=== PATIENT | male | born 1985 | race Caucasian/White ===

== ENCOUNTER 2016-12-30 21:29 | Emergency (ER) | payer MEDICAID ==
[2016-12-30 22:32] LABS: BASO % 0.1 % (0.0-1.0); EOS # 0.1 K/mm3 (0.0-0.50); EOS % 0.9 % (0.0-3.0); LARGE UNSTAINED CELL % 0.3 % (0.0-4.0); LYMPH # 0.4 K/mm3 (1.5-4.5); LYMPH % 2.8 % (24.0-44.0); MEAN CORPUSCULAR HEMOGLOBIN 28.7 pg (27.0-33.0); MEAN CORPUSCULAR HGB CONC 32.9 g/dl (32.0-36.5); MEAN CORPUSCULAR VOLUME 87.4 fl (80.0-96.0); MONO # 0.4 K/mm3 (0.0-0.8); MONO % 3.2 % (0.0-5.0); NEUTROPHILS # 11.7 K/mm3 (1.8-7.7); NEUTROPHILS % 92.7 % (36.0-66.0); PLATELET COUNT, AUTOMATED 278 k/mm3 (150-450); RED CELL DISTRIBUTION WIDTH 13.6 % (11.5-14.5); WHITE BLOOD COUNT 12.6 K/mm3 (4.0-10.0)
[2016-12-30] MEDS ORDERED: ONDANSETRON 4MG/2ML VIAL (J2405) As Ordered ONE (22:32)
[2016-12-30 22:46] LABS: INR 0.95
[2016-12-30 22:53] LABS: ALBUMIN 4.3 GM/DL (3.2-5.2); ALBUMIN/GLOBULIN RATIO 1.08 (1.00-1.93); ALKALINE PHOSPHATASE 195 U/L (45-117); ALT/SGPT 28 U/L (12-78); AMYLASE 136 U/L (25-115); ANION GAP 14 MEQ/L (8-16); AST/SGOT 20 U/L (15-37); BILIRUBIN,DIRECT < 0.1 MG/DL (0.0-0.2); BILIRUBIN,TOTAL 0.4 MG/DL (0.2-1.0); BLOOD UREA NITROGEN 25 MG/DL (7-18); CALCIUM LEVEL 9.2 MG/DL (8.5-10.1); CARBON DIOXIDE LEVEL 27 MEQ/L (21-32); CHLORIDE LEVEL 108 MEQ/L (98-107); CREATININE FOR GFR 0.96 MG/DL (0.70-1.30); GLOMERULAR FILTRATION RATE > 60.0 (>60); GLUCOSE, FASTING 117 MG/DL (70-105); POTASSIUM SERUM 3.6 MEQ/L (3.5-5.1); SODIUM LEVEL 149 MEQ/L (136-145); TOTAL PROTEIN 8.3 GM/DL (6.4-8.2)
--- NOTE | 2016-12-31 00:30 | REPUSA ---
CLINICAL HISTORY: Abdominal pain. TECHNIQUE: Realtime sonographic images were obtained in multiple projections. COMMENTS: Limited evaluation secondary to gaseous distention of the bowels. The liver is of normal size, parenchyma demonstrates normal echogenicity. No discrete hepatic mass is seen. There is no intra or extrahepatic biliary ductal dilatation. CBD measures 2.9 mm. The gallbladder is physiologically distended without evidence of calculi. The gallbladder wall is not thickened and there is no pericholecystic fluid. There is no abdominal as cites. The right kidney measures 9.9x4.7x4.4 cm , free of hydronephrosis. Increased renal echogenicity. IMPRESSION: Increased renal echogenicity. Limited evaluation secondary to gaseous bowel distention. Thank you for your kind referral of this patient.
[2016-12-31] MEDS ORDERED: METOCLOPRAMIDE INJ 10MG/2ML VIAL (J2765) As Ordered ONE (01:09)
[2016-12-31] MEDS ORDERED: ONDANSETRON 4 MG ORAL DISINTEGRATING TAB (S0181) As Ordered ONE (01:38)
--- NOTE | 2016-12-31 02:00 | EDDOCDS ---
Physician Documentation [facility] Name: Waqas Diaz Age: 31 yrs Sex: Male : 1985 Arrival Date: 12/30/2016 Time: 21:29 Bed 6 Private MD: Pat Marks Disposition: 12/31/16 00:28 Discharged to Home/Self Care. Impression: Constipation. - Condition is Stable. - Prescriptions for ZOFRAN ODT 4 mg - dissolve 1 tablet by ORAL route 4 times per day As needed do not chew, do not swallow whole; 10 tablet. - Medication Reconciliation, Local Pharmacy Hours form. - Follow up: Private Physician; When: Call to arrange an appointment; Reason: Recheck today's complaints. - Problem is new. - Symptoms have improved. Historical: - Allergies: tylenol; - Home Meds: 1. felbamate 600 mg oral tab 2.5 tabs bid 2. phenobarbital 32.4 mg Oral tab 1 tab 2 times per day 3. topiramate 100 mg oral tab 2 tabs 2 times per day 4. ranitidine HCl 150 mg Oral cap 1 cap 2 times per day 5. Tab-A-Sandy oral tab daily 6. lisinopril 5 mg Oral tab 1 tab once daily 7. albuterol sulfate 2.5 mg /3 mL (0.083 %) Nebulizer nebu 3 mL 8. Pulmicort 0.25 mg/2 mL Inhl nbsp 9. fleets enema Unknown Unknown every 3 days (Last dose: 12/28/2016) - PMHx: Epilepsy; Cerebral Palsy; Hypertension; GERD; - PSHx: Heel Cord Lengthening; Left Shoulder Reduction; - Social history: Smoking status: Patient states was never smoker of tobacco. No barriers to communication noted. - Family history: Not pertinent. - : The pt / caregiver states he / she is not on anticoagulants. Home medication list is obtained from pill bottles. - Exposure Risk Screening:: None identified. Vital Signs: 12/30 21:32 BP 117 / 81; Pulse 128; Resp 18 S; Temp 98.4(T); Pulse Ox 96% on R/A; Weight 53.52 kg / gr2 117.99 lbs (R); Height 5 ft. 2 in. (157.48 cm) (R); Pain 5/10; 12/31 00:23 BP 136 / 86 (auto/); js15 00:24 Pulse 116; Resp 20; Pulse Ox 94% ; js15 00:53 Pulse Ox 95% ; js15 00:53 BP 163 / 116 (auto/); js15 01:46 BP 140 / 91 (auto/); js15 01:48 Pulse 110; Resp 20; Temp 98.8(TE); Pulse Ox 97% on R/A; js15 12/30 21:32 Body Mass Index 21.58 (53.52 kg, 157.48 cm) gr2 MDM: 12/30 22:02 Ondansetron 4 mg IVP once ordered. ke 22:02 IV Saline Lock ordered. ke 22:02 Undress patient appropriately for examination ordered. ke 22:02 NS 0.9% 1000 ml IV at 250 mL/hr continuous ordered. ke 22:03 Amylase Ordered. EDMS 22:03 Basic Metabolic Profile Ordered. EDMS 22:03 CBC with Diff Ordered. EDMS 22:03 Lipase Ordered. EDMS 22:03 Liver Profile Ordered. EDMS 22:03 Prothrombin Time Profile\E\INR Ordered. EDMS 22:03 Abdomen, Flat\E\Upright,PA Chest Ordered. EDMS 22:05 NOTHING BY MOUTH+DIET ordered. EDMS 22:07 Financial registration complete. ks16 22:08 [facility] Payment Agreement was scanned into [employer] and attached to record. ks16 22:29 Enema - Fleets ordered. ke 22:56 Amylase Reviewed. ke 22:56 Basic Metabolic Profile Reviewed. ke 22:56 CBC with Diff Reviewed. ke 22:56 Liver Profile Reviewed. ke 22:56 Lipase Reviewed. ke 22:56 Prothrombin Time Profile\E\INR Reviewed. ke 22:58 US Gallbladder Ordered. EDMS 23:29 Enema - Fleets ordered. ke 12/31 01:07 Metoclopramide 10 mg IV at 40 mg/hr once over 15 mins ordered. cs11 01:08 Ondansetron ODT Oral Disintegrating Tablet 4 mg PO once; 2 tablets for discharge cs11 ordered. Administered Medications: 12/30 22:32 Drug: NS 0.9% 1000 ml [sodium chloride 0.9 % intravenous solution] Route: IV; Rate: 250 js15 mL/hr; Site: left antecubital; 12/31 01:55 Follow up: IV Status: Completed infusion; IV Intake: 1000ml js15 12/30 22:37 Drug: Ondansetron 4 mg [ondansetron HCl 2 mg/mL intravenous solution (2 mL)] Route: js15 IVP; Site: left antecubital; 12/31 01:15 Drug: Metoclopramide 10 mg [metoclopramide 5 mg/mL injection solution] Route: IV; Rate: js15 40 mg/hr; Infused Over: 15 mins; Site: left antecubital; 01:41 Drug: Ondansetron ODT 4 mg [ondansetron 4 mg disintegrating tablet (1 tabs)] Route: PO; js15 Signatures: Dispatcher [employer] EDMS Fabián Lyon, CIVIL DRAFTSMAN CIVIL DRAFTSMANRob Sun DO DO cs11 Jared BonnerRN RN mb9 Anjali Gaming RN RN js15 Lore Mckeon, Reg Reg ks16 The chart was reviewed and I authenticate all verbal orders and agree with the evaluation and treatment provided.Attachments: 12/30 22:08 [facility] Payment Agreement ks16 MTDD
--- NOTE | 2016-12-31 02:00 | EDDOCDS ---
Nurse's Notes [facility] Name: Waqas Diaz Age: 31 yrs Sex: Male : 1985 Arrival Date: 12/30/2016 Time: 21:29 Bed 6 Private MD: Pat Marks Diagnosis: Constipation Presentation: 12/30 21:40 Presenting complaint: Father states: "He's been vomiting about 8 times today. He ate mb9 breakfast and then he had nothing else the rest of the day". pt's father reports pt last had a bowel movement 3 days ago and that they had to use a fleet enema. Adult Sepsis Screening: The patient does not have new or worsening altered mentation. Patient's respiratory rate is less than 22. Systolic blood pressure is greater than 100. Patient has a qSOFA score of 0- Negative Sepsis Screen. Suicide/Homicide risk assessment- the patient denies having any suicidal and/or homicidal ideations and does not present with any other emotional, behavioral or mental health complaints. Status: Patient is not a service representative or dependent. Transition of care: patient was not received from another setting of care. 21:40 Acuity: LIUS Level 3 mb9 21:40 Method Of Arrival: Walkin/Carried/Asstd mb9 Triage Assessment: 21:50 General: Appears in no apparent distress, Behavior is cooperative. Pain: Unable to use mb9 pain scale. Does not appear to understand pain scale. HIV screening NA for this visit Offered previously. Respiratory: Airway is patent Respiratory effort is even, unlabored. GI: Reports parents report vomiting. Historical: - Allergies: tylenol; - Home Meds: 1. felbamate 600 mg oral tab 2.5 tabs bid 2. phenobarbital 32.4 mg Oral tab 1 tab 2 times per day 3. topiramate 100 mg oral tab 2 tabs 2 times per day 4. ranitidine HCl 150 mg Oral cap 1 cap 2 times per day 5. Tab-A-Sandy oral tab daily 6. lisinopril 5 mg Oral tab 1 tab once daily 7. albuterol sulfate 2.5 mg /3 mL (0.083 %) Nebulizer nebu 3 mL 8. Pulmicort 0.25 mg/2 mL Inhl nbsp 9. fleets enema Unknown Unknown every 3 days (Last dose: 12/28/2016) - PMHx: Epilepsy; Cerebral Palsy; Hypertension; GERD; - PSHx: Heel Cord Lengthening; Left Shoulder Reduction; - Social history: Smoking status: Patient states was never smoker of tobacco. No barriers to communication noted. - Family history: Not pertinent. - : The pt / caregiver states he / she is not on anticoagulants. Home medication list is obtained from pill bottles. - Exposure Risk Screening:: None identified. Screenin/06 00:00 Screening information is obtained from the parent. js15 00:00 Fall risk: At risk due to seizures. The following interventions are performed due to a js15 positive Fall Risk Screen: family at bedside, bed in low position, call light in reach. Assistance ADL's: Requires assistance with meal preparation, this assistance is provided by bathing, assistance is provided by dressing, assistance is provided by toileting, assistance is provided by ambulation, assistance is provided by medication administration, assistance is provided by. Abuse/DV Screen: The patient / caregiver reports he/she is: not in a situation that causes fear, pain or injury. Nutritional screening: No deficits noted. Advance Directives: There is no active DNR order. home support is adequate. Assessment: 12/30 22:30 General: Appears in no apparent distress, Behavior is cooperative. Neurological: Level js15 of Consciousness is awake. Cardiovascular: Heart tones S1 S2 present. Respiratory: Airway is patent Respiratory effort is even, unlabored, Respiratory pattern is regular, symmetrical, Breath sounds are clear bilaterally. GI: Abdomen is distended, Bowel sounds present X 4 quads. Abd is soft and non tender X 4 quads. Derm: Skin is normal. 23:00 Reassessment: Patient appears in no apparent distress at this time. Fleets enema js15 performed; left to dwell per caregiver request; instructed caregiver to use call velazquez when pt was ready to have bowel movement or be cleaned; respirations even and unlabored with intermittent dry heaving; skin normal, warm, dry ;will continue to monitor. 23:34 Reassessment: Patient appears in no apparent distress at this time. Second fleets enema js15 performed per provider order and left to dwell; pt resting on stretcher with eyes closed; respirations even and unlabored; skin normal, warm, dry. 12/31 00:28 General: Appears in no apparent distress, pt had large bowel movement following fleets js15 enema; assisted family with cleaning pt; resting on stretcher, respirations even and unlabored; skin normal, warm, dry. 01:30 Reassessment: Patient appears in no apparent distress at this time. Pt resting on js15 stretcher, respirations even and unlabored; skin pink, warm, dry. Vital Signs: 12/30 21:32 BP 117 / 81; Pulse 128; Resp 18 S; Temp 98.4(T); Pulse Ox 96% on R/A; Weight 53.52 kg gr2 (R); Height 5 ft. 2 in. (157.48 cm) (R); Pain 5/10; 02 00:23 BP 136 / 86 (auto/); js15 00:24 Pulse 116; Resp 20; Pulse Ox 94% ; js15 00:53 Pulse Ox 95% ; js15 00:53 BP 163 / 116 (auto/); js15 01:46 BP 140 / 91 (auto/); js15 01:48 Pulse 110; Resp 20; Temp 98.8(TE); Pulse Ox 97% on R/A; js15 02/ 21:32 Body Mass Index 21.58 (53.52 kg, 157.48 cm) gr2 Vitals: 02 21:32 Log In Time: December 30, 2016 at 21:32. gr2 ED Course: 21:31 Patient visited by Chloe Ortiz. gr2 21:31 CAL MALIN is Private Physician. gr2 21:31 Patient moved to Waiting gr2 21:32 [facility] is Private Physician. gr2 21:33 Patient visited by Chloe Ortiz. gr2 21:33 Patient moved to Pre RCE gr2 21:44 Triage Initiated mb9 21:53 Patient moved to 6 kmg1 21:54 [facility] F[facility]. ke 21:54 Patient visited by Fabián Lyon FNP. ke 21:54 Patient visited by Fabián Lyon FNP. ke 22:08 [facility] Payment Agreement was scanned into [employer] and attached to record. ks16 22:12 Patient name changed from Waqas\\S\\\\S\\Emily\\S\\ to Waqas\\S\\ \\S\\Emily. EDMS 22:29 Patient visited by Fabián Lyon FNP. ke 22:30 Inserted saline lock: 18 gauge in left antecubital area The patient tolerated the js15 procedure well. 22:56 Patient visited by Fabián Lyon FNP. ke 23:03 Patient moved to Ultrasound en 23:28 Patient moved to 6 en 23:29 Patient visited by Fabián Lyon FNP. ke 02 00:00 The patient / caregiver is instructed regarding the plan of care and ED course. js15 00:28 Patient visited by Anjali Gaming RN. js15 00:28 Rob Drake DO is Attending Physician. cs11 00:55 US Gallbladder Returned. EDMS 01:58 Discontinued IV lock intact, bleeding controlled, pressure dressing applied, No js15 redness/swelling at site. No procedures done that require assistance. Administered Medications: 12/30 22:32 Drug: NS 0.9% 1000 ml [sodium chloride 0.9 % intravenous solution] Route: IV; Rate: 250 js15 mL/hr; Site: left antecubital; 12/31 01:55 Follow up: IV Status: Completed infusion; IV Intake: 1000ml js15 12/30 22:37 Drug: Ondansetron 4 mg [ondansetron HCl 2 mg/mL intravenous solution (2 mL)] Route: js15 IVP; Site: left antecubital; 12/31 01:15 Drug: Metoclopramide 10 mg [metoclopramide 5 mg/mL injection solution] Route: IV; Rate: js15 40 mg/hr; Infused Over: 15 mins; Site: left antecubital; 01:41 Drug: Ondansetron ODT 4 mg [ondansetron 4 mg disintegrating tablet (1 tabs)] Route: PO; js15 Intake: 01:55 IV: 1000.00ml; Total: 1000.00ml. js15 Order Results: Lab Order: Amylase; SPEC'M 12/30/16 22:24 Test: AMYLASE; Value: 136; Range: 25-115; Abnormal: Above high normal; Units: U/L; Status: F Lab Order: Basic Metabolic Profile; SPEC'M 12/30/16 22:24 Test: GLUCOSE, FASTING; Value: 117; Range: 70-105; Abnormal: Above high normal; Units: MG/DL; Status: F Test: BLOOD UREA NITROGEN; Value: 25; Range: 7-18; Abnormal: Above high normal; Units: MG/DL; Status: F Test: CREATININE FOR GFR; Value: 0.96; Range: 0.70-1.30; Units: MG/DL; Status: F Test: GLOMERULAR FILTRATION RATE; Value: > 60.0; Range: >60; Status: F Test: SODIUM LEVEL; Value: 149; Range: 136-145; Abnormal: Above high normal; Units: MEQ/L; Status: F Test: POTASSIUM SERUM; Value: 3.6; Range: 3.5-5.1; Units: MEQ/L; Status: F Test: CHLORIDE LEVEL; Value: 108; Range: 98-107; Abnormal: Above high normal; Units: MEQ/L; Status: F Test: CARBON DIOXIDE LEVEL; Value: 27; Range: 21-32; Units: MEQ/L; Status: F Test: ANION GAP; Value: 14; Range: 8-16; Units: MEQ/L; Status: F Test: CALCIUM LEVEL; Value: 9.2; Range: 8.5-10.1; Units: MG/DL; Status: F Test Note: ; Units are mL/min/1.73 m2 Chronic Kidney Disease Staging per NKF: Stage I & II GFR >=60 Normal to Mildly Decreased Stage III GFR 30-59 Moderately Decreased Stage IV GFR 15-29 Severely Decreased Stage V GFR <15 Very Little GFR Left ESRD GFR <15 on LEGAL RECRUITER Lab Order: CBC with Diff; SPEC'M 12/30/16 22:24 Test: WHITE BLOOD COUNT; Value: 12.6; Range: 4.0-10.0; Abnormal: Above high normal; Units: K/mm3; Status: F Test: RED BLOOD COUNT; Value: 4.93; Range: 4.30-6.10; Units: M/mm3; Status: F Test: HEMOGLOBIN; Value: 14.2; Range: 14.0-18.0; Units: g/dl; Status: F Test: HEMATOCRIT; Value: 43.1; Range: 42.0-52.0; Units: %; Status: F Test: MEAN CORPUSCULAR VOLUME; Value: 87.4; Range: 80.0-96.0; Units: fl; Status: F Test: MEAN CORPUSCULAR HEMOGLOBIN; Value: 28.7; Range: 27.0-33.0; Units: pg; Status: F Test: MEAN CORPUSCULAR HGB CONC; Value: 32.9; Range: 32.0-36.5; Units: g/dl; Status: F Test: RED CELL DISTRIBUTION WIDTH; Value: 13.6; Range: 11.5-14.5; Units: %; Status: F Test: PLATELET COUNT, AUTOMATED; Value: 278; Range: 150-450; Units: k/mm3; Status: F Test: NEUTROPHILS %; Value: 92.7; Range: 36.0-66.0; Abnormal: Above high normal; Units: %; Status: F Test: LYMPH %; Value: 2.8; Range: 24.0-44.0; Abnormal: Below low normal; Units: %; Status: F Test: MONO %; Value: 3.2; Range: 0.0-5.0; Units: %; Status: F Test: EOS %; Value: 0.9; Range: 0.0-3.0; Units: %; Status: F Test: BASO %; Value: 0.1; Range: 0.0-1.0; Units: %; Status: F Test: LARGE UNSTAINED CELL %; Value: 0.3; Range: 0.0-4.0; Units: %; Status: F Test: NEUTROPHILS #; Value: 11.7; Range: 1.8-7.7; Abnormal: Above high normal; Units: K/mm3; Status: F Test: LYMPH #; Value: 0.4; Range: 1.5-4.5; Abnormal: Below low normal; Units: K/mm3; Status: F Test: MONO #; Value: 0.4; Range: 0.0-0.8; Units: K/mm3; Status: F Test: EOS #; Value: 0.1; Range: 0.0-0.50; Units: K/mm3; Status: F Test: BASO #; Value: 0.0; Range: 0.0-0.2; Units: K/mm3; Status: F Test: LARGE UNSTAINED CELL #; Value: 0.0; Range: 0.0-0.4; Units: K/mm3; Status: F Lab Order: Lipase; SPEC'M 12/30/16 22:24 Test: LIPASE; Value: 106; Range: 73-393; Units: U/L; Status: F Lab Order: Liver Profile; [facility] 12/30/16 22:24 Test: AST/SGOT; Value: 20; Range: 15-37; Units: U/L; Status: F Test: ALT/SGPT; Value: 28; Range: 12-78; Units: U/L; Status: F Test: ALKALINE PHOSPHATASE; Value: 195; Range: 45-117; Abnormal: Above high normal; Units: U/L; Status: F Test: BILIRUBIN,TOTAL; Value: 0.4; Range: 0.2-1.0; Units: MG/DL; Status: F Test: BILIRUBIN,DIRECT; Value: < 0.1; Range: 0.0-0.2; Units: MG/DL; Status: F Test: TOTAL PROTEIN; Value: 8.3; Range: 6.4-8.2; Abnormal: Above high normal; Units: GM/DL; Status: F Test: ALBUMIN; Value: 4.3; Range: 3.2-5.2; Units: GM/DL; Status: F Test: ALBUMIN/GLOBULIN RATIO; Value: 1.08; Range: 1.00-1.93; Status: F Lab Order: Prothrombin Time Profile\\E\\INR; [facility] 12/30/16 22:24 Test: PROTHROMBIN TIME; Value: 12.8; Range: 12.3-14.5; Units: SECONDS; Status: F Test: INR; Value: 0.95; Status: F Test Note: ; THERAPUTIC HUMAN INR VALUES INDICATIONS NORMAL RANGES PROPHYLAXIS/TREATMENT OF: VENOUS THROMBOSIS 2.0-3.0 PULMONARY EMBOLISM 2.0-3.0 PREVENTION OF SYSTEMIC EMBOLISM FROM: TISSUE HEART VALVES 2.0-3.0 ACUTE MYOCARDIAL INFARCTION 2.0-3.0 VALVULAR HEART DISEASE 2.0-3.0 ATRIAL FIBRILLATION 2.0-3.0 MECHANICAL VALVES(HIGH RISK) 2.5-3.5 RECURRENT MYOCARDIAL INFARCTION 2.5-3.5 Radiology Order: US Gallbladder Test: US Gallbladder REASON FOR EXAMINATION: Biliary Colic; ; CLINICAL HISTORY: Abdominal pain.; TECHNIQUE: Realtime sonographic images were obtained in multiple projections.; COMMENTS:; Limited evaluation secondary to gaseous distention of the bowels.; The liver is of normal size, parenchyma demonstrates normal echogenicity. No discrete hepatic mass is; seen.; There is no intra or extrahepatic biliary ductal dilatation. CBD measures 2.9 mm.; The gallbladder is physiologically distended without evidence of calculi.; The gallbladder wall is not thickened and there is no pericholecystic fluid. There is no abdominal as; cites.; The right kidney measures 9.9x4.7x4.4 cm , free of hydronephrosis. Increased renal echogenicity.; IMPRESSION:; Increased renal echogenicity.; Limited evaluation secondary to gaseous bowel distention.; Thank you for your kind referral of this patient.; ; Outcome: 00:28 Discharge ordered by Provider. cs11 01:58 Discharge Assessment: Patient awake and alert. patient administered narcotics - no. The js15 following High Risk Discharge criteria are identified: None. Discharged to home via wheelchair, with family, with parent. Condition: stable. Discharge instructions given to parents Instructed on discharge instructions, follow up and referral plans. medication usage, Demonstrated understanding of instructions, medications, Pt was receptive of discharge instructions/ teaching. Prescriptions given X 1. Ultrasound Study completed. Property given to family. 01:59 Patient left the ED. js15 Signatures: Dispatcher [employer] EDMS Day Alfonso, RN RN kmg1 Fabián Lyon, CLEARING SUPERVISOR CLEARING SUPERVISOR Rob Mejia DO DO cs11 Chloe Ortiz gr2 Jared Bonner,RN RN mb9 Anjali Gaming RN RN js15 Louise Arrieta Kimberly, Reg Reg ks16 MTDD
--- NOTE | 2016-12-31 08:53 | REP ---
Abdominal series: Three views. History: Abdomen pain. Findings: AP chest x-ray shows no evidence of infiltrate. Heart is not enlarged. Supine and cross-table lateral views of the abdomen show no evidence of free intraperitoneal air. There is air and stool in a nondistended colon. No small or large bowel dilation is seen. Flank stripes are intact. Impression: Unremarkable bowel gas pattern. No evidence of free air or obstruction. Signed by Dat Mcgrath MD 12/31/2016 02:25 P
[2017-01-01] MEDS ORDERED: ENEM1ENE4 PR (18:34)
[2017-01-01] MEDS ORDERED: BUDE0.254 INH (18:34)
[2017-01-01] MEDS ORDERED: IBUP-1114 PO (18:34)
[2017-01-01] MEDS ORDERED: MUCI600T34 PO (18:34)
[2017-01-01] MEDS ORDERED: PHEN32.4 PO (18:34)
[2017-01-01] MEDS ORDERED: TAB-TAB PO (18:34)
[2017-01-01] MEDS ORDERED: ALBU83IN INH (18:34)
[2017-01-01] MEDS ORDERED: RANI150T PO (18:34)
[2017-01-01] MEDS ORDERED: TOPI1TAB31 PO (18:34)
[2017-01-01] MEDS ORDERED: FELB600T5 PO (18:34)
[2017-01-01] MEDS ORDERED: LISI-542 PO (18:34)
--- NOTE | 2017-01-02 03:00 | EDDOCDS ---
Physician Documentation [facility] Name: Waaqs Diaz Age: 31 yrs Sex: Male : 1985 Arrival Date: 12/30/2016 Time: 21:29 Bed 6 Private MD: Pat Marks Disposition: 12/31/16 00:28 Discharged to Home/Self Care. Impression: Constipation. - Condition is Stable. - Prescriptions for ZOFRAN ODT 4 mg - dissolve 1 tablet by ORAL route 4 times per day As needed do not chew, do not swallow whole; 10 tablet. - Medication Reconciliation, Local Pharmacy Hours form. - Follow up: Private Physician; When: Call to arrange an appointment; Reason: Recheck today's complaints. - Problem is new. - Symptoms have improved. Historical: - Allergies: tylenol; - Home Meds: 1. felbamate 600 mg oral tab 2.5 tabs bid 2. phenobarbital 32.4 mg Oral tab 1 tab 2 times per day 3. topiramate 100 mg oral tab 2 tabs 2 times per day 4. ranitidine HCl 150 mg Oral cap 1 cap 2 times per day 5. Tab-A-Sandy oral tab daily 6. lisinopril 5 mg Oral tab 1 tab once daily 7. albuterol sulfate 2.5 mg /3 mL (0.083 %) Nebulizer nebu 3 mL 8. Pulmicort 0.25 mg/2 mL Inhl nbsp 9. fleets enema Unknown Unknown every 3 days (Last dose: 12/28/2016) - PMHx: Epilepsy; Cerebral Palsy; Hypertension; GERD; - PSHx: Heel Cord Lengthening; Left Shoulder Reduction; - Social history: Smoking status: Patient states was never smoker of tobacco. No barriers to communication noted. - Family history: Not pertinent. - : The pt / caregiver states he / she is not on anticoagulants. Home medication list is obtained from pill bottles. - Exposure Risk Screening:: None identified. Vital Signs: 12/30 21:32 BP 117 / 81; Pulse 128; Resp 18 S; Temp 98.4(T); Pulse Ox 96% on R/A; Weight 53.52 kg / gr2 117.99 lbs (R); Height 5 ft. 2 in. (157.48 cm) (R); Pain 5/10; 12/31 00:23 BP 136 / 86 (auto/); js15 00:24 Pulse 116; Resp 20; Pulse Ox 94% ; js15 00:53 Pulse Ox 95% ; js15 00:53 BP 163 / 116 (auto/); js15 01:46 BP 140 / 91 (auto/); js15 01:48 Pulse 110; Resp 20; Temp 98.8(TE); Pulse Ox 97% on R/A; js15 12/30 21:32 Body Mass Index 21.58 (53.52 kg, 157.48 cm) gr2 MDM: 12/30 22:02 Ondansetron 4 mg IVP once ordered. ke 22:02 IV Saline Lock ordered. ke 22:02 Undress patient appropriately for examination ordered. ke 22:02 NS 0.9% 1000 ml IV at 250 mL/hr continuous ordered. ke 22:03 Amylase Ordered. EDMS 22:03 Basic Metabolic Profile Ordered. EDMS 22:03 CBC with Diff Ordered. EDMS 22:03 Lipase Ordered. EDMS 22:03 Liver Profile Ordered. EDMS 22:03 Prothrombin Time Profile\E\INR Ordered. EDMS 22:03 Abdomen, Flat\E\Upright,PA Chest Ordered. EDMS 22:05 NOTHING BY MOUTH+DIET ordered. EDMS 22:07 Financial registration complete. [email or web address] 22:08 [facility] Payment Agreement was scanned into Mobi[employer] and attached to record. ks16 22:29 Enema - Fleets ordered. ke 22:56 Amylase Reviewed. ke 22:56 Basic Metabolic Profile Reviewed. ke 22:56 CBC with Diff Reviewed. ke 22:56 Liver Profile Reviewed. ke 22:56 Lipase Reviewed. ke 22:56 Prothrombin Time Profile\E\INR Reviewed. ke 22:58 US Gallbladder Ordered. EDMS 23:29 Enema - Fleets ordered. ke 12/31 01:07 Metoclopramide 10 mg IV at 40 mg/hr once over 15 mins ordered. cs11 01:08 Ondansetron ODT Oral Disintegrating Tablet 4 mg PO once; 2 tablets for discharge cs11 ordered. 11:53 T-Sheet-- Draft Copy was scanned into MobiApps and attached to record. gb 01/01 17:54 ED course: [facility] faxed formal report of rachna haro for fu mlg. ml Administered Medications: 12/30 22:32 Drug: NS 0.9% 1000 ml [sodium chloride 0.9 % intravenous solution] Route: IV; Rate: 250 js15 mL/hr; Site: left antecubital; 12/31 01:55 Follow up: IV Status: Completed infusion; IV Intake: 1000ml js15 12/30 22:37 Drug: Ondansetron 4 mg [ondansetron HCl 2 mg/mL intravenous solution (2 mL)] Route: js15 IVP; Site: left antecubital; 12/31 01:15 Drug: Metoclopramide 10 mg [metoclopramide 5 mg/mL injection solution] Route: IV; Rate: js15 40 mg/hr; Infused Over: 15 mins; Site: left antecubital; 01:41 Drug: Ondansetron ODT 4 mg [ondansetron 4 mg disintegrating tablet (1 tabs)] Route: PO; js15 Signatures: Dispatcher MedHost EDValeri Sherman MD MD Melina Jara, Reg Reg gb Fabián Lyon, HIDE CURER HIDE CURER Rob Mejia, DO cs11 Jared BonnerRN RN mb9 Anjali Gaming RN RN js15 Lore Mckeon, Reg Reg ks16 The chart was reviewed and I authenticate all verbal orders and agree with the evaluation and treatment provided.Attachments: 12/30 22:08 [facility] Payment Agreement [email or web address] 12/31 11:53 T-Sheet-- Draft Copy gb Chart Complete MTDD
--- NOTE | 2017-01-02 03:00 | EDDOCDS ---
Physician Documentation [facility] Name: Waqas Diaz Age: 31 yrs Sex: Male : 1985 Arrival Date: 12/30/2016 Time: 21:29 Bed 6 Private MD: Pat Marks Disposition: 12/31/16 00:28 Discharged to Home/Self Care. Impression: Constipation. - Condition is Stable. - Prescriptions for ZOFRAN ODT 4 mg - dissolve 1 tablet by ORAL route 4 times per day As needed do not chew, do not swallow whole; 10 tablet. - Medication Reconciliation, Local Pharmacy Hours form. - Follow up: Private Physician; When: Call to arrange an appointment; Reason: Recheck today's complaints. - Problem is new. - Symptoms have improved. Historical: - Allergies: tylenol; - Home Meds: 1. felbamate 600 mg oral tab 2.5 tabs bid 2. phenobarbital 32.4 mg Oral tab 1 tab 2 times per day 3. topiramate 100 mg oral tab 2 tabs 2 times per day 4. ranitidine HCl 150 mg Oral cap 1 cap 2 times per day 5. Tab-A-Sandy oral tab daily 6. lisinopril 5 mg Oral tab 1 tab once daily 7. albuterol sulfate 2.5 mg /3 mL (0.083 %) Nebulizer nebu 3 mL 8. Pulmicort 0.25 mg/2 mL Inhl nbsp 9. fleets enema Unknown Unknown every 3 days (Last dose: 12/28/2016) - PMHx: Epilepsy; Cerebral Palsy; Hypertension; GERD; - PSHx: Heel Cord Lengthening; Left Shoulder Reduction; - Social history: Smoking status: Patient states was never smoker of tobacco. No barriers to communication noted. - Family history: Not pertinent. - : The pt / caregiver states he / she is not on anticoagulants. Home medication list is obtained from pill bottles. - Exposure Risk Screening:: None identified. Vital Signs: 12/30 21:32 BP 117 / 81; Pulse 128; Resp 18 S; Temp 98.4(T); Pulse Ox 96% on R/A; Weight 53.52 kg / gr2 117.99 lbs (R); Height 5 ft. 2 in. (157.48 cm) (R); Pain 5/10; 12/31 00:23 BP 136 / 86 (auto/); js15 00:24 Pulse 116; Resp 20; Pulse Ox 94% ; js15 00:53 Pulse Ox 95% ; js15 00:53 BP 163 / 116 (auto/); js15 01:46 BP 140 / 91 (auto/); js15 01:48 Pulse 110; Resp 20; Temp 98.8(TE); Pulse Ox 97% on R/A; js15 12/30 21:32 Body Mass Index 21.58 (53.52 kg, 157.48 cm) gr2 MDM: 12/30 22:02 Ondansetron 4 mg IVP once ordered. ke 22:02 IV Saline Lock ordered. ke 22:02 Undress patient appropriately for examination ordered. ke 22:02 NS 0.9% 1000 ml IV at 250 mL/hr continuous ordered. ke 22:03 Amylase Ordered. EDMS 22:03 Basic Metabolic Profile Ordered. EDMS 22:03 CBC with Diff Ordered. EDMS 22:03 Lipase Ordered. EDMS 22:03 Liver Profile Ordered. EDMS 22:03 Prothrombin Time Profile\E\INR Ordered. EDMS 22:03 Abdomen, Flat\E\Upright,PA Chest Ordered. EDMS 22:05 NOTHING BY MOUTH+DIET ordered. EDMS 22:07 Financial registration complete. [email or web address] 22:08 [facility] Payment Agreement was scanned into On[employer] and attached to record. ks16 22:29 Enema - Fleets ordered. ke 22:56 Amylase Reviewed. ke 22:56 Basic Metabolic Profile Reviewed. ke 22:56 CBC with Diff Reviewed. ke 22:56 Liver Profile Reviewed. ke 22:56 Lipase Reviewed. ke 22:56 Prothrombin Time Profile\E\INR Reviewed. ke 22:58 US Gallbladder Ordered. EDMS 23:29 Enema - Fleets ordered. ke 12/31 01:07 Metoclopramide 10 mg IV at 40 mg/hr once over 15 mins ordered. cs11 01:08 Ondansetron ODT Oral Disintegrating Tablet 4 mg PO once; 2 tablets for discharge cs11 ordered. 11:53 T-Sheet-- Draft Copy was scanned into Onavo and attached to record. gb 01/01 17:54 ED course: [facility] faxed formal report of rachna haro for fu mlg. ml Administered Medications: 12/30 22:32 Drug: NS 0.9% 1000 ml [sodium chloride 0.9 % intravenous solution] Route: IV; Rate: 250 js15 mL/hr; Site: left antecubital; 12/31 01:55 Follow up: IV Status: Completed infusion; IV Intake: 1000ml js15 12/30 22:37 Drug: Ondansetron 4 mg [ondansetron HCl 2 mg/mL intravenous solution (2 mL)] Route: js15 IVP; Site: left antecubital; 12/31 01:15 Drug: Metoclopramide 10 mg [metoclopramide 5 mg/mL injection solution] Route: IV; Rate: js15 40 mg/hr; Infused Over: 15 mins; Site: left antecubital; 01:41 Drug: Ondansetron ODT 4 mg [ondansetron 4 mg disintegrating tablet (1 tabs)] Route: PO; js15 Signatures: Dispatcher MedHost EDValeri Sherman MD MD Melina Jara, Reg Reg gb Fabián Lyon, .NET PROGRAMMER .NET PROGRAMMER Rob Mejia, DO cs11 Jared BonnerRN RN mb9 Anjali Gaming RN RN js15 Lore Mckeon, Reg Reg ks16 The chart was reviewed and I authenticate all verbal orders and agree with the evaluation and treatment provided.Attachments: 12/30 22:08 [facility] Payment Agreement [email or web address] 12/31 11:53 T-Sheet-- Draft Copy gb Chart Complete MTDD
--- NOTE | 2017-01-02 03:00 | EDDOCDS ---
Nurse's Notes [facility] Name: Waqas Diaz Age: 31 yrs Sex: Male : 1985 Arrival Date: 12/30/2016 Time: 21:29 Bed 6 Private MD: Pat Marks Diagnosis: Constipation Presentation: 12/30 21:40 Presenting complaint: Father states: "He's been vomiting about 8 times today. He ate mb9 breakfast and then he had nothing else the rest of the day". pt's father reports pt last had a bowel movement 3 days ago and that they had to use a fleet enema. Adult Sepsis Screening: The patient does not have new or worsening altered mentation. Patient's respiratory rate is less than 22. Systolic blood pressure is greater than 100. Patient has a qSOFA score of 0- Negative Sepsis Screen. Suicide/Homicide risk assessment- the patient denies having any suicidal and/or homicidal ideations and does not present with any other emotional, behavioral or mental health complaints. 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 Transition of care: patient was not received from another setting of care. 21:40 Acuity: LUIS Level 3 mb9 21:40 Method Of Arrival: Walkin/Carried/Asstd mb9 Triage Assessment: 21:50 General: Appears in no apparent distress, Behavior is cooperative. Pain: Unable to use mb9 pain scale. Does not appear to understand pain scale. HIV screening NA for this visit Offered previously. Respiratory: Airway is patent Respiratory effort is even, unlabored. GI: Reports parents report vomiting. Historical: - Allergies: tylenol; - Home Meds: 1. felbamate 600 mg oral tab 2.5 tabs bid 2. phenobarbital 32.4 mg Oral tab 1 tab 2 times per day 3. topiramate 100 mg oral tab 2 tabs 2 times per day 4. ranitidine HCl 150 mg Oral cap 1 cap 2 times per day 5. Tab-A-Sandy oral tab daily 6. lisinopril 5 mg Oral tab 1 tab once daily 7. albuterol sulfate 2.5 mg /3 mL (0.083 %) Nebulizer nebu 3 mL 8. Pulmicort 0.25 mg/2 mL Inhl nbsp 9. fleets enema Unknown Unknown every 3 days (Last dose: 12/28/2016) - PMHx: Epilepsy; Cerebral Palsy; Hypertension; GERD; - PSHx: Heel Cord Lengthening; Left Shoulder Reduction; - Social history: Smoking status: Patient states was never smoker of tobacco. No barriers to communication noted. - Family history: Not pertinent. - : The pt / caregiver states he / she is not on anticoagulants. Home medication list is obtained from pill bottles. - Exposure Risk Screening:: None identified. Screenin/06 00:00 Screening information is obtained from the parent. js15 00:00 Fall risk: At risk due to seizures. The following interventions are performed due to a js15 positive Fall Risk Screen: family at bedside, bed in low position, call light in reach. Assistance ADL's: Requires assistance with meal preparation, this assistance is provided by bathing, assistance is provided by dressing, assistance is provided by toileting, assistance is provided by ambulation, assistance is provided by medication administration, assistance is provided by. Abuse/DV Screen: The patient / caregiver reports he/she is: not in a situation that causes fear, pain or injury. Nutritional screening: No deficits noted. Advance Directives: There is no active DNR order. home support is adequate. Assessment: 12/30 22:30 General: Appears in no apparent distress, Behavior is cooperative. Neurological: Level js15 of Consciousness is awake. Cardiovascular: Heart tones S1 S2 present. Respiratory: Airway is patent Respiratory effort is even, unlabored, Respiratory pattern is regular, symmetrical, Breath sounds are clear bilaterally. GI: Abdomen is distended, Bowel sounds present X 4 quads. Abd is soft and non tender X 4 quads. Derm: Skin is normal. 23:00 Reassessment: Patient appears in no apparent distress at this time. Fleets enema js15 performed; left to dwell per caregiver request; instructed caregiver to use call velazquez when pt was ready to have bowel movement or be cleaned; respirations even and unlabored with intermittent dry heaving; skin normal, warm, dry ;will continue to monitor. 23:34 Reassessment: Patient appears in no apparent distress at this time. Second fleets enema js15 performed per provider order and left to dwell; pt resting on stretcher with eyes closed; respirations even and unlabored; skin normal, warm, dry. 12/31 00:28 General: Appears in no apparent distress, pt had large bowel movement following fleets js15 enema; assisted family with cleaning pt; resting on stretcher, respirations even and unlabored; skin normal, warm, dry. 01:30 Reassessment: Patient appears in no apparent distress at this time. Pt resting on js15 stretcher, respirations even and unlabored; skin pink, warm, dry. Vital Signs: 12/30 21:32 BP 117 / 81; Pulse 128; Resp 18 S; Temp 98.4(T); Pulse Ox 96% on R/A; Weight 53.52 kg gr2 (R); Height 5 ft. 2 in. (157.48 cm) (R); Pain 5/10; 02 00:23 BP 136 / 86 (auto/); js15 00:24 Pulse 116; Resp 20; Pulse Ox 94% ; js15 00:53 Pulse Ox 95% ; js15 00:53 BP 163 / 116 (auto/); js15 01:46 BP 140 / 91 (auto/); js15 01:48 Pulse 110; Resp 20; Temp 98.8(TE); Pulse Ox 97% on R/A; js15 02/ 21:32 Body Mass Index 21.58 (53.52 kg, 157.48 cm) gr2 Vitals: 02 21:32 Log In Time: December 30, 2016 at 21:32. gr2 ED Course: 21:31 Patient visited by Chloe Ortiz. gr2 21:31 CAL MALIN is Private Physician. gr2 21:31 Patient moved to Waiting gr2 21:32 [facility] is Private Physician. gr2 21:33 Patient visited by Chloe Ortiz. gr2 21:33 Patient moved to Pre RCE gr2 21:44 Triage Initiated mb9 21:53 Patient moved to 6 kmg1 21:54 [facility] ke 21:54 Patient visited by Fabián Lyon FNP. ke 21:54 Patient visited by Fabián Lyon FNP. ke 22:08 [facility] Payment Agreement was scanned into [employer] and attached to record. ks16 22:12 Patient name changed from Waqas\\S\\\\S\\Emily\\S\\ to Waqas\\S\\ \\S\\Emily. EDMS 22:29 Patient visited by Fabián Lyon FNP. ke 22:30 Inserted saline lock: 18 gauge in left antecubital area The patient tolerated the js15 procedure well. 22:56 Patient visited by Fabián Lyon FNP. ke 23:03 Patient moved to Ultrasound en 23:28 Patient moved to 6 en 23:29 Patient visited by Fabián Lyon FNP. ke 12/31 00:00 The patient / caregiver is instructed regarding the plan of care and ED course. js15 00:28 Patient visited by Anjali Gaming RN. js15 00:28 Rob Drake DO is Attending Physician. cs11 00:55 US Gallbladder Returned. EDMS 01:58 Discontinued IV lock intact, bleeding controlled, pressure dressing applied, No js15 redness/swelling at site. No procedures done that require assistance. 08:57 Abdomen, Flat\\E\\Upright,PA Chest Returned. EDMS 11:53 T-Sheet-- Draft Copy was scanned into [employer] and attached to record. gb Administered Medications: 12/30 22:32 Drug: NS 0.9% 1000 ml [sodium chloride 0.9 % intravenous solution] Route: IV; Rate: 250 js15 mL/hr; Site: left antecubital; 12/31 01:55 Follow up: IV Status: Completed infusion; IV Intake: 1000ml 15 12/30 22:37 Drug: Ondansetron 4 mg [ondansetron HCl 2 mg/mL intravenous solution (2 mL)] Route: js15 IVP; Site: left antecubital; 12/31 01:15 Drug: Metoclopramide 10 mg [metoclopramide 5 mg/mL injection solution] Route: IV; Rate: js15 40 mg/hr; Infused Over: 15 mins; Site: left antecubital; 01:41 Drug: Ondansetron ODT 4 mg [ondansetron 4 mg disintegrating tablet (1 tabs)] Route: PO; Intake: 01:55 IV: 1000.00ml; Total: 1000.00ml. js15 Order Results: Lab Order: Amylase; SPEC'M 12/30/16 22:24 Test: AMYLASE; Value: 136; Range: 25-115; Abnormal: Above high normal; Units: U/L; Status: F Lab Order: Basic Metabolic Profile; SPEC'M 12/30/16 22:24 Test: GLUCOSE, FASTING; Value: 117; Range: 70-105; Abnormal: Above high normal; Units: MG/DL; Status: F Test: BLOOD UREA NITROGEN; Value: 25; Range: 7-18; Abnormal: Above high normal; Units: MG/DL; Status: F Test: CREATININE FOR GFR; Value: 0.96; Range: 0.70-1.30; Units: MG/DL; Status: F Test: GLOMERULAR FILTRATION RATE; Value: > 60.0; Range: >60; Status: F Test: SODIUM LEVEL; Value: 149; Range: 136-145; Abnormal: Above high normal; Units: MEQ/L; Status: F Test: POTASSIUM SERUM; Value: 3.6; Range: 3.5-5.1; Units: MEQ/L; Status: F Test: CHLORIDE LEVEL; Value: 108; Range: 98-107; Abnormal: Above high normal; Units: MEQ/L; Status: F Test: CARBON DIOXIDE LEVEL; Value: 27; Range: 21-32; Units: MEQ/L; Status: F Test: ANION GAP; Value: 14; Range: 8-16; Units: MEQ/L; Status: F Test: CALCIUM LEVEL; Value: 9.2; Range: 8.5-10.1; Units: MG/DL; Status: F Test Note: ; Units are mL/min/1.73 m2 Chronic Kidney Disease Staging per NKF: Stage I & II GFR >=60 Normal to Mildly Decreased Stage III GFR 30-59 Moderately Decreased Stage IV GFR 15-29 Severely Decreased Stage V GFR <15 Very Little GFR Left ESRD GFR <15 on [employer] Lab Order: CBC with Diff; SPEC'M 12/30/16 22:24 Test: WHITE BLOOD COUNT; Value: 12.6; Range: 4.0-10.0; Abnormal: Above high normal; Units: K/mm3; Status: F Test: RED BLOOD COUNT; Value: 4.93; Range: 4.30-6.10; Units: M/mm3; Status: F Test: HEMOGLOBIN; Value: 14.2; Range: 14.0-18.0; Units: g/dl; Status: F Test: HEMATOCRIT; Value: 43.1; Range: 42.0-52.0; Units: %; Status: F Test: MEAN CORPUSCULAR VOLUME; Value: 87.4; Range: 80.0-96.0; Units: fl; Status: F Test: MEAN CORPUSCULAR HEMOGLOBIN; Value: 28.7; Range: 27.0-33.0; Units: pg; Status: F Test: MEAN CORPUSCULAR HGB CONC; Value: 32.9; Range: 32.0-36.5; Units: g/dl; Status: F Test: RED CELL DISTRIBUTION WIDTH; Value: 13.6; Range: 11.5-14.5; Units: %; Status: F Test: PLATELET COUNT, AUTOMATED; Value: 278; Range: 150-450; Units: k/mm3; Status: F Test: NEUTROPHILS %; Value: 92.7; Range: 36.0-66.0; Abnormal: Above high normal; Units: %; Status: F Test: LYMPH %; Value: 2.8; Range: 24.0-44.0; Abnormal: Below low normal; Units: %; Status: F Test: MONO %; Value: 3.2; Range: 0.0-5.0; Units: %; Status: F Test: EOS %; Value: 0.9; Range: 0.0-3.0; Units: %; Status: F Test: BASO %; Value: 0.1; Range: 0.0-1.0; Units: %; Status: F Test: LARGE UNSTAINED CELL %; Value: 0.3; Range: 0.0-4.0; Units: %; Status: F Test: NEUTROPHILS #; Value: 11.7; Range: 1.8-7.7; Abnormal: Above high normal; Units: K/mm3; Status: F Test: LYMPH #; Value: 0.4; Range: 1.5-4.5; Abnormal: Below low normal; Units: K/mm3; Status: F Test: MONO #; Value: 0.4; Range: 0.0-0.8; Units: K/mm3; Status: F Test: EOS #; Value: 0.1; Range: 0.0-0.50; Units: K/mm3; Status: F Test: BASO #; Value: 0.0; Range: 0.0-0.2; Units: K/mm3; Status: F Test: LARGE UNSTAINED CELL #; Value: 0.0; Range: 0.0-0.4; Units: K/mm3; Status: F Lab Order: Lipase; [facility] 12/30/16 22:24 Test: LIPASE; Value: 106; Range: 73-393; Units: U/L; Status: F Lab Order: Liver Profile; [facility] 12/30/16 22:24 Test: AST/SGOT; Value: 20; Range: 15-37; Units: U/L; Status: F Test: ALT/SGPT; Value: 28; Range: 12-78; Units: U/L; Status: F Test: ALKALINE PHOSPHATASE; Value: 195; Range: 45-117; Abnormal: Above high normal; Units: U/L; Status: F Test: BILIRUBIN,TOTAL; Value: 0.4; Range: 0.2-1.0; Units: MG/DL; Status: F Test: BILIRUBIN,DIRECT; Value: < 0.1; Range: 0.0-0.2; Units: MG/DL; Status: F Test: TOTAL PROTEIN; Value: 8.3; Range: 6.4-8.2; Abnormal: Above high normal; Units: GM/DL; Status: F Test: ALBUMIN; Value: 4.3; Range: 3.2-5.2; Units: GM/DL; Status: F Test: ALBUMIN/GLOBULIN RATIO; Value: 1.08; Range: 1.00-1.93; Status: F Lab Order: Prothrombin Time Profile\\E\\INR; [facility] 12/30/16 22:24 Test: PROTHROMBIN TIME; Value: 12.8; Range: 12.3-14.5; Units: SECONDS; Status: F Test: INR; Value: 0.95; Status: F Test Note: ; THERAPUTIC HUMAN INR VALUES INDICATIONS NORMAL RANGES PROPHYLAXIS/TREATMENT OF: VENOUS THROMBOSIS 2.0-3.0 PULMONARY EMBOLISM 2.0-3.0 PREVENTION OF SYSTEMIC EMBOLISM FROM: TISSUE HEART VALVES 2.0-3.0 ACUTE MYOCARDIAL INFARCTION 2.0-3.0 VALVULAR HEART DISEASE 2.0-3.0 ATRIAL FIBRILLATION 2.0-3.0 MECHANICAL VALVES(HIGH RISK) 2.5-3.5 RECURRENT MYOCARDIAL INFARCTION 2.5-3.5 Radiology Order: Abdomen, Flat\\E\\Upright,PA Chest Test: Abdomen, Flat\\E\\Upright,PA Chest REASON FOR EXAMINATION: Abdomen Pain; Abdominal series: Three views.; ; History: Abdomen pain.; ; Findings: AP chest x-ray shows no evidence of infiltrate. Heart is not; enlarged.; ; Supine and cross-table lateral views of the abdomen show no evidence of free; intraperitoneal air. There is air and stool in a nondistended colon. No small; or large bowel dilation is seen. Flank stripes are intact.; ; Impression:; ; Unremarkable bowel gas pattern. No evidence of free air or obstruction.; ; ; Signed by; Dat Mcgrath MD 12/31/2016 02:25 P; Radiology Order: US Gallbladder Test: US Gallbladder REASON FOR EXAMINATION: Biliary Colic; ; CLINICAL HISTORY: Abdominal pain.; TECHNIQUE: Realtime sonographic images were obtained in multiple projections.; COMMENTS:; Limited evaluation secondary to gaseous distention of the bowels.; The liver is of normal size, parenchyma demonstrates normal echogenicity. No discrete hepatic mass is; seen.; There is no intra or extrahepatic biliary ductal dilatation. CBD measures 2.9 mm.; The gallbladder is physiologically distended without evidence of calculi.; The gallbladder wall is not thickened and there is no pericholecystic fluid. There is no abdominal as; cites.; The right kidney measures 9.9x4.7x4.4 cm , free of hydronephrosis. Increased renal echogenicity.; IMPRESSION:; Increased renal echogenicity.; Limited evaluation secondary to gaseous bowel distention.; Thank you for your kind referral of this patient.; ; Outcome: 00:28 Discharge ordered by Provider. cs11 01:58 Discharge Assessment: Patient awake and alert. patient administered narcotics - no. The js15 following High Risk Discharge criteria are identified: None. Discharged to home via wheelchair, with family, with parent. Condition: stable. Discharge instructions given to parents Instructed on discharge instructions, follow up and referral plans. medication usage, Demonstrated understanding of instructions, medications, Pt was receptive of discharge instructions/ teaching. Prescriptions given X 1. Ultrasound Study completed. Property given to family. 01:59 Patient left the ED. js15 Signatures: Dispatcher MedHoDay Syed, RN RN kmg1 Melina Jara, Reg Reg gb Fabián Lyon, ROCKET SCIENTIST ROCKET SCIENTIST Rob Mejia, DO GARNER cs11 Chloe Ortiz gr2 Jared Bonner,RN RN mb9 Anjali Gaming,RN RN js15 Louise Arrieta Kimberly, Reg Reg ks16 Chart Complete MTDD
== END 2016-12-31 01:59 | disposition home or self-care (01) ==
LOC: M ED 21:29
DX: K59.00 Constipation, unspecified (principal); I10 Essential (primary) hypertension; G80.9 Cerebral palsy, unspecified; G40.909 Epilepsy, unspecified, not intractable, without status epilepticus; K21.9 Gastro-esophageal reflux disease without esophagitis; Z79.899 Other long term (current) drug therapy; Z88.6 Allergy status to analgesic agent
CPT/HCPCS: 74022; 76705; 80048; 80076; 82150; 83690; 85025; 85610; 96361; 96374; 96375; 99284; J2405; J2765

== ENCOUNTER 2017-01-01 15:31 | Inpatient (IN) | payer MEDICAID ==
[~2017-01-01] VITALS: Ht 157.5 cm; Wt 47.8 kg
[2017-01-01 16:50] LABS: MEAN CORPUSCULAR HEMOGLOBIN 29.3 pg (27.0-33.0); MEAN CORPUSCULAR HGB CONC 32.9 g/dl (32.0-36.5); RED CELL DISTRIBUTION WIDTH 13.7 % (11.5-14.5)
[2017-01-01 17:15] LABS: CALCIUM LEVEL 8.2 MG/DL (8.5-10.1); GLOMERULAR FILTRATION RATE 30.5 (>60); POTASSIUM SERUM 3.1 MEQ/L (3.5-5.1)
[2017-01-01 17:27] LABS: CREATININE FOR GFR 2.61 MG/DL (0.70-1.30)
[2017-01-01] MEDS ORDERED: TOPI1TAB31 PO (18:34)
[2017-01-01] MEDS ORDERED: LISI-542 PO (18:34)
[2017-01-01] MEDS ORDERED: RANI150T PO (18:34)
[2017-01-01] MEDS ORDERED: ALBU83IN INH (18:34)
[2017-01-01] MEDS ORDERED: FELB600T5 PO (18:34)
[2017-01-01] MEDS ORDERED: IBUP-1114 PO (18:34)
[2017-01-01] MEDS ORDERED: ENEM1ENE4 PR (18:34)
[2017-01-01] MEDS ORDERED: TAB-TAB PO (18:34)
[2017-01-01] MEDS ORDERED: PHEN32.4 PO (18:34)
[2017-01-01] MEDS ORDERED: MUCI600T34 PO (18:34)
[2017-01-01] MEDS ORDERED: BUDE0.254 INH (18:34)
[2017-01-01] MEDS ORDERED: NS 1,000 ML IV SCH (19:45)
[2017-01-01 20:18] LABS: ALBUMIN 3.8 GM/DL (3.2-5.2); ALBUMIN/GLOBULIN RATIO 0.95 (1.00-1.93); BILIRUBIN,TOTAL 0.2 MG/DL (0.2-1.0); TOTAL PROTEIN 7.8 GM/DL (6.4-8.2)
--- NOTE | 2017-01-01 20:50 | REPUSA ---
CT of the abdomen and pelvis without contrast Clinical statement: Pain. Technique: Multiple axial CT images were obtained from the base of the lungs to the floor of the pelv is utilizing 5 mm axial slices without administration of contrast. Coronal and sagittal reconstructio ns were also obtained. Comparison: 01/05/2015. Findings: Chest: The visualized lung bases are clear. Abdomen: The kidneys are normal in size bilaterally. There is no evidence of hydronephrosis or nephro lithiasis. The liver, spleen, pancreas, gallbladder and adrenal glands are unremarkable. The aorta de monstrates normal caliber and contour. There is no abdominal lymphadenopathy or ascites. Pelvis: Moderate amount of stool fills the colon. The bowel is otherwise unremarkable, with no obstru ctive or inflammatory changes. The appendix is normal. The urinary bladder is within normal limits. T here is no pelvic lymphadenopathy or ascites. The other pelvic structures appear unremarkable. Bones: There are no suspicious osseous abnormalities seen. Impression: Moderate constipation. No other acute findings.
--- NOTE | 2017-01-01 21:33 | HPEPDOC ---
Medical History and Physical Date of Admission Jan 01, 2017 at 19:45 History and Physical PRIMARY CARE PROVIDER: ATTENDING: Chelsea Hines MD CHIEF COMPLAINT: Generalized weakness dehydration HISTORY OF PRESENT ILLNESS: This is a 31-year-old male past medical history of cerebral palsy, epilepsy, GERD, hypertension and presents with nausea/vomiting and generalized weakness. Patient is nonverbal at baseline and parents gave most of the history. Patient had upper respiratory tract infection 2 weeks ago after which he's been having nausea and nonbilious nonbloody vomiting. Patient's been having a very poor appetite and has not been eating very much. Patient is also been having a decrease in urination. In the ED patient was noted to have acute renal failure as well as hypernatremia. Patient was also hypotensive with systolic blood pressure in the low 80s. Patient was started on normal saline IV fluids given 2 L boluses. PAST MEDICAL HISTORY: As per HPI PAST SURGICAL HISTORY: Teeth extraction SOCIAL HISTORY: No tobacco, alcohol, illicit drug use. Lives with family. FAMILY HISTORY: Noncontributory ALLERGIES: Please see below. REVIEW OF SYSTEMS: Patient is nonverbal given his cerebral palsy. History is from parents. HEENT: Denies sore throat/headache CARDIOVASCULAR: Denies chest pain/palpitations RESPIRATORY: No shortness of breath/cough GASTROINTESTINAL: denies nausea/vomiting GENITOURINARY: Denies dysuria/urinary urgency. MUSCULOSKELETAL: Denies myalgias/arthralgias NEUROLOGICAL: Denies any focal weakness Rest of ROS negative. HOME MEDICATIONS: Please see below. PHYSICAL EXAMINATION: Vitals: (see below) General: No acute distress, laying comfortably in bed. Sleeping. Easily arousable. HEENT: Moist mucous membranes. Neck: No JVD or lymphadenopathy Cardiac: RRR, No murmurs Pulm: Clear to auscultation b/l. No wheezing, rhonchi Abd: NT/ND + BS Ext: No edema or cyanosis LABORATORY DATA: See below. IMAGING: CT Abd/pelvis 01/01/17 Findings: Chest: The visualized lung bases are clear. Abdomen: The kidneys are normal in size bilaterally. There is no evidence of hydronephrosis or nephrolithiasis. The liver, spleen, pancreas, gallbladder and adrenal glands are unremarkable. The aorta demonstrates normal caliber and contour. There is no abdominal lymphadenopathy or ascites. Pelvis: Moderate amount of stool fills the colon. The bowel is otherwise unremarkable, with no obstructive or inflammatory changes. The appendix is normal. The urinary bladder is within normal limits. There is no pelvic lymphadenopathy or ascites. The other pelvic structures appear unremarkable. Bones: There are no suspicious osseous abnormalities seen. Impression: Moderate constipation. No other acute findings MICROBIOLOGY: Please see below. ASSESSMENT/PLAN: Severe dehydration,likely the setting of gastroenteritis. Patient's nausea and vomiting have improved. His sodium was 154 formed presentation is getting normal saline IV fluids. His fluids were changed to D5 normal saline. We'll continue to monitor sodium level. Zofran and Protonix. CT abdomen pelvis negative. Acute kidney injury- likely prerenal secondary to her dehydration, ACEi, NSAIDs. Continue IV fluid resuscitation avoid nephrotoxins. Hold lisinopril. Hypokalemia - replaced. Leukocytosis - likely reactive. No source of infection at this time. Trend and monitor for sources of infection. Blood cx ordered. UA negative. CXR pending. Epilepsy- Continue patient's antiepileptic medications. Family states that the patient has been having seizures daily since he was a child. We will order EEG. Will need neurology follow-up outpatient. GERD- continue PPI Hypertension- patient's currently hypotensive we will hold lisinopril. DVT prophylaxis- heparin subcutaneous Patient will be followed by Dr. Dow starting 01/02/17 at 7 AM. Vital Signs Blood pressure 130/71, heart rate 90, respiratory rate 17, oxygen saturation 98 % on room air, afebrile. Laboratory Data Labs 24H Laboratory Tests 2 01/01/17 16:33: Blood Urea Nitrogen 44#H, Creatinine 2.61#H, Sodium Level 154H, Potassium Level 3.1L, Chloride Level 113H, Carbon Dioxide Level 30, Calcium Level 8.2L, Aspartate Amino Transf (AST/SGOT) 20, Alanine Aminotransferase (ALT/SGPT) 28, Alkaline Phosphatase 153H, Total Bilirubin 0.2, Total Protein 7.8, Albumin 3.8, Albumin/Globulin Ratio 0.95L, Anion Gap 11, Glomerular Filtration Rate 30.5L 01/01/17 17:10: Urine Amorphous Sediment , Urine Appearance HAZY, Urine Color DELMIS, Urine pH 5.0, Urine Specific Sterling 1.025, Urine Protein 2+H, Urine Glucose (UA) 1+H, Urine Ketones 1+H, Urine Urobilinogen 2.0H, Urine Bilirubin 1+H, Urine Leukocyte Esterase NEGATIVE, Urine Bacteria (Auto) NEGATIVE, Urine Blood NEGATIVE, Urine Calcium Carbonate Cryst(Auto) , Urine Calcium Oxalate Cryst ( Auto) , Urine Calcium Phosphate Naina (Auto) , Urine Cellular Casts , Urine Cystine Crystals , Urine Granular Casts (Auto) , Urine Hyaline Casts (Auto) 0, Urine Leucine Crystals , Urine Mucus (Auto) SMALL, Urine Nitrite NEGATIVE, Urine Oval Fat Bodies (Auto) , Urine RBC (Auto) 0, Urine Renal Epithelial Cells , Urine Sperm (Auto) , Urine Squamous Epithelial Cells 0, Urine Transitional Epithelial Cells , Urine Trichomonas (Auto) , Urine Triple Phosphate Cryst (Auto ) , Urine Tyrosine Crystals , Urine Uric Acid Crystals (Auto) , Urine WBC (Auto ) 1, Urine Waxy Casts (Auto) , Urine Yeast-Like Cells (Auto) CBC/BMP Laboratory Tests 01/01/17 16:33 Calcium Level 8.2 L, Aspartate Amino Transf (AST/SGOT) 20, Alanine Aminotransferase (ALT/SGPT) 28, Alkaline Phosphatase 153 H, Total Bilirubin 0.2 , Total Protein 7.8, Albumin 3.8, Red Blood Count 4.39, Mean Corpuscular Volume 89.0, Mean Corpuscular Hemoglobin 29.3, Mean Corpuscular Hemoglobin Concent 32.9 , Red Cell Distribution Width 13.7 Home Medications Scheduled (Felbamate) 600 Mg Tab 900 MG PO BID (Tab-A-Sandy) 1 Tab Tab 1 TAB PO DAILY Lisinopril (Lisinopril) 5 Mg Tab 5 MG PO QHS Phenobarbital (Phenobarbital) 32.4 Mg Tab 32.4 MG PO BID Ranitidine HCl (Ranitidine HCl) 150 Mg Tab 1 TAB PO BID Topiramate (Topiramate) 100 Mg Tab 200 MG PO BID Scheduled PRN (Enema) 1 Amy Amy 1 AMY WI Q3DP PRN PRN CONSTIPATION Albuterol Sulfate (Albuterol Sulfate) 2.5 Mg/3 Ml Nebu 2.5 MG INH TID PRN PRN SHORTNESS OF BREATH Budesonide (Budesonide) 0.25 Mg/2 Ml Neb 0.25 MG INH QID PRN PRN SHORTNESS OF BREATH Chlorpromazine HCl (Chlorpromazine HCl) 25 Mg Tab 25 MG PO Q6HP PRN PRN hiccups Guaifenesin (Mucinex) 600 Mg Tab 600 MG PO BID PRN PRN CONGESTION Allergies Coded Allergies: Acetaminophen (Unverified Allergy, Unknown, INTERACTS WITH FELBATOL MED, ) CHELSEA HINES MD Jan 01, 2017 21:33
[2017-01-01 21:45] VITALS: BP 138/71
--- NOTE | 2017-01-01 21:52 | EDDOCDS ---
Nurse's Notes [facility] Name: Waqas Diaz Age: 31 yrs Sex: Male : 1985 Arrival Date: 01/01/2017 Time: 15:31 Bed I3 / M3 Private MD: Pat Marks Diagnosis: Dehydration;Acute kidney failure Presentation: 01/01 15:38 Presenting complaint: Mother states: was at [facility] and was told that he was hs1 dehydrated. Patient was seen here Saturday and given fluids and he is back here for same. Presenting complaint: patient will not eat per family. Ongoing issues of not wanting to eat. The last date and time the patient was known to be well was was at 15:39 on December 14, 2016. No acute neurological deficit is noted. Pre-hospital glucose is not applicable to this patient. Adult Sepsis Screening: The patient does not have new or worsening altered mentation. Patient's respiratory rate is less than 22. Systolic blood pressure is greater than 100. Patient has a qSOFA score of 0- Negative Sepsis Screen. Suicide/Homicide risk assessment- Unable to assess, due to patient's chronic mental disability. 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 Transition of care: Patient was received from [facility]. 15:38 Acuity: LUIS Level 3 hs1 15:38 Method Of Arrival: Walkin/Carried/Asstd hs1 Triage Assessment: 15:42 The onset of the patients symptoms was more than three hours ago. General: Appears in hs1 no apparent distress. Pain: Unable to use pain scale. Does not appear to understand pain scale. HIV screening NA for this visit Offered previously. Neurological: Level of Consciousness is awake, mother states not drooling like normal. Patient alert however lethargic at times. . Reports no additional symptoms. Historical: - Allergies: tylenolmother states interacts with other medication; - Home Meds: 1. albuterol sulfate 2.5 mg /3 mL (0.083 %) Inhl nebu 3 mL 2. felbamate 600 mg oral tab 2.5 tabs bid 3. fleets enema Unknown every 3 days 4. lisinopril 5 mg Oral tab 1 tab once daily 5. phenobarbital 32.4 mg Oral tab 1 tab 2 times per day 6. Pulmicort 0.25 mg/2 mL Inhl nbsp 7. ranitidine HCl 150 mg Oral cap 1 cap 2 times per day 8. Tab-A-Sandy oral tab daily 9. topiramate 100 mg oral tab 2 tabs 2 times per day 10. Mucinex DM 30-600 mg oral Tb12 1 tab as needed 11. ibuprofen 200 mg Oral tab 2 tabs as needed - PMHx: Cerebral Palsy; Epilepsy; GERD; Hypertension; - PSHx: Heel Cord Lengthening; Left Shoulder Reduction; - Social history: Smoking status: Patient states was never smoker of tobacco. No barriers to communication noted, The patient speaks fluent Pashto, Speaks appropriately for age. - Family history: Not pertinent. - : The pt / caregiver states he / she is not on anticoagulants. Home medication list is obtained from family members, the caregiver. - Exposure Risk Screening:: None identified. Screenin:52 Screening information is obtained from the parent. Fall risk: At risk due to mcp immobility. Assistance ADL's: Requires assistance with meal preparation, this assistance is provided by family members, bathing, assistance is provided by family members, dressing, assistance is provided by family members, toileting, assistance is provided by family members, ambulation, assistance is provided by family members, housework, assistance is provided by family members, medication administration, assistance is provided by family members. Abuse/DV Screen: The patient / caregiver reports he/she is: not in a situation that causes fear, pain or injury. Nutritional screening: No deficits noted. home support is adequate. 21:42 Advance Directives: There is no active DNR order. mlc Assessment: 16:49 General: Appears in no apparent distress, Behavior is cooperative. Pain: Unable to use [facility] pain scale. Does not appear to understand pain scale. Neurological: No deficits noted. Respiratory: Airway is patent Respiratory effort is even, unlabored. GI: Parent/caregiver reports the patient having diarrhea, vomiting. Derm: Skin is pale. 17:13 General: IV patent and infusing well--site without any signs of infiltration. No mcp vomiting noted. 19:45 Reassessment: Patient appears in no apparent distress at this time. Patient states cf2 feeling better. Patient states symptoms have improved. Adult Sepsis Screening: The patient does not have new or worsening altered mentation. Patient's respiratory rate is less than 22. Systolic blood pressure is greater than 100. Patient has a qSOFA score of 0- Negative Sepsis Screen. 19:45 General: Patient received with parents at bedside. No s/s distress, patient playing cf2 with toy. . 21:40 General: Appears in no apparent distress, comfortable, Behavior is cooperative. mlc Respiratory: Airway is patent Respiratory effort is even, unlabored, Respiratory pattern is regular. Derm: Skin is pale. Vital Signs: 15:34 BP 87 / 56; Pulse 98; Resp 18; Temp 97.0(T); Pulse Ox 96% on R/A; Weight 49.9 kg; dem1 Height 5 ft. 2 in. (157.48 cm); 16:16 BP 90 / 68 RA Sitting (man/pedi); dem1 19:46 BP 98 / 55; Pulse 97; Resp 18; Temp 97.2; Pulse Ox 96% ; ajs 21:37 BP 104 / 55; Pulse 105; Resp 18; Temp 96.2; Pulse Ox 98% ; ajs 15:34 Body Mass Index 20.12 (49.90 kg, 157.48 cm) [facility] Vitals: 15:34 Log In Time: January 01, 2017 at 15:30. RN notified that patient meets Red Flag dem1 criteria. ED Course: 15:33 Patient visited by Vinayak Deal. dem1 15:33 Patient moved to Waiting dem1 15:34 [facility] is Private Physician. dem1 15:34 Patient visited by Vinayak Deal. dem1 15:34 Patient moved to Pre RCE dem1 15:40 Triage Initiated hs1 16:09 Fabián Lyon FNP is [facility]. ke 16:09 Patient visited by Fabián Lyon FNP. ke 16:09 Patient visited by Fabián Lyon FNP. ke 16:09 Patient moved to Triage 3 dem1 16:16 Patient visited by Vinayak Deal. dem1 16:20 Patient moved to I3 / M3 dem1 16:48 Patient visited by Fabián Lyon FNP. ke 16:51 Inserted saline lock: 20 gauge in left forearm and blood collected. The patient mcp tolerated the procedure well. Labs drawn. (by ED staff). Sent per order to lab. 16:53 The patient / caregiver is instructed regarding the plan of care and ED course. Patient mcp has correct armband on for positive identification. Placed in gown. Bed in low position. Call light in reach. Side rails up X2. Adult w/ patient. 16:54 Patient visited by Korina Gibbs RN. mcp 17:11 UA Sent. mcp 17:11 Quick cath inserted 16 Fr. Specimen obtained. Returned vladislav urine. Patient tolerated mcp well. 17:12 Patient visited by Korina Gibbs RN. mcp 17:14 Patient visited by Korina Gibbs RN. [facility] 17:39 Patient visited by Fabián Lyon FNP. ke 17:51 Cosmo Hines is Hospitalizing Provider. ke 18:07 Patient has correct armband on for positive identification. Placed in gown. Bed in low jam1 position. Call light in reach. Side rails up X2. Adult w/ patient. Door closed. 18:09 Patient name changed from Waqas\S\\S\Emily\S\ to Waqas\S\ \S\Emily. EDMS 18:11 [facility] Payment Agreement was scanned into [employer] and attached to record. [id number] 20:21 Odalys Doherty,KATHE is Primary Nurse. cf2 20:21 Patient visited by Odalys Doherty RN. cf2 21:02 CT ABD & PELVIS W/O CONTRAST Returned. EDMS 21:38 Patient visited by Mirela Ortez. ajs 21:40 No procedures done that require assistance. mlc 21:46 Patient visited by Odalys Doherty RN. cf2 Administered Medications: 16:49 Drug: NS 0.9% 1000 ml [sodium chloride 0.9 % intravenous solution] Route: IV; Rate: mcp bolus; Site: left wrist; 18:37 Drug: NS 0.9% 1000 ml [sodium chloride 0.9 % intravenous solution] Route: IV; Rate: mcp bolus; Site: left wrist; Order Results: Lab Order: CBC; SPEC'M 01/01/17 16:33 Test: WHITE BLOOD COUNT; Value: 13.0; Range: 4.0-10.0; Abnormal: Above high normal; Units: K/mm3; Status: F Test: RED BLOOD COUNT; Value: 4.39; Range: 4.30-6.10; Units: M/mm3; Status: F Test: HEMOGLOBIN; Value: 12.8; Range: 14.0-18.0; Abnormal: Below low normal; Units: g/dl; Status: F Test: HEMATOCRIT; Value: 39.1; Range: 42.0-52.0; Abnormal: Below low normal; Units: %; Status: F Test: MEAN CORPUSCULAR VOLUME; Value: 89.0; Range: 80.0-96.0; Units: fl; Status: F Test: MEAN CORPUSCULAR HEMOGLOBIN; Value: 29.3; Range: 27.0-33.0; Units: pg; Status: F Test: MEAN CORPUSCULAR HGB CONC; Value: 32.9; Range: 32.0-36.5; Units: g/dl; Status: F Test: RED CELL DISTRIBUTION WIDTH; Value: 13.7; Range: 11.5-14.5; Units: %; Status: F Test: PLATELET COUNT, AUTOMATED; Value: 254; Range: 150-450; Units: k/mm3; Status: F Lab Order: ; SPEC'M 01/01/17 17:10 Test: APPEARANCE, URINE; Value: HAZY; Range: CLEAR; Status: F Test: COLOR, URINE; Value: VLADISLAV; Range: YELLOW; Status: F Test: PH,URINE; Value: 5.0; Range: 5.0-9.0; Units: UNITS; Status: F Test: SPECIFIC GRAVITY URINE AUTO; Value: 1.025; Range: 1.002-1.035; Status: F Test: PROTEIN, URINE AUTO; Value: 2+; Range: NEGATIVE; Abnormal: Above high normal; Units: mg/dL; Status: F Test: GLUCOSE, URINE (UA) AUTO; Value: 1+; Range: NEGATIVE; Abnormal: Above high normal; Units: mg/dL; Status: F Test: KETONE, URINE AUTO; Value: 1+; Range: NEGATIVE; Abnormal: Above high normal; Units: mg/dL; Status: F Test: UROBILINOGEN, URINE AUTO; Value: 2.0; Range: 0.0-2.0; Abnormal: Above high normal; Units: mg/dL; Status: F Test: BILIRUBIN, URINE AUTO; Value: 1+; Range: NEGATIVE; Abnormal: Above high normal; Status: F Test: NITRITE, URINE AUTO; Value: NEGATIVE; Range: NEGATIVE; Status: F Test: LEUKOCYTE ESTERASE, URINE AUTO; Value: NEGATIVE; Range: NEGATIVE; Status: F Test: BLOOD, URINE BLOOD; Value: NEGATIVE; Range: NEGATIVE; Status: F Test: WBC, URINE AUTO; Value: 1; Range: 0-3; Units: /HPF; Status: F Test: RBC, URINE AUTO; Value: 0; Range: 0-3; Units: /HPF; Status: F Test: BACTERIA, URINE AUTO; Value: NEGATIVE; Range: NEGATIVE; Status: F Test: SQUAMOUS EPITHELIAL CELL UR AU; Value: 0; Range: 0-6; Units: /HPF; Status: F Test: MUCUS, URINE; Value: SMALL; Range: NEGATIVE; Status: F Test: HYALINE CAST, URINE AUTO; Value: 0; Range: 0-1; Units: /LPF; Status: F Lab Order: COMPLETE COMPHRENSIVE METABOLI; SPEC'M 01/01/17 16:33 Test: GLUCOSE, FASTING; Value: 114; Range: 70-105; Abnormal: Above high normal; Units: MG/DL; Status: F Test: BLOOD UREA NITROGEN; Value: 44; Range: 7-18; Abnormal: High; Units: MG/DL; Status: F Test: CREATININE FOR GFR; Value: 2.61; Range: 0.70-1.30; Abnormal: High; Units: MG/DL; Status: F Test: GLOMERULAR FILTRATION RATE; Value: 30.5; Range: >60; Abnormal: Below low normal; Status: F Test: SODIUM LEVEL; Value: 154; Range: 136-145; Abnormal: Above high normal; Units: MEQ/L; Status: F Test: POTASSIUM SERUM; Value: 3.1; Range: 3.5-5.1; Abnormal: Below low normal; Units: MEQ/L; Status: F Test: CHLORIDE LEVEL; Value: 113; Range: 98-107; Abnormal: Above high normal; Units: MEQ/L; Status: F Test: CARBON DIOXIDE LEVEL; Value: 30; Range: 21-32; Units: MEQ/L; Status: F Test: ANION GAP; Value: 11; Range: 8-16; Units: MEQ/L; Status: F Test: CALCIUM LEVEL; Value: 8.2; Range: 8.5-10.1; Abnormal: Below low normal; Units: MG/DL; Status: F Test: AST/SGOT; Value: 20; Range: 15-37; Units: U/L; Status: F Test: ALT/SGPT; Value: 28; Range: 12-78; Units: U/L; Status: F Test: ALKALINE PHOSPHATASE; Value: 153; Range: 45-117; Abnormal: Above high normal; Units: U/L; Status: F Test: BILIRUBIN,TOTAL; Value: 0.2; Range: 0.2-1.0; Units: MG/DL; Status: F Test: TOTAL PROTEIN; Value: 7.8; Range: 6.4-8.2; Units: GM/DL; Status: F Test: ALBUMIN; Value: 3.8; Range: 3.2-5.2; Units: GM/DL; Status: F Test: ALBUMIN/GLOBULIN RATIO; Value: 0.95; Range: 1.00-1.93; Abnormal: Below low normal; Status: F Test Note: ; Units are mL/min/1.73 m2 Chronic Kidney Disease Staging per NKF: Stage I & II GFR >=60 Normal to Mildly Decreased Stage III GFR 30-59 Moderately Decreased Stage IV GFR 15-29 Severely Decreased Stage V GFR <15 Very Little GFR Left ESRD GFR <15 on MID LEVEL JAVA DEVELOPER Radiology Order: CT ABD & PELVIS W/O CONTRAST Test: CT ABD & PELVIS W/O CONTRAST REASON FOR EXAMINATION: n/v, abd pain. Cerebral palsy - history limited.; ; CT of the abdomen and pelvis without contrast; Clinical statement: Pain.; Technique: Multiple axial CT images were obtained from the base of the lungs to the floor of the pelv; is utilizing 5 mm axial slices without administration of contrast. Coronal and sagittal reconstructio; ns were also obtained.; Comparison: 01/05/2015.; Findings:; Chest: The visualized lung bases are clear.; Abdomen: The kidneys are normal in size bilaterally. There is no evidence of hydronephrosis or nephro; lithiasis. The liver, spleen, pancreas, gallbladder and adrenal glands are unremarkable. The aorta de; monstrates normal caliber and contour. There is no abdominal lymphadenopathy or ascites.; Pelvis: Moderate amount of stool fills the colon. The bowel is otherwise unremarkable, with no obstru; ctive or inflammatory changes. The appendix is normal. The urinary bladder is within normal limits. T; here is no pelvic lymphadenopathy or ascites. The other pelvic structures appear unremarkable.; Bones: There are no suspicious osseous abnormalities seen.; Impression: Moderate constipation. No other acute findings.; ; Outcome: 17:52 Decision to Hospitalize by Provider. ke 21:40 Discharge Assessment: Patient awake, alert and oriented x 3. No cognitive and/or mlc functional deficits noted. Patient verbalized understanding of disposition instructions. patient administered narcotics - no. The following High Risk Discharge criteria are identified: None. Admitted to Med/Surg accompanied by tech, family with patient, via stretcher. Condition: stable. Property :Personal belongings accompany Pt. 21:41 CT Study completed. mlc 21:50 Patient left the ED. [facility] [place] Signatures: Dispatcher [employer] EDMS Sonali Reyes, RN Korina Ricketts RN RN mcp Murphy, Jane, LPN RN HOSPICE LPN RN HOSPICE [facility] Fabián Lyon, RADIOLOGY INTERVENTIONAL PHYSICIAN RADIOLOGY INTERVENTIONAL PHYSICIAN Demetria Coronado RN RN 1 Mirela Ortez Demeishia dem1 Booth, Mandy, RN RN [facility] [place] Lore Mckeon, Reg Reg [id number] Odalys Doherty,RN RN cf2 Corrections: (The following items were deleted from the chart) 16:24 15:38 Transition of care: patient was not received from another setting of care. hs1 kcs 17:08 17:07 Pt greeted and oriented to ED. Patient advised of names of staff involved in [facility] care, location of call velazquez, wait times and NPO status. jam1 MTDD
--- NOTE | 2017-01-01 21:52 | EDDOCDS ---
Physician Documentation [facility] Name: Waqas Diaz Age: 31 yrs Sex: Male : 1985 Arrival Date: 01/01/2017 Time: 15:31 Bed I3 / M3 Private MD: Pat Marks Disposition: 01/01/17 17:52 Hospitalization ordered by Cosmo Hines for Inpatient Admission. Preliminary diagnosis are Dehydration, Acute kidney failure. - Bed requested for 4 [place]. - Status is Inpatient Admission. mlc - Condition is Stable. - Problem is an acute exacerbation. - Symptoms are unchanged. Historical: - Allergies: tylenolmother states interacts with other medication; - Home Meds: 1. albuterol sulfate 2.5 mg /3 mL (0.083 %) Inhl nebu 3 mL 2. felbamate 600 mg oral tab 2.5 tabs bid 3. fleets enema Unknown every 3 days 4. lisinopril 5 mg Oral tab 1 tab once daily 5. phenobarbital 32.4 mg Oral tab 1 tab 2 times per day 6. Pulmicort 0.25 mg/2 mL Inhl nbsp 7. ranitidine HCl 150 mg Oral cap 1 cap 2 times per day 8. Tab-A-Sandy oral tab daily 9. topiramate 100 mg oral tab 2 tabs 2 times per day 10. Mucinex DM 30-600 mg oral Tb12 1 tab as needed 11. ibuprofen 200 mg Oral tab 2 tabs as needed - PMHx: Cerebral Palsy; Epilepsy; GERD; Hypertension; - PSHx: Heel Cord Lengthening; Left Shoulder Reduction; - Social history: Smoking status: Patient states was never smoker of tobacco. No barriers to communication noted, The patient speaks fluent Monegasque, Speaks appropriately for age. - Family history: Not pertinent. - : The pt / caregiver states he / she is not on anticoagulants. Home medication list is obtained from family members, the caregiver. - Exposure Risk Screening:: None identified. Vital Signs: 01/01 15:34 BP 87 / 56; Pulse 98; Resp 18; Temp 97.0(T); Pulse Ox 96% on R/A; Weight 49.9 kg / dem1 110.01 lbs; Height 5 ft. 2 in. (157.48 cm); 16:16 BP 90 / 68 RA Sitting (man/pedi); dem1 19:46 BP 98 / 55; Pulse 97; Resp 18; Temp 97.2; Pulse Ox 96% ; ajs 21:37 BP 104 / 55; Pulse 105; Resp 18; Temp 96.2; Pulse Ox 98% ; ajs 15:34 Body Mass Index 20.12 (49.90 kg, 157.48 cm) dem1 MDM: 16:19 IV Saline Lock ordered. ke 16:19 NS 0.9% 1000 ml IV at bolus once ordered. ke 16:19 Straight cath ordered. ke 16:20 CBC Ordered. EDMS 16:20 UA Ordered. EDMS 16:33 Financial registration complete. ks16 17:39 CBC Reviewed. ke 18:11 [facility] Payment Agreement was scanned into FP Complete and attached to record. ks16 18:32 NS 0.9% 1000 ml IV at bolus once ordered. ke 19:51 Admission / Observation Status ordered. EDMS 19:52 NPO DIET ordered. EDMS 19:52 CBC WITH DIFFERENTIAL Ordered. EDMS 19:52 COMPLETE COMPHRENSIVE METABOLI Ordered. EDMS 20:14 CT ABD & PELVIS W/O CONTRAST Ordered. EDMS 21:20 BASIC METABOLIC PROFILE Ordered. EDMS 21:20 MAGNESIUM LEVEL Ordered. EDMS Administered Medications: 16:49 Drug: NS 0.9% 1000 ml [sodium chloride 0.9 % intravenous solution] Route: IV; Rate: mcp bolus; Site: left wrist; 18:37 Drug: NS 0.9% 1000 ml [sodium chloride 0.9 % intravenous solution] Route: IV; Rate: mcp bolus; Site: left wrist; Signatures: Dispatcher MedHo EDNE Nirmala Grya RN RN daFabián Patricia, ROULETTE DEALER ROULETTE DEALER Demetria Coronado RN RN hs1 Lucia Jasmine RN RN mlc Sorenson, Kimberly, Reg Reg [email or web address] Korina Gibbs RN, mcp The chart was reviewed and I authenticate all verbal orders and agree with the evaluation and treatment provided.Corrections: (The following items were deleted from the chart) 20:04 16:20 BASIC METABOLIC PROFILE+LAB ordered. EDMS EDMS 20:04 17:39 BASIC METABOLIC PROFILE+LAB reviewed. EDMS 20:04 19:52 COMPLETE COMPHRENSIVE METABOLI ordered. EDMS EDMS Attachments: 18:11 [facility] Payment Agreement [email or web address] MTDD
[2017-01-01 22:00] VITALS: BP 138/71
[2017-01-01] MEDS ORDERED: FLEET ENEMA PR PRN (22:15)
[2017-01-01] MEDS ORDERED: BUDESONIDE 0.25 MG/2 ML INHALATION SUSPENSION INH PRN (22:15)
[2017-01-01] MEDS ORDERED: ALBUTEROL SULFATE 2.5 MG/0.5 ML INH NEB SOLN INH PRN (22:15)
[2017-01-01] MEDS ORDERED: guaiFENesin ER 600 MG TAB PO PRN (22:15)
[2017-01-01 22:47] LABS: CALCIUM LEVEL 7.4 MG/DL (8.5-10.1); CREATININE FOR GFR 2.79 MG/DL (0.70-1.30); GLOMERULAR FILTRATION RATE 28.2 (>60); POTASSIUM SERUM 3.1 MEQ/L (3.5-5.1)
--- NOTE | 2017-01-01 23:20 | REPUSA ---
Clinical history: Congestion. Comparison: None. Findings: The mediastinum and cardiac silhouette are within normal limits. The lungs are clear. No pl eural effusion or pneumothorax is seen. The osseous structures and soft tissues are unremarkable. Impression: No acute disease.
[2017-01-01] MEDS: TOPIRAMATE (TopAMAX) 100 MG TAB PO SCH (23:37)
[2017-01-01] MEDS: HEPARIN SOD (PORCINE) 5000 UNITS/ML VIAL SC SCH (23:38)
[2017-01-01] MEDS: PHENobarbital 30 MG TAB PO SCH (23:38)
[2017-01-01] MEDS: KCL 10MEQ IN 100ML SWI (KRUN) 10 MEQ in APPROPRIATE DILUENT 1 EA IV SCH ×2 (23:39)
[2017-01-02] VITALS (7 sets, daily range): BP systolic 104–135; BP diastolic 54–72
[2017-01-02] MEDS: FELBAMATE 600 MG PO SCH ×3 (00:09→20:24)
[2017-01-02] MEDS: D5W/0.9% SODIUM CHLORIDE 1,000 ML IV SCH ×3 (00:26→12:15)
[2017-01-02] MEDS: KCL 10MEQ IN 100ML SWI (KRUN) 10 MEQ in APPROPRIATE DILUENT 1 EA IV SCH ×6 (00:48→03:17)
[2017-01-02] MEDS: HEPARIN SOD (PORCINE) 5000 UNITS/ML VIAL SC SCH ×3 (05:53→22:27)
[2017-01-02 06:06] LABS: BASO % 0.4 % (0.0-1.0); EOS % 0.4 % (0.0-3.0); LARGE UNSTAINED CELL # 0.1 K/mm3 (0.0-0.4); LARGE UNSTAINED CELL % 1.9 % (0.0-4.0); LYMPH # 0.8 K/mm3 (1.5-4.5); LYMPH % 13.5 % (24.0-44.0); MEAN CORPUSCULAR HEMOGLOBIN 28.9 pg (27.0-33.0); MEAN CORPUSCULAR HGB CONC 32.1 g/dl (32.0-36.5); MONO # 0.4 K/mm3 (0.0-0.8); MONO % 6.5 % (0.0-5.0); NEUTROPHILS # 4.3 K/mm3 (1.8-7.7); NEUTROPHILS % 77.4 % (36.0-66.0); PLATELET COUNT, AUTOMATED 180 k/mm3 (150-450); RED CELL DISTRIBUTION WIDTH 13.8 % (11.5-14.5); WHITE BLOOD COUNT 5.5 K/mm3 (4.0-10.0)
[2017-01-02 06:20] LABS: ALBUMIN 2.8 GM/DL (3.2-5.2); ALBUMIN/GLOBULIN RATIO 0.88 (1.00-1.93); BILIRUBIN,TOTAL 0.2 MG/DL (0.2-1.0); CALCIUM LEVEL 7.4 MG/DL (8.5-10.1); CREATININE FOR GFR 2.8 MG/DL (0.70-1.30); GLOMERULAR FILTRATION RATE 28.1 (>60); POTASSIUM SERUM 3.1 MEQ/L (3.5-5.1)
[2017-01-02] MEDS: PHENobarbital 30 MG TAB PO SCH ×2 (08:03→20:24)
[2017-01-02] MEDS: PANTOPRAZOLE 40MG INJ (PROTONIX) (C9113) IV SCH (08:03)
[2017-01-02] MEDS: TOPIRAMATE (TopAMAX) 100 MG TAB PO SCH ×2 (08:04→20:24)
--- NOTE | 2017-01-02 14:17 | IPNPDOC ---
Subjective General Date Seen The patient was seen on 01/02/17. Chief Complaint/HPI The patient is a 31-year-old male admitted with a reason for visit of Dehydration;Renal Failure. Subjective General: Reports: ROS Unobtainable Objective Physical Examination General Exam: Positive: Alert, No Acute Distress ENT Exam: Positive: Atraumatic Neck Exam: Positive: Supple Chest Exam: Positive: Clear to auscultation, Normal air movement Heart Exam: Positive: Rate Normal, Regular Rhythm Abdomen Exam: Positive: Normal bowel sounds, Soft, Negative: Tenderness Assessment /Plan Problems Problems: (1) Constipation Status: Acute Response to Treatment: Progressing Discussed With: Health Care Proxy Problem Specific Plan: Monitor Clinically Problem Text: Enemas PRN. (2) MARLON (acute kidney injury) Status: Acute Discussed With: Health Care Proxy Problem Specific Plan: Consult Specialist, Repeat Labs Problem Text: UA noted with 2+ proteinuria. However no indication of infection. Nephrology consultation pending. (3) Hypernatremia Status: Acute Discussed With: Health Care Proxy Problem Specific Plan: Consult Specialist, Monitor Clinically, Repeat Labs (4) Dehydration Status: Acute Response to Treatment: Progressing Discussed With: Health Care Proxy Problem Specific Plan: Monitor Clinically, Repeat Labs, Repeat Tests (5) Proteinuria Status: Acute Discussed With: Health Care Proxy Problem Specific Plan: Consult Specialist, Repeat Labs (6) Cerebral palsy Status: Chronic Discussed With: Health Care Proxy Problem Specific Plan: Monitor Clinically (7) GERD (gastroesophageal reflux disease) Status: Chronic Discussed With: Health Care Proxy Problem Specific Plan: Monitor Clinically (8) HTN (hypertension) Status: Chronic Discussed With: Health Care Proxy Problem Specific Plan: Monitor Clinically (9) Seizure Status: Chronic Discussed With: Health Care Proxy Problem Specific Plan: Monitor Clinically Plan/VTE VTE Prophylaxis Ordered?: Yes (Heparin) Plan IVF: Continue Diet: Continue Current Diagnostics: Repeat Labs in AM Anticipated Discharge: Home With Services VS, I&O, 24HRafia Vital Signs/I&O Vital Signs Date Time Temp Pulse Resp B/P Pulse Ox O2 Delivery O2 Flow Rate FiO2 01/02/17 10:00 96.9 93 18 110/58 96 Room Air I&O- Last 24 Hours up to 6 AM 01/02/17 05:59 Intake Total 400 ml Output Total 0 ml Balance 400 ml Laboratory Data 24H LABS Laboratory Tests 2 01/01/17 16:33: Blood Urea Nitrogen 44#H, Creatinine 2.61#H, Sodium Level 154H, Potassium Level 3.1L, Chloride Level 113H, Carbon Dioxide Level 30, Calcium Level 8.2L, Aspartate Amino Transf (AST/SGOT) 20, Alanine Aminotransferase (ALT/SGPT) 28, Alkaline Phosphatase 153H, Total Bilirubin 0.2, Total Protein 7.8, Albumin 3.8, Albumin/Globulin Ratio 0.95L, Anion Gap 11, Glomerular Filtration Rate 30.5L 01/01/17 17:10: Urine Amorphous Sediment , Urine Appearance HAZY, Urine Color DELMIS, Urine pH 5.0, Urine Specific Walls 1.025, Urine Protein 2+H, Urine Glucose (UA) 1+H, Urine Ketones 1+H, Urine Urobilinogen 2.0H, Urine Bilirubin 1+H, Urine Leukocyte Esterase NEGATIVE, Urine Bacteria (Auto) NEGATIVE, Urine Blood NEGATIVE, Urine Calcium Carbonate Cryst(Auto) , Urine Calcium Oxalate Cryst ( Auto) , Urine Calcium Phosphate Naina (Auto) , Urine Cellular Casts , Urine Cystine Crystals , Urine Granular Casts (Auto) , Urine Hyaline Casts (Auto) 0, Urine Leucine Crystals , Urine Mucus (Auto) SMALL, Urine Nitrite NEGATIVE, Urine Oval Fat Bodies (Auto) , Urine RBC (Auto) 0, Urine Renal Epithelial Cells , Urine Sperm (Auto) , Urine Squamous Epithelial Cells 0, Urine Transitional Epithelial Cells , Urine Trichomonas (Auto) , Urine Triple Phosphate Cryst (Auto ) , Urine Tyrosine Crystals , Urine Uric Acid Crystals (Auto) , Urine WBC (Auto ) 1, Urine Waxy Casts (Auto) , Urine Yeast-Like Cells (Auto) 01/01/17 22:21: Blood Urea Nitrogen 42H, Creatinine 2.79H, Sodium Level 158H, Potassium Level 3.1L, Chloride Level 119H, Carbon Dioxide Level 29, Calcium Level 7.4L, Anion Gap 10, Glomerular Filtration Rate 28.2L, Magnesium Level 2.1 01/02/17 05:45: Blood Urea Nitrogen 40H, Creatinine 2.80H, Sodium Level 156H, Potassium Level 3.1L, Chloride Level 121H, Carbon Dioxide Level 26, Calcium Level 7.4L, Aspartate Amino Transf (AST/SGOT) 19, Alanine Aminotransferase (ALT/SGPT) 23, Alkaline Phosphatase 110, Total Bilirubin 0.2, Total Protein 6.0#L, Albumin 2.8# L, Albumin/Globulin Ratio 0.88L, Anion Gap 9, Glomerular Filtration Rate 28.1L, White Blood Count 5.5, Red Blood Count 3.57L, Hemoglobin 10.3#L, Hematocrit 32.2L, Mean Corpuscular Volume 90.0, Mean Corpuscular Hemoglobin 28.9, Mean Corpuscular Hemoglobin Concent 32.1, Red Cell Distribution Width 13.8, Platelet Count 180, Neutrophils (%) (Auto) 77.4H, Lymphocytes (%) (Auto) 13.5L, Monocytes (%) (Auto) 6.5H, Eosinophils (%) (Auto) 0.4, Basophils (%) (Auto) 0.4 , Neutrophils # (Auto) 4.3, Lymphocytes # (Auto) 0.8L, Monocytes # (Auto) 0.4, Eosinophils # (Auto) 0.0, Basophils # (Auto) 0.0, Large Unclassified Cells # 0.1 , Large Unclassified Cells % 1.9 CBC/BMP Laboratory Tests 01/01/17 16:33 Calcium Level 8.2 L, Aspartate Amino Transf (AST/SGOT) 20, Alanine Aminotransferase (ALT/SGPT) 28, Alkaline Phosphatase 153 H, Total Bilirubin 0.2 , Total Protein 7.8, Albumin 3.8, Red Blood Count 4.39, Mean Corpuscular Volume 89.0, Mean Corpuscular Hemoglobin 29.3, Mean Corpuscular Hemoglobin Concent 32.9 , Red Cell Distribution Width 13.7 01/01/17 22:21 Calcium Level 7.4 L 01/02/17 05:45 Calcium Level 7.4 L, Aspartate Amino Transf (AST/SGOT) 19, Alanine Aminotransferase (ALT/SGPT) 23, Alkaline Phosphatase 110, Total Bilirubin 0.2, Total Protein 6.0 #L, Albumin 2.8 #L, Red Blood Count 3.57 L, Mean Corpuscular Volume 90.0, Mean Corpuscular Hemoglobin 28.9, Mean Corpuscular Hemoglobin Concent 32.1, Red Cell Distribution Width 13.8, Neutrophils (%) (Auto) 77.4 H, Lymphocytes (%) (Auto) 13.5 L, Monocytes (%) (Auto) 6.5 H, Eosinophils (%) (Auto ) 0.4, Basophils (%) (Auto) 0.4, Neutrophils # (Auto) 4.3, Lymphocytes # (Auto) 0.8 L, Monocytes # (Auto) 0.4, Eosinophils # (Auto) 0.0, Basophils # (Auto) 0.0 VICTOR HUGO HA MD Jan 02, 2017 14:17
[2017-01-02] MEDS ORDERED: D5W 1,000 ML IV SCH (14:45)
--- NOTE | 2017-01-02 19:06 | REP ---
Urinary tract sonography: History: Acute renal failure. Comparison CT study of the abdomen is from January 01, 2017. Findings: Scanning at the level of the urinary bladder shows smooth bladder mcgill, no abnormality. Renal cortical echogenicity pattern is increased consistent with medical renal disease. There is no evidence of hydronephrosis on either side. There is a 1.0 cm cyst at the mid position of the right kidney and a 0.8 cm cyst is seen in the left kidney. Left renal dimensions are 10.2 x 5.1 x 4.9 cm. Right kidney measures 10.2 x 5.1 x 4.2 cm. Impression: Increased renal cortical echogenicity pattern consistent with medical renal disease. There is one small cyst in each kidney. No other significant abnormality. Signed by Dat Mcgrath MD 01/02/2017 08:00 P
[2017-01-02] MEDS: KCL 20MEQ IN D5W 1000ML 1,000 ML IV SCH (20:23)
--- NOTE | 2017-01-02 21:02 | CR ---
DATE OF CONSULTATION: 01/02/2017 REQUESTING PHYSICIAN: Dr. Gordon Dow CONSULTING PHYSICIAN: Dr. Fong REASON FOR CONSULTATION: Management of acute kidney injury and multiple electrolyte abnormalities. CHIEF COMPLAINT: Patient presented to emergency room yesterday with generalized weakness and dehydration. Note history was obtained from patient's chart and from patient's parents at the bedside. He is unable to provide any reliable history. HISTORY OF PRESENT ILLNESS: Mr. Waqas Diaz is a 31-year-old male with past medical history of cerebral palsy who is nonverbal at baseline. No significant past medical history of renal disease, except history of kidney stones. He presented to the emergency room yesterday with nausea, nonbilious and nonbloody vomiting for about 2-3 days. As reported by parents, patient was having an upper respiratory infection about 2 weeks before presentation to emergency room. He was given medications for that, but later on he started having nausea and vomiting. He did not have a good appetite. He was not eating much. Parents also reported decreased amount of urination on arrival at the emergency room (ER). On further evaluation in the emergency room, patient was found to be dehydrated with a low blood pressure. His systolic blood pressures were in 80s. Patient was resuscitated with 2 liters normal saline. He was found to have a creatinine of 2.6 on admission. Baseline creatinine is less than 1. His sodium was 154. Patient was started on intravenous (IV) D5 normal saline after initial resuscitation, and nephrology service was called for further management of acute renal failure, when his creatinine kept on going up to 2.8 today. PAST MEDICAL HISTORY: 1. Patient has past medical history of cerebral palsy, nonverbal. 2. History of epilepsy. 3. Gastroesophageal reflux disease. 4. Hypertension. 5. History of kidney stones in the past. PAST SURGICAL HISTORY: Status post dental extractions. ALLERGIES: Patient is allergic to TYLENOL. CURRENT MEDICATIONS: - Patient was started on D5W at 60 mL an hour today morning. - He is also on albuterol three times a day. - He is on Pulmicort inhalation four times a day - Mucinex 600 mg as needed - heparin subcutaneous - Zofran 4 mg IV every 6 hours as needed nausea or vomiting - Protonix 40 mg IV every 24 hours - phenobarbital 30 mg by mouth twice a day - Fleet enema - Topamax 200 mg by mouth twice a day. HOME MEDICATIONS: Patient's home medications were also reviewed by me. Apart from the inpatient medication, that also includes: - felbamate 900 mg by mouth twice a day - ibuprofen 400 mg every 4 hours as needed pain - lisinopril 5 mg by mouth at bedtime - ranitidine one tablet twice a day FAMILY HISTORY: No significant family history of end-stage renal disease requiring hemodialysis. SOCIAL HISTORY: Patient lives at home. Parents are the primary caregivers. There is no history of drug abuse. REVIEW OF SYSTEMS: I was unable to do review of systems in this patient, who has history of cerebral palsy, whose is baseline nonverbal, does not communicate, does not follow commands, but otherwise he was awake. PHYSICAL EXAMINATION: GENERAL: Patient is awake, nonverbal, not in apparent distress at this time. VITAL SIGNS: Temperature was 97.3 degrees Fahrenheit, blood pressure is 104/66, pulse is 85, respiratory rate 18, saturating 97% on room air. Intake and output: Patient's urine output recorded is 800 mL so far since overnight. HEAD AND NECK: Pupils equally round and reactive to light. Mucous membranes are moist. Neck is supple. There is no jugular venous distention (JVD). CARDIOVASCULAR: S1, S2, regular rate. No murmur, rub, or gallop. RESPIRATORY: Chest is clear to auscultation bilaterally. Bilateral equal air entry. ABDOMEN: Soft. Positive bowel sounds. Nontender. No ascites. No organomegaly. EXTREMITIES: No clubbing or cyanosis. No edema. CENTRAL NERVOUS SYSTEM: Patient moves all extremities, but he does not follow commands. He has a history of cerebral palsy. PSYCHIATRIC: Patient is not agitated at this time. SKIN: No rashes or ulcers. LABORATORY REVIEW: CBC showed a WBC 5.5, hemoglobin 10.3, platelets of 180. Urinalysis showed it was hazy with 2+ protein, 1+ glucose 1+ ketones. BMP showed sodium 156, potassium 3.1, chloride 121, bicarbonate 26, BUN 40, creatinine is 2.8. It is worse than yesterday; it was 2.6 yesterday. Glucose is 170, osmolarity is 329, calcium is 7.4, albumin is 2.8. IMAGING: A renal ultrasound done today showed increased renal cortical echogenicity consistent with medical renal disease. There was one small cyst in each kidney. ASSESSMENT: A 31-year-old male with past medical history of cerebral palsy, epilepsy, gastroesophageal reflux disease, hypertension, who presented with dehydration secondary to nausea, vomiting. Nephrology service following the patient for management of acute renal failure and electrolyte abnormalities. PLAN: 1. Acute renal failure, most likely secondary to a combination of decreased oral intake, volume depletion, and use of angiotensin-converting enzyme (JOCY) inhibitors at home. JOCY inhibitors have already been held. Patient is being resuscitated with IV D5W. His blood pressure is acceptable at this time. Renal function is expected to improve over the next few days. 2. Hypernatremia. Hypernatremia is secondary to nausea, vomiting, and inability of the patient to ask for water and inability to drink water, because he is on pureed diet. Patient has been started on IV D5W. I am going to change the D5W to D5W plus 20 mEq potassium chloride at 75 mL an hour. Patient has almost 3 liter water deficit. Next basic metabolic panel (BMP) will be done tomorrow. Hopefully sodium level is expected to improve in the next 48 hours. 3. Hypokalemia. Hypokalemia secondary to volume depletion, nausea, and vomiting. Patient has already been given 40 mEq of potassium by primary team. I have added the potassium to IV fluids as well. 4. Cerebral palsy and inability to drink water. I instructed patient's parents to give him thickened liquids with his diet, because patient is unable to ask for water. 5. Hypertension. Patient was actually hypotensive on arrival. His blood pressure is acceptable at this time. No need of antihypertensive medications at this time. 6. Constipation. The patient is being given Fleet enemas for his constipation. I would recommend avoiding Fleet enemas because of high phosphorus load in this with acute renal failure. Patient can be given soaps as enema as needed for constipation. 7. Seizure disorder. Continue Topamax. At this time, rest of management is as per primary team. Thank you for involving us in the care of this patient. We shall be happy to follow the patient along with you tomorrow morning.
[2017-01-03 02:00] VITALS: BP 124/64
[2017-01-03] MEDS: KCL 20MEQ IN D5W 1000ML 1,000 ML IV SCH ×2 (05:59→21:30)
[2017-01-03] MEDS: HEPARIN SOD (PORCINE) 5000 UNITS/ML VIAL SC SCH ×3 (05:59→21:31)
[2017-01-03 06:00] VITALS: BP 124/64
[2017-01-03 06:19] LABS: BASO % 0.6 % (0.0-1.0); EOS # 0.1 K/mm3 (0.0-0.50); EOS % 2.2 % (0.0-3.0); LARGE UNSTAINED CELL # 0.1 K/mm3 (0.0-0.4); LARGE UNSTAINED CELL % 1.9 % (0.0-4.0); LYMPH # 1.2 K/mm3 (1.5-4.5); LYMPH % 26.6 % (24.0-44.0); MEAN CORPUSCULAR HEMOGLOBIN 28.7 pg (27.0-33.0); MEAN CORPUSCULAR HGB CONC 31.1 g/dl (32.0-36.5); MEAN CORPUSCULAR VOLUME 92.3 fl (80.0-96.0); MONO # 0.3 K/mm3 (0.0-0.8); MONO % 6.3 % (0.0-5.0); NEUTROPHILS # 2.7 K/mm3 (1.8-7.7); NEUTROPHILS % 62.5 % (36.0-66.0); PLATELET COUNT, AUTOMATED 174 k/mm3 (150-450); RED CELL DISTRIBUTION WIDTH 13.6 % (11.5-14.5); WHITE BLOOD COUNT 4.4 K/mm3 (4.0-10.0)
[2017-01-03 06:40] LABS: ALBUMIN 2.7 GM/DL (3.2-5.2); CALCIUM LEVEL 7.8 MG/DL (8.5-10.1); CREATININE FOR GFR 2.73 MG/DL (0.70-1.30); GLOMERULAR FILTRATION RATE 28.9 (>60); PHOSPHORUS LEVEL 3.5 MG/DL (2.5-4.9); POTASSIUM SERUM 3.5 MEQ/L (3.5-5.1)
[2017-01-03] MEDS: PANTOPRAZOLE 40MG INJ (PROTONIX) (C9113) IV SCH (08:25)
[2017-01-03] MEDS: TOPIRAMATE (TopAMAX) 100 MG TAB PO SCH ×2 (08:25→21:30)
[2017-01-03] MEDS: PHENobarbital 30 MG TAB PO SCH ×2 (08:25→21:30)
[2017-01-03] MEDS: FELBAMATE 600 MG PO SCH ×2 (08:26→21:30)
[2017-01-03] MEDS ORDERED: FLEET ENEMA PR PRN (09:00)
[2017-01-03 10:00] VITALS: BP 121/70
--- NOTE | 2017-01-03 10:50 | IPN ---
DATE: 01/03/2017 SUBJECTIVE: Patient was seen and examined at the bedside today in the morning. There is no apparent distress. Patient is nonverbal because of cerebral palsy. Patient's mother was present at the bedside. He was still reported to be n.p.o. He was started on IV D5 plus KCL yesterday. His potassium is slightly better to 154 today. Renal function is also starting to improve. REVIEW OF SYSTEMS: I was unable to do review of systems in this patient who is nonverbal and he cannot follow commands. OBJECTIVE: Vital signs: Temperature is 96.6 degrees Fahrenheit, blood pressure is 124/64, pulse is 83, respiratory rate of 18, saturating 98% on room air. Intake and output: Patient's total fluid intake is 450 mL so far overnight and output is not recorded. Patient has incontinent voids. PHYSICAL EXAMINATION: General: Patient is awake and alert. He is nonverbal, in no apparent distress. Head and neck exam: Extraocular muscles intact. Pupils equal, round, reactive to light. Mucous membranes are moist. Neck is supple. There is no jugular venous distention (JVD). Cardiovascular: S1, S2. Regular rate. No murmur, rub or gallop. Respiratory: Chest is clear to auscultation bilaterally. Bilateral equal air entry. No rales or rhonchi. Abdomen is soft, positive bowel sounds, nontender, no ascites, no organomegaly. Extremities: No clubbing or cyanosis. No edema. Central nervous system: Patient moves all extremities but he otherwise has cerebral palsy. He does not follow commands. He does not communicate. Skin: No rashes or ulcers at this time. LAB REVIEW: CBC showed WBC 4.4, hemoglobin 10.4, platelets 174. BMP showed sodium 154 which is better than yesterday, it was 156 yesterday. Potassium 3.5, chloride 121, bicarbonate 24, BUN 31, creatinine 2.7. It was 2.8 yesterday. Calcium 7.8, phosphorus 3.5, albumin 2.7. CURRENT MEDICATIONS: Patient's medications were all reviewed by me. His IV fluid continues to be D5W plus 20 mEq of KCL at 75 mL/hr. ASSESSMENT: 31-year-old male with past medical history of cerebral palsy, epilepsy, gastroesophageal reflux disease, hypertension, who baseline is on a pureed diet and thickened liquids. He presented to the emergency room with nausea, vomiting, diarrhea, dehydration. Nephrology service following the patient for management of acute renal failure and electrolyte abnormalities. PLAN: 1. Acute renal failure, most likely secondary to a combination of volume depletion, hypotension, decreased oral intake and use of angiotensin-converting enzyme (JOCY) inhibitors at home. JOCY inhibitors have been held. Continue the IV fluid hydration. Creatinine has plateaued. I am expecting an improvement in the renal function over the next 2-3 days. 2. Hypernatremia. Hypernatremia is secondary to volume depletion, decreased oral intake. Patient was been started on IV D5W yesterday. Continue the IV fluids at this time. He is almost 3 liter water deficit. I am going to increase the IV fluid rate for the next 24 houres. Patient was n.p.o. He will be starting the feeds today and I have encouraged the parents to start giving him thickened liquids orally as well. 3. Hypokalemia. Patient's potassium is better today. He continues to get IV potassium in the IV fluids that he is receiving. 4. Hypertension. Patient came to the emergency room volume depleted and hypotensive. His blood pressure is acceptable at this time. No need of antihypertensive medications at this time. 5. Constipation. Patient can get soap suds enema or tap water enemas for constipation. He should not get Fleet enemas because of acute renal failure. 6. Cerebral palsy and inability to drink water. Patient's family members and nursing were instructed to give thicker liquids to the patient three times a day with meals. Plan of care was discussed with the family members at the bedside and with the hospitalist team, Dr. Dow.
--- NOTE | 2017-01-03 11:13 | IPNPDOC ---
Subjective General Date Seen The patient was seen on 01/03/17. Subjective Chief Complaint/HPI The patient is a 31-year-old male admitted with a reason for visit of Dehydration;Renal Failure. General: Reports: ROS Unobtainable Objective Physical Examination General Exam: Positive: Alert, No Acute Distress ENT Exam: Positive: Atraumatic Neck Exam: Positive: Supple Chest Exam: Positive: Clear to auscultation, Normal air movement Heart Exam: Positive: Rate Normal, Regular Rhythm Abdomen Exam: Positive: Normal bowel sounds, Soft, Negative: Tenderness Assessment /Plan Problems Problems: (1) Constipation Status: Acute Response to Treatment: Progressing Discussed With: Health Care Proxy Problem Specific Plan: Monitor Clinically Problem Text: Enemas PRN. (2) MARLON (acute kidney injury) Status: Acute Discussed With: [employer], Health Care Proxy Problem Specific Plan: Consult Specialist, Repeat Labs Problem Text: UA noted with 2+ proteinuria. No indication of infection. Some improvement today. Continue IV fluids. Renal sono noted. Likely secondary to dehydration. Nephrology consultation appreciated. (3) Hypernatremia Status: Acute Response to Treatment: Improving Discussed With: [employer], Health Care Proxy Problem Specific Plan: Consult Specialist, Monitor Clinically, Repeat Labs Problem Text: Secondary to dehydration. Continue IV fluids. Nephrology consultation appreciated. (4) Dehydration Status: Acute Response to Treatment: Progressing Discussed With: Health Care Proxy Problem Specific Plan: Monitor Clinically, Repeat Labs, Repeat Tests Problem Text: As per above, continue with IV fluids. Importance of PO fluid intake discussed with mother at bedside. (5) Proteinuria Status: Acute Discussed With: [employer], Health Care Proxy Problem Specific Plan: Consult Specialist, Repeat Labs (6) Cerebral palsy Status: Chronic Discussed With: Health Care Proxy Problem Specific Plan: Monitor Clinically (7) GERD (gastroesophageal reflux disease) Status: Chronic Discussed With: Health Care Proxy Problem Specific Plan: Monitor Clinically (8) HTN (hypertension) Status: Chronic Response to Treatment: Stable Discussed With: Health Care Proxy Problem Specific Plan: Monitor Clinically Problem Text: As per medical history. Not on medications. (9) Seizure Status: Chronic Discussed With: Health Care Proxy Problem Specific Plan: Monitor Clinically Problem Text: Continue with home regimen, phenobarbital, topamax and felbamate. Plan/VTE VTE Prophylaxis Ordered?: Yes (Heparin) Plan IVF: Continue Diet: Advance (pureed) Diagnostics: Repeat Labs in AM Anticipated Discharge: Home, Home With Services VS, I&O, 24H, [facility] Vital Signs/I&O Vital Signs Date Time Temp Pulse Resp B/P Pulse Ox O2 Delivery O2 Flow Rate FiO2 01/03/17 10:00 97.9 104 18 121/70 97 Room Air I&O- Last 24 Hours up to 6 AM 01/03/17 06:00 Intake Total 1480 ml Output Total 800 ml Balance 680 ml Laboratory Data 24H LABS Laboratory Tests 2 01/02/17 14:43: Osmolality 329H 01/02/17 15:29: Urine Random Osmolality 432L 01/03/17 05:58: Albumin 2.7L, Blood Urea Nitrogen 31H, Creatinine 2.73H, Sodium Level 154H, Potassium Level 3.5, Chloride Level 121H, Carbon Dioxide Level 24, Anion Gap 9, White Blood Count 4.4, Red Blood Count 3.62L, Hemoglobin 10.4L, Hematocrit 33.5L , Mean Corpuscular Volume 92.3, Mean Corpuscular Hemoglobin 28.7, Mean Corpuscular Hemoglobin Concent 31.1L, Red Cell Distribution Width 13.6, Platelet Count 174, Neutrophils (%) (Auto) 62.5, Lymphocytes (%) (Auto) 26.6, Monocytes (%) (Auto) 6.3H, Eosinophils (%) (Auto) 2.2, Basophils (%) (Auto) 0.6 , Neutrophils # (Auto) 2.7, Lymphocytes # (Auto) 1.2L, Monocytes # (Auto) 0.3, Eosinophils # (Auto) 0.1, Basophils # (Auto) 0.0, Calcium Level 7.8L, Glomerular Filtration Rate 28.9L, Large Unclassified Cells # 0.1, Large Unclassified Cells % 1.9, Phosphorus Level 3.5 CBC/BMP Laboratory Tests 01/03/17 05:58 Anion Gap 9, Red Blood Count 3.62 L, Mean Corpuscular Volume 92.3, Mean Corpuscular Hemoglobin 28.7, Mean Corpuscular Hemoglobin Concent 31.1 L, Red Cell Distribution Width 13.6, Neutrophils (%) (Auto) 62.5, Lymphocytes (%) (Auto ) 26.6, Monocytes (%) (Auto) 6.3 H, Eosinophils (%) (Auto) 2.2, Basophils (%) ( Auto) 0.6, Neutrophils # (Auto) 2.7, Lymphocytes # (Auto) 1.2 L, Monocytes # ( Auto) 0.3, Eosinophils # (Auto) 0.1, Basophils # (Auto) 0.0 VICTOR HUGO HA MD Jan 03, 2017 11:13
[2017-01-03 14:00] VITALS: BP 108/67
[2017-01-03 18:00] VITALS: BP 135/82
[2017-01-03 22:00] VITALS: BP 112/65
--- NOTE | 2017-01-03 22:51 | EDDOCDS ---
Nurse's Notes [facility] Name: Waqas Diaz Age: 31 yrs Sex: Male : 1985 Arrival Date: 01/01/2017 Time: 15:31 Bed I3 / M3 Private MD: Pat Marks Diagnosis: Dehydration;Acute kidney failure Presentation: 01/01 15:38 Presenting complaint: Mother states: was at [facility] and was told that he was hs1 dehydrated. Patient was seen here Saturday and given fluids and he is back here for same. Presenting complaint: patient will not eat per family. Ongoing issues of not wanting to eat. The last date and time the patient was known to be well was was at 15:39 on December 14, 2016. No acute neurological deficit is noted. Pre-hospital glucose is not applicable to this patient. Adult Sepsis Screening: The patient does not have new or worsening altered mentation. Patient's respiratory rate is less than 22. Systolic blood pressure is greater than 100. Patient has a qSOFA score of 0- Negative Sepsis Screen. Suicide/Homicide risk assessment- Unable to assess, due to patient's chronic mental disability. 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 Transition of care: Patient was received from [facility]. 15:38 Acuity: LUIS Level 3 hs1 15:38 Method Of Arrival: Walkin/Carried/Asstd hs1 Triage Assessment: 15:42 The onset of the patients symptoms was more than three hours ago. General: Appears in hs1 no apparent distress. Pain: Unable to use pain scale. Does not appear to understand pain scale. HIV screening NA for this visit Offered previously. Neurological: Level of Consciousness is awake, mother states not drooling like normal. Patient alert however lethargic at times. . Reports no additional symptoms. Historical: - Allergies: tylenolmother states interacts with other medication; - Home Meds: 1. albuterol sulfate 2.5 mg /3 mL (0.083 %) Inhl nebu 3 mL 2. felbamate 600 mg oral tab 2.5 tabs bid 3. fleets enema Unknown every 3 days 4. lisinopril 5 mg Oral tab 1 tab once daily 5. phenobarbital 32.4 mg Oral tab 1 tab 2 times per day 6. Pulmicort 0.25 mg/2 mL Inhl nbsp 7. ranitidine HCl 150 mg Oral cap 1 cap 2 times per day 8. Tab-A-Sandy oral tab daily 9. topiramate 100 mg oral tab 2 tabs 2 times per day 10. Mucinex DM 30-600 mg oral Tb12 1 tab as needed 11. ibuprofen 200 mg Oral tab 2 tabs as needed - PMHx: Cerebral Palsy; Epilepsy; GERD; Hypertension; - PSHx: Heel Cord Lengthening; Left Shoulder Reduction; - Social history: Smoking status: Patient states was never smoker of tobacco. No barriers to communication noted, The patient speaks fluent Telugu, Speaks appropriately for age. - Family history: Not pertinent. - : The pt / caregiver states he / she is not on anticoagulants. Home medication list is obtained from family members, the caregiver. - Exposure Risk Screening:: None identified. Screenin:52 Screening information is obtained from the parent. Fall risk: At risk due to mcp immobility. Assistance ADL's: Requires assistance with meal preparation, this assistance is provided by family members, bathing, assistance is provided by family members, dressing, assistance is provided by family members, toileting, assistance is provided by family members, ambulation, assistance is provided by family members, housework, assistance is provided by family members, medication administration, assistance is provided by family members. Abuse/DV Screen: The patient / caregiver reports he/she is: not in a situation that causes fear, pain or injury. Nutritional screening: No deficits noted. home support is adequate. 21:42 Advance Directives: There is no active DNR order. mlc Assessment: 16:49 General: Appears in no apparent distress, Behavior is cooperative. Pain: Unable to use [facility] pain scale. Does not appear to understand pain scale. Neurological: No deficits noted. Respiratory: Airway is patent Respiratory effort is even, unlabored. GI: Parent/caregiver reports the patient having diarrhea, vomiting. Derm: Skin is pale. 17:13 General: IV patent and infusing well--site without any signs of infiltration. No mcp vomiting noted. 19:45 Reassessment: Patient appears in no apparent distress at this time. Patient states cf2 feeling better. Patient states symptoms have improved. Adult Sepsis Screening: The patient does not have new or worsening altered mentation. Patient's respiratory rate is less than 22. Systolic blood pressure is greater than 100. Patient has a qSOFA score of 0- Negative Sepsis Screen. 19:45 General: Patient received with parents at bedside. No s/s distress, patient playing cf2 with toy. . 21:40 General: Appears in no apparent distress, comfortable, Behavior is cooperative. mlc Respiratory: Airway is patent Respiratory effort is even, unlabored, Respiratory pattern is regular. Derm: Skin is pale. Vital Signs: 15:34 BP 87 / 56; Pulse 98; Resp 18; Temp 97.0(T); Pulse Ox 96% on R/A; Weight 49.9 kg; dem1 Height 5 ft. 2 in. (157.48 cm); 16:16 BP 90 / 68 RA Sitting (man/pedi); dem1 19:46 BP 98 / 55; Pulse 97; Resp 18; Temp 97.2; Pulse Ox 96% ; ajs 21:37 BP 104 / 55; Pulse 105; Resp 18; Temp 96.2; Pulse Ox 98% ; ajs 15:34 Body Mass Index 20.12 (49.90 kg, 157.48 cm) [facility] Vitals: 15:34 Log In Time: January 01, 2017 at 15:30. RN notified that patient meets Red Flag dem1 criteria. ED Course: 15:33 Patient visited by Vinayak Deal. dem1 15:33 Patient moved to Waiting dem1 15:34 [facility] is Private Physician. dem1 15:34 Patient visited by Vinayak Deal. dem1 15:34 Patient moved to Pre RCE dem1 15:40 Triage Initiated hs1 16:09 Fabián Lyon FNP is [facility]. ke 16:09 Patient visited by Fabián Lyon FNP. ke 16:09 Patient visited by Fabián Lyon FNP. ke 16:09 Patient moved to Triage 3 dem1 16:16 Patient visited by Vinayak Deal. dem1 16:20 Patient moved to I3 / M3 dem1 16:48 Patient visited by Fabián Lyon FNP. ke 16:51 Inserted saline lock: 20 gauge in left forearm and blood collected. The patient mcp tolerated the procedure well. Labs drawn. (by ED staff). Sent per order to lab. 16:53 The patient / caregiver is instructed regarding the plan of care and ED course. Patient mcp has correct armband on for positive identification. Placed in gown. Bed in low position. Call light in reach. Side rails up X2. Adult w/ patient. 16:54 Patient visited by Korina Gibbs RN. mcp 17:11 UA Sent. mcp 17:11 Quick cath inserted 16 Fr. Specimen obtained. Returned vladislav urine. Patient tolerated mcp well. 17:12 Patient visited by Korina Gibbs RN. mcp 17:14 Patient visited by Korina Gibbs RN. [facility] 17:39 Patient visited by Fabián Lyon FNP. ke 17:51 Cosmo Hines is Hospitalizing Provider. ke 18:07 Patient has correct armband on for positive identification. Placed in gown. Bed in low jam1 position. Call light in reach. Side rails up X2. Adult w/ patient. Door closed. 18:09 Patient name changed from Waqas\S\\S\Emily\S\ to Waqas\S\ \S\Emily. EDMS 18:11 [facility] Payment Agreement was scanned into [employer] and attached to record. ks16 20:21 Odalys Doherty,RN is Primary Nurse. cf2 20:21 Patient visited by Odalys Doherty RN. cf2 21:02 CT ABD & PELVIS W/O CONTRAST Returned. EDMS 21:38 Patient visited by Mirela Ortez. ajs 21:40 No procedures done that require assistance. mlc 21:46 Patient visited by Odalys Doherty,KATHE. cf2 01/02 11:32 T-Sheet-- Draft Copy was scanned into [employer] and attached to record. gb Administered Medications: 01/01 16:49 Drug: NS 0.9% 1000 ml [sodium chloride 0.9 % intravenous solution] Route: IV; Rate: mcp bolus; Site: left wrist; 18:37 Drug: NS 0.9% 1000 ml [sodium chloride 0.9 % intravenous solution] Route: IV; Rate: mcp bolus; Site: left wrist; Order Results: Lab Order: CBC; SPEC'M 01/01/17 16:33 Test: WHITE BLOOD COUNT; Value: 13.0; Range: 4.0-10.0; Abnormal: Above high normal; Units: K/mm3; Status: F Test: RED BLOOD COUNT; Value: 4.39; Range: 4.30-6.10; Units: M/mm3; Status: F Test: HEMOGLOBIN; Value: 12.8; Range: 14.0-18.0; Abnormal: Below low normal; Units: g/dl; Status: F Test: HEMATOCRIT; Value: 39.1; Range: 42.0-52.0; Abnormal: Below low normal; Units: %; Status: F Test: MEAN CORPUSCULAR VOLUME; Value: 89.0; Range: 80.0-96.0; Units: fl; Status: F Test: MEAN CORPUSCULAR HEMOGLOBIN; Value: 29.3; Range: 27.0-33.0; Units: pg; Status: F Test: MEAN CORPUSCULAR HGB CONC; Value: 32.9; Range: 32.0-36.5; Units: g/dl; Status: F Test: RED CELL DISTRIBUTION WIDTH; Value: 13.7; Range: 11.5-14.5; Units: %; Status: F Test: PLATELET COUNT, AUTOMATED; Value: 254; Range: 150-450; Units: k/mm3; Status: F Lab Order: UA; SPEC'M 01/01/17 17:10 Test: APPEARANCE, URINE; Value: HAZY; Range: CLEAR; Status: F Test: COLOR, URINE; Value: VLADISLAV; Range: YELLOW; Status: F Test: PH,URINE; Value: 5.0; Range: 5.0-9.0; Units: UNITS; Status: F Test: SPECIFIC GRAVITY URINE AUTO; Value: 1.025; Range: 1.002-1.035; Status: F Test: PROTEIN, URINE AUTO; Value: 2+; Range: NEGATIVE; Abnormal: Above high normal; Units: mg/dL; Status: F Test: GLUCOSE, URINE (UA) AUTO; Value: 1+; Range: NEGATIVE; Abnormal: Above high normal; Units: mg/dL; Status: F Test: KETONE, URINE AUTO; Value: 1+; Range: NEGATIVE; Abnormal: Above high normal; Units: mg/dL; Status: F Test: UROBILINOGEN, URINE AUTO; Value: 2.0; Range: 0.0-2.0; Abnormal: Above high normal; Units: mg/dL; Status: F Test: BILIRUBIN, URINE AUTO; Value: 1+; Range: NEGATIVE; Abnormal: Above high normal; Status: F Test: NITRITE, URINE AUTO; Value: NEGATIVE; Range: NEGATIVE; Status: F Test: LEUKOCYTE ESTERASE, URINE AUTO; Value: NEGATIVE; Range: NEGATIVE; Status: F Test: BLOOD, URINE BLOOD; Value: NEGATIVE; Range: NEGATIVE; Status: F Test: WBC, URINE AUTO; Value: 1; Range: 0-3; Units: /HPF; Status: F Test: RBC, URINE AUTO; Value: 0; Range: 0-3; Units: /HPF; Status: F Test: BACTERIA, URINE AUTO; Value: NEGATIVE; Range: NEGATIVE; Status: F Test: SQUAMOUS EPITHELIAL CELL UR AU; Value: 0; Range: 0-6; Units: /HPF; Status: F Test: MUCUS, URINE; Value: SMALL; Range: NEGATIVE; Status: F Test: HYALINE CAST, URINE AUTO; Value: 0; Range: 0-1; Units: /LPF; Status: F Lab Order: COMPLETE COMPHRENSIVE METABOLI; SPEC'M 01/01/17 16:33 Test: GLUCOSE, FASTING; Value: 114; Range: 70-105; Abnormal: Above high normal; Units: MG/DL; Status: F Test: BLOOD UREA NITROGEN; Value: 44; Range: 7-18; Abnormal: High; Units: MG/DL; Status: F Test: CREATININE FOR GFR; Value: 2.61; Range: 0.70-1.30; Abnormal: High; Units: MG/DL; Status: F Test: GLOMERULAR FILTRATION RATE; Value: 30.5; Range: >60; Abnormal: Below low normal; Status: F Test: SODIUM LEVEL; Value: 154; Range: 136-145; Abnormal: Above high normal; Units: MEQ/L; Status: F Test: POTASSIUM SERUM; Value: 3.1; Range: 3.5-5.1; Abnormal: Below low normal; Units: MEQ/L; Status: F Test: CHLORIDE LEVEL; Value: 113; Range: 98-107; Abnormal: Above high normal; Units: MEQ/L; Status: F Test: CARBON DIOXIDE LEVEL; Value: 30; Range: 21-32; Units: MEQ/L; Status: F Test: ANION GAP; Value: 11; Range: 8-16; Units: MEQ/L; Status: F Test: CALCIUM LEVEL; Value: 8.2; Range: 8.5-10.1; Abnormal: Below low normal; Units: MG/DL; Status: F Test: AST/SGOT; Value: 20; Range: 15-37; Units: U/L; Status: F Test: ALT/SGPT; Value: 28; Range: 12-78; Units: U/L; Status: F Test: ALKALINE PHOSPHATASE; Value: 153; Range: 45-117; Abnormal: Above high normal; Units: U/L; Status: F Test: BILIRUBIN,TOTAL; Value: 0.2; Range: 0.2-1.0; Units: MG/DL; Status: F Test: TOTAL PROTEIN; Value: 7.8; Range: 6.4-8.2; Units: GM/DL; Status: F Test: ALBUMIN; Value: 3.8; Range: 3.2-5.2; Units: GM/DL; Status: F Test: ALBUMIN/GLOBULIN RATIO; Value: 0.95; Range: 1.00-1.93; Abnormal: Below low normal; Status: F Test Note: ; Units are mL/min/1.73 m2 Chronic Kidney Disease Staging per NKF: Stage I & II GFR >=60 Normal to Mildly Decreased Stage III GFR 30-59 Moderately Decreased Stage IV GFR 15-29 Severely Decreased Stage V GFR <15 Very Little GFR Left ESRD GFR <15 on [place] [facility] Radiology Order: CT ABD & PELVIS W/O CONTRAST Test: CT ABD & PELVIS W/O CONTRAST REASON FOR EXAMINATION: n/v, abd pain. Cerebral palsy - history limited.; ; CT of the abdomen and pelvis without contrast; Clinical statement: Pain.; Technique: Multiple axial CT images were obtained from the base of the lungs to the floor of the pelv; is utilizing 5 mm axial slices without administration of contrast. Coronal and sagittal reconstructio; ns were also obtained.; Comparison: 01/05/2015.; Findings:; Chest: The visualized lung bases are clear.; Abdomen: The kidneys are normal in size bilaterally. There is no evidence of hydronephrosis or nephro; lithiasis. The liver, spleen, pancreas, gallbladder and adrenal glands are unremarkable. The aorta de; monstrates normal caliber and contour. There is no abdominal lymphadenopathy or ascites.; Pelvis: Moderate amount of stool fills the colon. The bowel is otherwise unremarkable, with no obstru; ctive or inflammatory changes. The appendix is normal. The urinary bladder is within normal limits. T; here is no pelvic lymphadenopathy or ascites. The other pelvic structures appear unremarkable.; Bones: There are no suspicious osseous abnormalities seen.; Impression: Moderate constipation. No other acute findings.; ; Outcome: 17:52 Decision to Hospitalize by Provider. ke 21:40 Discharge Assessment: Patient awake, alert and oriented x 3. No cognitive and/or mlc functional deficits noted. Patient verbalized understanding of disposition instructions. patient administered narcotics - no. The following High Risk Discharge criteria are identified: None. Admitted to Med/Surg accompanied by tech, family with patient, via stretcher. Condition: stable. Property :Personal belongings accompany Pt. 21:41 CT Study completed. mlc 21:50 Patient left the ED. [facility] [place] Signatures: Dispatcher [employer] EDMS Sonali Reyes RN RN kcs Peters, Mary RN Karen Bonner mcp, FINISH MIXER FINISH MIXER [facility] Melina Jara, Reg Reg gb Fabián Lyon, MORTGAGE PROTECTION SALES MORTGAGE PROTECTION SALES Demetria Bazzi RN RN 1 Mirela Ortez [facility] hospital[facility] Brady RN RN [facility] [place] Lore Mckeon, Reg Reg ks16 Odalys DohertyRN RN cf2 Corrections: (The following items were deleted from the chart) 16:24 15:38 Transition of care: patient was not received from another setting of care. [address] 17:08 17:07 Pt greeted and oriented to ED. Patient advised of names of staff involved in [facility] care, location of call velazquez, wait times and NPO status. jam1 Chart Complete MTDD
--- NOTE | 2017-01-03 22:51 | EDDOCDS ---
Physician Documentation [facility] Name: Waqas Diaz Age: 31 yrs Sex: Male : 1985 Arrival Date: 01/01/2017 Time: 15:31 Bed I3 / M3 Private MD: Pat Marks Disposition: 01/01/17 17:52 Hospitalization ordered by Cosmo Hines for Inpatient Admission. Preliminary diagnosis are Dehydration, Acute kidney failure. - Bed requested for 4 [place]. - Status is Inpatient Admission. mlc - Condition is Stable. - Problem is an acute exacerbation. - Symptoms are unchanged. Historical: - Allergies: tylenolmother states interacts with other medication; - Home Meds: 1. albuterol sulfate 2.5 mg /3 mL (0.083 %) Inhl nebu 3 mL 2. felbamate 600 mg oral tab 2.5 tabs bid 3. fleets enema Unknown every 3 days 4. lisinopril 5 mg Oral tab 1 tab once daily 5. phenobarbital 32.4 mg Oral tab 1 tab 2 times per day 6. Pulmicort 0.25 mg/2 mL Inhl nbsp 7. ranitidine HCl 150 mg Oral cap 1 cap 2 times per day 8. Tab-A-Sandy oral tab daily 9. topiramate 100 mg oral tab 2 tabs 2 times per day 10. Mucinex DM 30-600 mg oral Tb12 1 tab as needed 11. ibuprofen 200 mg Oral tab 2 tabs as needed - PMHx: Cerebral Palsy; Epilepsy; GERD; Hypertension; - PSHx: Heel Cord Lengthening; Left Shoulder Reduction; - Social history: Smoking status: Patient states was never smoker of tobacco. No barriers to communication noted, The patient speaks fluent Burundian, Speaks appropriately for age. - Family history: Not pertinent. - : The pt / caregiver states he / she is not on anticoagulants. Home medication list is obtained from family members, the caregiver. - Exposure Risk Screening:: None identified. Vital Signs: 01/01 15:34 BP 87 / 56; Pulse 98; Resp 18; Temp 97.0(T); Pulse Ox 96% on R/A; Weight 49.9 kg / dem1 110.01 lbs; Height 5 ft. 2 in. (157.48 cm); 16:16 BP 90 / 68 RA Sitting (man/pedi); dem1 19:46 BP 98 / 55; Pulse 97; Resp 18; Temp 97.2; Pulse Ox 96% ; ajs 21:37 BP 104 / 55; Pulse 105; Resp 18; Temp 96.2; Pulse Ox 98% ; ajs 15:34 Body Mass Index 20.12 (49.90 kg, 157.48 cm) dem1 MDM: 16:19 IV Saline Lock ordered. ke 16:19 NS 0.9% 1000 ml IV at bolus once ordered. ke 16:19 Straight cath ordered. ke 16:20 CBC Ordered. EDMS 16:20 UA Ordered. EDMS 16:33 Financial registration complete. ks16 17:39 CBC Reviewed. ke 18:11 [facility] was scanned into [employer] and attached to record. ks16 18:32 NS 0.9% 1000 ml IV at bolus once ordered. ke 19:51 Admission / Observation Status ordered. EDMS 19:52 NPO DIET ordered. EDMS 19:52 CBC WITH DIFFERENTIAL Ordered. EDMS 19:52 COMPLETE COMPHRENSIVE METABOLI Ordered. EDMS 20:14 CT ABD & PELVIS W/O CONTRAST Ordered. EDMS 21:20 BASIC METABOLIC PROFILE Ordered. EDMS 21:20 MAGNESIUM LEVEL Ordered. EDMS 01/02 11:32 T-Sheet-- Draft Copy was scanned into [employer] and attached to record. gb Administered Medications: 01/01 16:49 Drug: NS 0.9% 1000 ml [sodium chloride 0.9 % intravenous solution] Route: IV; Rate: mcp bolus; Site: left wrist; 18:37 Drug: NS 0.9% 1000 ml [sodium chloride 0.9 % intravenous solution] Route: IV; Rate: mcp bolus; Site: left wrist; Signatures: Dispatcher [employer] EDMS Nirmala Gray RN RN daq Barnhardt, Gloria, Reg Reg gb Fabián Lyon, PAVING RAMMER PAVING RAMMER Demetria Coronado RN RN hs1 Lucia Jasmnie RN RN mlc Sorenson, Kimberly, Reg Reg ks16 Korina Gibbs RN, mcp The chart was reviewed and I authenticate all verbal orders and agree with the evaluation and treatment provided.Corrections: (The following items were deleted from the chart) 20:04 16:20 BASIC METABOLIC PROFILE+LAB ordered. EDMS EDMS 20:04 17:39 BASIC METABOLIC PROFILE+LAB reviewed. EDMS 19:52 COMPLETE COMPHRENSIVE METABOLI ordered. EDMS EDMS Attachments: 18:11 [facility] Payment Agreement [email or web address] 01/02 11:32 T-Sheet-- Draft Copy gb Chart Complete MTDD
--- NOTE | 2017-01-03 22:51 | EDDOCDS ---
Physician Documentation [facility] Name: Waqas Diaz Age: 31 yrs Sex: Male : 1985 Arrival Date: 01/01/2017 Time: 15:31 Bed I3 / M3 Private MD: Pat Marks Disposition: 01/01/17 17:52 Hospitalization ordered by Cosmo Hines for Inpatient Admission. Preliminary diagnosis are Dehydration, Acute kidney failure. - Bed requested for 4 [place]. - Status is Inpatient Admission. mlc - Condition is Stable. - Problem is an acute exacerbation. - Symptoms are unchanged. Historical: - Allergies: tylenolmother states interacts with other medication; - Home Meds: 1. albuterol sulfate 2.5 mg /3 mL (0.083 %) Inhl nebu 3 mL 2. felbamate 600 mg oral tab 2.5 tabs bid 3. fleets enema Unknown every 3 days 4. lisinopril 5 mg Oral tab 1 tab once daily 5. phenobarbital 32.4 mg Oral tab 1 tab 2 times per day 6. Pulmicort 0.25 mg/2 mL Inhl nbsp 7. ranitidine HCl 150 mg Oral cap 1 cap 2 times per day 8. Tab-A-Sandy oral tab daily 9. topiramate 100 mg oral tab 2 tabs 2 times per day 10. Mucinex DM 30-600 mg oral Tb12 1 tab as needed 11. ibuprofen 200 mg Oral tab 2 tabs as needed - PMHx: Cerebral Palsy; Epilepsy; GERD; Hypertension; - PSHx: Heel Cord Lengthening; Left Shoulder Reduction; - Social history: Smoking status: Patient states was never smoker of tobacco. No barriers to communication noted, The patient speaks fluent Russian, Speaks appropriately for age. - Family history: Not pertinent. - : The pt / caregiver states he / she is not on anticoagulants. Home medication list is obtained from family members, the caregiver. - Exposure Risk Screening:: None identified. Vital Signs: 01/01 15:34 BP 87 / 56; Pulse 98; Resp 18; Temp 97.0(T); Pulse Ox 96% on R/A; Weight 49.9 kg / dem1 110.01 lbs; Height 5 ft. 2 in. (157.48 cm); 16:16 BP 90 / 68 RA Sitting (man/pedi); dem1 19:46 BP 98 / 55; Pulse 97; Resp 18; Temp 97.2; Pulse Ox 96% ; ajs 21:37 BP 104 / 55; Pulse 105; Resp 18; Temp 96.2; Pulse Ox 98% ; ajs 15:34 Body Mass Index 20.12 (49.90 kg, 157.48 cm) dem1 MDM: 16:19 IV Saline Lock ordered. ke 16:19 NS 0.9% 1000 ml IV at bolus once ordered. ke 16:19 Straight cath ordered. ke 16:20 CBC Ordered. EDMS 16:20 UA Ordered. EDMS 16:33 Financial registration complete. ks16 17:39 CBC Reviewed. ke 18:11 [facility] [place] Payment Agreement was scanned into [employer] and attached to record. ks16 18:32 NS 0.9% 1000 ml IV at bolus once ordered. ke 19:51 Admission / Observation Status ordered. EDMS 19:52 NPO DIET ordered. EDMS 19:52 CBC WITH DIFFERENTIAL Ordered. EDMS 19:52 COMPLETE COMPHRENSIVE METABOLI Ordered. EDMS 20:14 CT ABD & PELVIS W/O CONTRAST Ordered. EDMS 21:20 BASIC METABOLIC PROFILE Ordered. EDMS 21:20 MAGNESIUM LEVEL Ordered. EDMS 01/02 11:32 T-Sheet-- Draft Copy was scanned into [employer] and attached to record. gb Administered Medications: 01/01 16:49 Drug: NS 0.9% 1000 ml [sodium chloride 0.9 % intravenous solution] Route: IV; Rate: mcp bolus; Site: left wrist; 18:37 Drug: NS 0.9% 1000 ml [sodium chloride 0.9 % intravenous solution] Route: IV; Rate: mcp bolus; Site: left wrist; Signatures: Dispatcher [employer] EDMS Nirmala Gray RN RN daq Barnhardt, Gloria, Reg Reg gb Fabián Lyon, MEDICARE COORDINATOR MEDICARE COORDINATOR Demetria Coronado RN RN hs1 Lucia Jasmine RN RN mlc Sorenson, Kimberly, Reg Reg ks16 Korina Gibbs RN, mcp The chart was reviewed and I authenticate all verbal orders and agree with the evaluation and treatment provided.Corrections: (The following items were deleted from the chart) 20:04 16:20 BASIC METABOLIC PROFILE+LAB ordered. EDMS EDMS 20:04 17:39 BASIC METABOLIC PROFILE+LAB reviewed. EDMS 19:52 COMPLETE COMPHRENSIVE METABOLI ordered. EDMS EDMS Attachments: 18:11 [facility] Payment Agreement [email or web address] 01/02 11:32 T-Sheet-- Draft Copy gb Chart Complete MTDD
--- NOTE | 2017-01-04 03:23 | IPNPDOC ---
Text Note Date of Service The patient was seen on 01/04/17. NOTE Subjective: I was called to the unit to evaluate the patient this morning due to fever. Patient is nonverbal at baseline and was unable to answer any questions. Patient 's father was accompanying the patient. Patient's father says he has not appeared to be in any discomfort, no shortness of breath or difficulty breathing , no dysuria, diarrhea, skin erythema. The only concern is of the fever which he developed this morning. Objective: Vitals: Temperature 102.4, pulse 106, respiratory rate 20, blood pressure 137/79 , pulse ox 97% on room air Gen.: Patient awake in bed, nonverbal at baseline. He does not appear to be in any acute distress Heart: Tachycardic. No murmurs, rubs, clicks or gallops Lungs: Clear to auscultation bilaterally. No wheezes, rales or rhonchi Abdomen: Active bowel sounds, soft, no masses to palpation Extremities: No lower extremity swelling Integumentary: Skin is diffusely warm to touch without erythema Assessment / Plan: #1: Fever: Patient developed fevers this evening of 102.4. Patient is nonverbal at baseline and unable to provide any history. Patient will be worked up for fever: CBC, CMP, lactic acid, portable chest x-ray, respiratory panel, urine analysis, blood cultures 2. We will follow-up the results from labs when available. Further treatment pending results from labs. I checked with the patient's father about his Tylenol allergy. Patient's father says that it is an interaction with one of his seizure medications. I reviewed his seizure medications and checked for interactions with Tylenol. I found an interaction between Tylenol and phenobarbital: The combination can be hepatotoxic and recommendation is to limit Tylenol dosing to less than 2 g per day. Order placed for Tylenol 650 mg by mouth every 8 hours when necessary for pain or fever. Patient is not a candidate for NSAIDs due to acute kidney injury. My preceptor for this patient encounter was physically present in the building during the encounter and was fully available. As needed, all aspects of the patient interview, examination, medical decision making process, and medical care plan development were reviewed and approved by the preceptor. Preceptor is aware and concurs with the plan as stated in the body of this note and will attest to such by his/her cosignature. VS,Ericbone, I+O VS, Fishbone, I+O Laboratory Tests 01/03/17 05:58 Anion Gap 9, Red Blood Count 3.62 L, Mean Corpuscular Volume 92.3, Mean Corpuscular Hemoglobin 28.7, Mean Corpuscular Hemoglobin Concent 31.1 L, Red Cell Distribution Width 13.6, Neutrophils (%) (Auto) 62.5, Lymphocytes (%) (Auto ) 26.6, Monocytes (%) (Auto) 6.3 H, Eosinophils (%) (Auto) 2.2, Basophils (%) ( Auto) 0.6, Neutrophils # (Auto) 2.7, Lymphocytes # (Auto) 1.2 L, Monocytes # ( Auto) 0.3, Eosinophils # (Auto) 0.1, Basophils # (Auto) 0.0 Vital Signs Date Time Temp Pulse Resp B/P Pulse Ox O2 Delivery O2 Flow Rate FiO2 01/03/17 22:00 98.4 85 16 112/65 97 Room Air I&O- Last 24 Hours up to 6 AM 01/04/17 06:00 Intake Total 2295 ml Output Total 0 ml Balance 2295 ml ZAK JARAMILLO DO Jan 04, 2017 03:23
[2017-01-04] MEDS: ACETAMINOPHEN TAB 650MG DOSE (2X325MG) PO PRN ×2 (03:31→12:44)
[2017-01-04 04:00] VITALS: BP 137/79
--- NOTE | 2017-01-04 04:00 | REPUSA ---
CLINICAL HISTORY: Fever. COMMENTS: Comparison is made to prior exam performed on 01/01/2017. Single view of the chest reveals interval appearance of airspace infiltrates in the left lung base. T he heart, mediastinum and pulmonary vessels appear normal. IMPRESSION: Interval appearance of airspace infiltrate in the left lung base. Thank you for your kind referral of this patient.
[2017-01-04] MEDS: KCL 20MEQ IN D5W 1000ML 1,000 ML IV SCH ×3 (05:27→16:40)
[2017-01-04] MEDS: HEPARIN SOD (PORCINE) 5000 UNITS/ML VIAL SC SCH ×3 (05:27→20:34)
[2017-01-04 05:37] LABS: BASO % 0.1 % (0.0-1.0); EOS % 0.6 % (0.0-3.0); LARGE UNSTAINED CELL % 0.5 % (0.0-4.0); LYMPH # 0.2 K/mm3 (1.5-4.5); LYMPH % 2.8 % (24.0-44.0); MEAN CORPUSCULAR HEMOGLOBIN 28.3 pg (27.0-33.0); MEAN CORPUSCULAR HGB CONC 31.2 g/dl (32.0-36.5); MEAN CORPUSCULAR VOLUME 90.7 fl (80.0-96.0); MONO # 0.2 K/mm3 (0.0-0.8); MONO % 4.2 % (0.0-5.0); NEUTROPHILS # 5.2 K/mm3 (1.8-7.7); NEUTROPHILS % 91.9 % (36.0-66.0); PLATELET COUNT, AUTOMATED 142 k/mm3 (150-450); RED CELL DISTRIBUTION WIDTH 13.1 % (11.5-14.5); WHITE BLOOD COUNT 5.7 K/mm3 (4.0-10.0)
[2017-01-04 05:48] LABS: ALBUMIN 2.7 GM/DL (3.2-5.2); ALBUMIN/GLOBULIN RATIO 0.87 (1.00-1.93); BILIRUBIN,TOTAL 0.3 MG/DL (0.2-1.0); CALCIUM LEVEL 8.2 MG/DL (8.5-10.1); CREATININE FOR GFR 2.97 MG/DL (0.70-1.30); GLOMERULAR FILTRATION RATE 26.2 (>60); POTASSIUM SERUM 3.8 MEQ/L (3.5-5.1); TOTAL PROTEIN 5.8 GM/DL (6.4-8.2)
[2017-01-04 06:00] VITALS: BP 113/56
[2017-01-04] MEDS ORDERED: cefTRIAXone SOD 1 GM in D5W MINI-BAG PLUS 50 ML IV SCH (06:00)
--- NOTE | 2017-01-04 06:14 | EEG ---
DATE OF PROCEDURE: 01/02/2017 REFERRING PHYSICIAN: Gordon Dow MD DIAGNOSIS: Seizure. EEG NUMBER: [id number]. HISTORY: Patient is a 31-year-old male who was admitted at [facility] due to upper respiratory and gastrointestinal symptoms. He was found to have acute renal failure and hypernatremia. He had low blood pressure. Patient has history of [place] seizures every day according to mother. He is unable to follow prompts. He is currently on Topamax, phenobarbital, Protonix, etc. TECHNICAL DESCRIPTION: This digital EEG was recorded by 21 scalp, ear and two EKG electrodes and was reviewed in bipolar and referential montages following reformatting in 10-20 international electrode placement system. INTERPRETATION: Patient was noted to be in awake and drowsy states during this EEG. Resting background rhythm consisted of 3-4 Hz generalized delta activity with frontally predominant triphasic waves bilaterally with frontal-occipital gradient. No sleep was achieved. Hyperventilation could not be performed. Photic stimulation remained unremarkable. EKG revealed normal sinus rhythm. No clinical or electrographic seizures were recorded. CONCLUSION: This EEG in awake and drowsy state is abnormal due to presence of generalized slowing and presence of triphasic waves consistent with nonspecific diffuse cerebral dysfunction such as seen in encephalopathy due to multiple potential causes including acute liver and kidney failure, toxic, metabolic, autoimmune, infectious, medication related or multifocal structural abnormalities. Clinical correlation is recommended.
[2017-01-04] MEDS ORDERED: SODIUM CHLORIDE 0.9% 1000 ML IV STA (06:19)
[2017-01-04 10:00] VITALS: BP 105/60
[2017-01-04] MEDS: FELBAMATE 600 MG PO SCH ×2 (10:11→20:35)
[2017-01-04] MEDS: PHENobarbital 30 MG TAB PO SCH ×2 (10:12→20:34)
[2017-01-04] MEDS: PANTOPRAZOLE 40MG INJ (PROTONIX) (C9113) IV SCH (10:12)
[2017-01-04] MEDS: TOPIRAMATE (TopAMAX) 100 MG TAB PO SCH ×2 (10:19→20:34)
--- NOTE | 2017-01-04 10:32 | IPNPDOC ---
Subjective General Date Seen The patient was seen on 01/04/17. Subjective Chief Complaint/HPI The patient is a 31-year-old male admitted with a reason for visit of Dehydration;Renal Failure. Events since last encounter Fevers last night. General: Reports: ROS Unobtainable Objective Physical Examination General Exam: Positive: Alert, No Acute Distress Eye Exam: Positive: Conjunctiva & lids normal ENT Exam: Positive: Atraumatic Neck Exam: Positive: Supple Chest Exam: Positive: Clear to auscultation, Normal air movement Heart Exam: Positive: Rate Normal, Regular Rhythm Abdomen Exam: Positive: Normal bowel sounds, Soft, Negative: Tenderness Assessment /Plan Problems Problems: (1) Fever Status: Acute Discussed With: Health Care Proxy Problem Specific Plan: Monitor Clinically, Repeat Labs, Repeat Tests Problem Text: UTI +/- pneumonia. Possibly aspiration pneumonia. Ceftriaxone started. MRSA screen pending. If not improvement will expand antimicrobial coverage, likely Zosyn. Sputum cultures/gram stain pending if possible. Urine cultures pending. Blood cultures pending. (2) MARLON (acute kidney injury) Status: Acute Discussed With: Fans Clerk, Health Care Proxy Problem Specific Plan: Consult Specialist, Repeat Labs Problem Text: Original UA noted with 2+ proteinuria. Repeat UA indicates likely UTI, no proteinuria. Continue IV fluids. Renal sono noted. Likely secondary to dehydration. Nephrology consultation appreciated. (3) Constipation Status: Acute Response to Treatment: Improving, Progressing Discussed With: Health Care Proxy Problem Specific Plan: Monitor Clinically Problem Text: Tap water or soap enemas PRN. (4) Hypernatremia Status: Resolved Discussed With: Fans Clerk, Health Care Proxy Problem Specific Plan: Consult Specialist, Monitor Clinically, Repeat Labs Problem Text: Secondary to dehydration. Continue IV fluids. Nephrology consultation appreciated. (5) Dehydration Status: Acute Response to Treatment: Progressing Discussed With: Health Care Proxy Problem Specific Plan: Monitor Clinically, Repeat Labs, Repeat Tests Problem Text: As per above, continue with IV fluids. Importance of PO fluid intake discussed with mother at bedside. (6) Proteinuria Status: Resolved Discussed With: Fans Clerk, Health Care Proxy Problem Specific Plan: Consult Specialist, Repeat Labs (7) Cerebral palsy Status: Chronic Discussed With: Health Care Proxy Problem Specific Plan: Monitor Clinically (8) GERD (gastroesophageal reflux disease) Status: Chronic Discussed With: Health Care Proxy Problem Specific Plan: Monitor Clinically (9) HTN (hypertension) Status: Chronic Response to Treatment: Stable Discussed With: Health Care Proxy Problem Specific Plan: Monitor Clinically Problem Text: As per medical history. Not on medications. (10) Seizure Status: Chronic Discussed With: Health Care Proxy Problem Specific Plan: Monitor Clinically Problem Text: Continue with home regimen, phenobarbital, topamax and felbamate. Plan/VTE VTE Prophylaxis Ordered?: Yes (Heparin) Plan IVF: Continue Diet: Advance (pureed) Activity: Advance Medications: Start Antibiotics Diagnostics: Repeat Labs in AM, Obtain Cultures Anticipated Discharge: Home, Home With Services VS, I&O, 24H, [facility] Vital Signs/I&O Vital Signs Date Time Temp Pulse Resp B/P Pulse Ox O2 Delivery O2 Flow Rate FiO2 01/04/17 06:00 101.2 103 20 113/56 95 Room Air I&O- Last 24 Hours up to 6 AM 01/04/17 06:00 Intake Total 2955 ml Output Total 0 ml Balance 2955 ml Laboratory Data 24H LABS Laboratory Tests 2 01/04/17 04:50: Urine Amorphous Sediment , Urine Appearance CLEAR, Urine Color STRAW, Urine pH 5.0, Urine Specific [place] 1.009, Urine Protein NEGATIVE, Urine Glucose (UA) NEGATIVE, Urine Ketones NEGATIVE, Urine Urobilinogen 0.2, Urine Bilirubin NEGATIVE, Urine Leukocyte Esterase 2+H, Urine Bacteria (Auto) NEGATIVE, Urine Blood 2+H, Urine Calcium Carbonate Cryst(Auto) , Urine Calcium Oxalate Cryst ( Auto) , Urine Calcium Phosphate Naina (Auto) , Urine Cellular Casts , Urine Cystine Crystals , Urine Granular Casts (Auto) , Urine Hyaline Casts (Auto) 0, Urine Leucine Crystals , Urine Mucus (Auto) , Urine Nitrite NEGATIVE, Urine Oval Fat Bodies (Auto) , Urine RBC (Auto) 7H, Urine Renal Epithelial Cells , Urine Sperm (Auto) , Urine Squamous Epithelial Cells 0, Urine Transitional Epithelial Cells , Urine Trichomonas (Auto) , Urine Triple Phosphate Cryst (Auto ) , Urine Tyrosine Crystals , Urine Uric Acid Crystals (Auto) , Urine WBC (Auto ) 33H, Urine Waxy Casts (Auto) , Urine Yeast-Like Cells (Auto) 01/04/17 05:15: Blood Urea Nitrogen 28H, Creatinine 2.97H, Sodium Level 146#H, Potassium Level 3.8, Chloride Level 114H, Carbon Dioxide Level 24, Calcium Level 8.2L, Aspartate Amino Transf (AST/SGOT) 15, Alanine Aminotransferase (ALT/SGPT) 23, Alkaline Phosphatase 114, Total Bilirubin 0.3, Total Protein 5.8L, Albumin 2.7L , Albumin/Globulin Ratio 0.87L, Anion Gap 8, White Blood Count 5.7, Red Blood Count 3.61L, Hemoglobin 10.2L, Hematocrit 32.8L, Mean Corpuscular Volume 90.7, Mean Corpuscular Hemoglobin 28.3, Mean Corpuscular Hemoglobin Concent 31.2L, Red Cell Distribution Width 13.1, Platelet Count 142L, Neutrophils (%) (Auto) 91.9H, Lymphocytes (%) (Auto) 2.8L, Monocytes (%) (Auto) 4.2, Eosinophils (%) ( Auto) 0.6, Basophils (%) (Auto) 0.1, Neutrophils # (Auto) 5.2, Lymphocytes # ( Auto) 0.2L, Monocytes # (Auto) 0.2, Eosinophils # (Auto) 0.0, Basophils # (Auto ) 0.0, Glomerular Filtration Rate 26.2L, Lactic Acid (Sepsis) 3.3*H, Large Unclassified Cells # 0.0, Large Unclassified Cells % 0.5 01/04/17 09:44: CBC/BMP Laboratory Tests 01/04/17 05:15 Calcium Level 8.2 L, Aspartate Amino Transf (AST/SGOT) 15, Alanine Aminotransferase (ALT/SGPT) 23, Alkaline Phosphatase 114, Total Bilirubin 0.3, Total Protein 5.8 L, Albumin 2.7 L, Red Blood Count 3.61 L, Mean Corpuscular Volume 90.7, Mean Corpuscular Hemoglobin 28.3, Mean Corpuscular Hemoglobin Concent 31.2 L, Red Cell Distribution Width 13.1, Neutrophils (%) (Auto) 91.9 H , Lymphocytes (%) (Auto) 2.8 L, Monocytes (%) (Auto) 4.2, Eosinophils (%) (Auto ) 0.6, Basophils (%) (Auto) 0.1, Neutrophils # (Auto) 5.2, Lymphocytes # (Auto) 0.2 L, Monocytes # (Auto) 0.2, Eosinophils # (Auto) 0.0, Basophils # (Auto) 0.0 Microbiology Microbiology 01/04/17 Blood Culture, Received Pending 01/04/17 Blood Culture, Received Pending 01/04/17 Respiratory Virus Panel (PCR) ([facility]) - Final, Complete VICTOR HUGO HA MD Jan 04, 2017 10:32
--- NOTE | 2017-01-04 11:08 | IPN ---
DATE: 01/04/2017 SUBJECTIVE: Patient was seen and examined at the bedside today in the morning. He is awake. His father is present at the bedside. His sodium is significantly better. Last 24 hour events were noted. Patient spiked fever overnight. T-max was 102.4 degrees Fahrenheit. Patient was examined by overnight resident. Stat chest x-ray was done. Blood cultures and lactate were ordered. Serum lactate was 3.3. A bolus of normal saline was ordered which has not been given so far because patient was otherwise hemodynamically stable and the primary team wanted to touch base with nephrology service before giving more fluids. Patient was started on IV Rocephin 1 gram IV 24 hourly and chest x-ray done today showed possible left sided infiltrate. Patient's renal function continues to deteriorate at this time. REVIEW OF SYSTEMS: I was unable to do review of system in this patient who has history of cerebral palsy and baseline, nonverbal and he does not communicate. OBJECTIVE: Vital signs: Temperature is 101.2 degrees Fahrenheit, blood pressure is 113/56, pulse is 103, respiratory rate 18, saturating 95% on room air. Intake and output: Urine output is not recorded because he has incontinent voids. Total intake since overnight 780 mL. PHYSICAL EXAMINATION: General: Patient is awake but he is nonverbal. Does not follow commands and he does not appear to be in any distress at this time. Head and neck exam: Pupils equal, round, reactive to light. Mucous membranes are moist. Head is slightly microcephalic. Neck is supple, there is no jugular venous distention (JVD). Cardiovascular: S1, S2. Regular rate. No murmur, rub or gallop. Respiratory: Chest is clear to auscultation bilaterally. Bilateral equal air entry. No rales or rhonchi. Abdomen is soft, positive bowel sounds, nontender, no ascites, no organomegaly. He does not have a Stout catheter. Extremities: No clubbing or cyanosis. No edema. Central nervous system: Patient moves all extremities but otherwise because of history of cerebral palsy, he does not follow any commands. At baseline, he is nonverbal. Skin: No rashes or ulcers. LAB REVIEW: CBC showed WBC 5.7, hemoglobin 12.2, platelets 142. Urinalysis done today morning showed it was straw colored. There was 2+ blood, 2+ leukocyte esterase. There were 33 WBC, 7 red blood cells. No bacteria. BMP done today morning showed sodium 146, it is better than yesterday, it was 155 yesterday. Potassium 3.8, chloride 114, bicarbonate 24, BUN 28, creatinine 2.97. It is worse than yesterday, it was 2.73 yesterday. Glucose 127. Lactate was 3.3 this morning. Repeat lactate is pending. Calcium 8.2, albumin 2.7. Microbiology: Blood culture is pending. Imaging: Chest x-ray done today morning showed interval appearance of air space infiltrate on the left lung base. CURRENT MEDICATIONS: Patient's medications were all reviewed by me. He was started on Rocephin 1 gram IV every 24 hours. His IV fluid drip has been decreased to 75 mL/hr. There was a normal saline bolus ordered but it has not been given so far. He was on Topamax 200 mg by mouth twice daily and the dose was reduced by me today to 100 mg by mouth twice daily because of his worsening renal function. ASSESSMENT: 31-year-old male with past medical history of cerebral palsy, epilepsy, gastroesophageal reflux, hypertension, who presented to the emergency room with nausea, vomiting, dehydration. Nephrology service following the patient for management of acute renal failure and electrolyte abnormalities. Hospital course was complicated overnight by fever spike. PLAN: 1. Fever spike and possible left sided lung infiltrate. Patient was started on pureed diet yesterday. Although parents do not mention any witnessed aspiration or vomiting, but because of patient's history of cerebral palsy, it is quite possible he might has aspirated. I am going to do a CAT scan of the chest to rule out aspiration pneumonia and if there is infiltrates, then patient would probably need anaerobic coverage as well and we need to switch the antibiotics to Zosyn. Patient also has dirty urine. I have ordered urine culture as well. Continue Tylenol as needed for fever. 2. Hypernatremia. Hypernatremia is secondary to volume depletion, dehydration and decreased oral intake of water. Patient is currently on IV D5W plus potassium chloride. His sodium is significantly getting better from 154 to 146, however, I have decreased the IV fluid rate to 75 mL/hr today because patient only weighs 47 kg. 3. Hypokalemia. Patient's potassium is very stable at this time and he is getting IV potassium chloride along with D5W. Continue current rate. 4. Acute renal failure is secondary to combination of volume depletion, hypotension on arrival, use of tigist inhibitors at home and now again fever spike with possible sepsis. Continue IV fluid at this time. I am also going to check the urine culture to rule out urinary tract infection and I have also decreased the dose of Topamax because it is renally excreted and renal function is deteriorating. 5. Seizure disorder. I have decreased the Topamax dose to 100 mg by mouth twice daily because patient's glomerular filtration rate at this time is less than 30. 6. Cerebral palsy and inability to drink water. Patient was started on pureed diet that he usually takes at home as well, however, there is possibility of aspiration. We are going to do a swallow evaluation at this time before resuming his diet again because of the possibility of aspiration pneumonia. Plan of care was discussed with the hospitalist team, Dr. Gordon Dow. [facility] NURSING FACILITYGretel
[2017-01-04] MEDS ORDERED: SODIUM CHLORIDE 0.9% 1000 ML IV ONE (11:15)
[2017-01-04] MEDS: PIPERACILLIN/TAZOBACTAM SOD 2.25 GM in D5W MINI-BAG PLUS 50 ML IV SCH ×3 (11:51→23:16)
--- NOTE | 2017-01-04 13:03 | REP ---
CT study of the chest without contrast: History: Fever, cerebral palsy. Question aspiration. Comparison chest x-ray is from this date. Technique: Helical scanning is acquired. The patient was unable to cooperate with breath hold instructions or to bring his arms over his head. Incidental note is made of an azygos lobe. This is a normal variant. There is a small quantity of pleural fluid bilaterally left a little larger than right. There is some linear discoid atelectasis in the left lower lobe. Some dependent gravitational changes are seen in the posterior lung blackwell left more so than right. No definite infiltrate is seen. No endobronchial disease is appreciated. No adrenal lesion is seen. There are two or three tiny calcific opacities in the collecting system region in the upper pole of the left kidney consistent with intrarenal nephrolithiasis. There is a small cyst in the upper pole of the right kidney measuring 13 mm. The visualized upper abdominal structures are otherwise unremarkable. Impression: No definite infiltrate. Very small amount of pleural fluid bilaterally with some dependent subsegmental atelectatic changes. Tiny intrarenal calculi upper pole left kidney with no evidence of hydronephrosis. Small cyst seen in the upper pole right kidney. Signed by Dat Mcgrath MD 01/04/2017 02:59 P
[2017-01-04 14:00] VITALS: BP 105/69
[2017-01-04 18:00] VITALS: BP 102/63
[2017-01-04 22:00] VITALS: BP 92/58
[2017-01-05] MEDS: KCL 20MEQ IN D5W 1000ML 1,000 ML IV SCH ×2 (04:49→08:55)
[2017-01-05] MEDS: PIPERACILLIN/TAZOBACTAM SOD 2.25 GM in D5W MINI-BAG PLUS 50 ML IV SCH ×4 (04:49→22:26)
[2017-01-05] MEDS: HEPARIN SOD (PORCINE) 5000 UNITS/ML VIAL SC SCH ×3 (04:49→21:03)
[2017-01-05 05:56] LABS: BASO % 0.1 % (0.0-1.0); EOS # 0.1 K/mm3 (0.0-0.50); EOS % 0.6 % (0.0-3.0); LARGE UNSTAINED CELL # 0.1 K/mm3 (0.0-0.4); LARGE UNSTAINED CELL % 0.9 % (0.0-4.0); LYMPH # 1.1 K/mm3 (1.5-4.5); LYMPH % 7.5 % (24.0-44.0); MEAN CORPUSCULAR HEMOGLOBIN 28.2 pg (27.0-33.0); MEAN CORPUSCULAR HGB CONC 30.9 g/dl (32.0-36.5); MEAN CORPUSCULAR VOLUME 91.1 fl (80.0-96.0); MONO # 0.4 K/mm3 (0.0-0.8); MONO % 3.1 % (0.0-5.0); NEUTROPHILS # 12.3 K/mm3 (1.8-7.7); NEUTROPHILS % 87.8 % (36.0-66.0); PLATELET COUNT, AUTOMATED 146 k/mm3 (150-450); RED CELL DISTRIBUTION WIDTH 13.1 % (11.5-14.5)
[2017-01-05 06:00] VITALS: BP 107/57
[2017-01-05 06:05] LABS: ALBUMIN 2.3 GM/DL (3.2-5.2); ALBUMIN/GLOBULIN RATIO 0.64 (1.00-1.93); BILIRUBIN,TOTAL 0.2 MG/DL (0.2-1.0); CALCIUM LEVEL 7.9 MG/DL (8.5-10.1); CREATININE FOR GFR 2.87 MG/DL (0.70-1.30); GLOMERULAR FILTRATION RATE 27.3 (>60); POTASSIUM SERUM 4.1 MEQ/L (3.5-5.1); TOTAL PROTEIN 5.9 GM/DL (6.4-8.2)
[2017-01-05] MEDS: PANTOPRAZOLE 40MG INJ (PROTONIX) (C9113) IV SCH (08:54)
[2017-01-05] MEDS: FELBAMATE 600 MG PO SCH ×2 (08:54→21:02)
[2017-01-05] MEDS: PHENobarbital 30 MG TAB PO SCH ×2 (08:54→21:02)
[2017-01-05] MEDS: TOPIRAMATE (TopAMAX) 100 MG TAB PO SCH ×2 (08:54→21:03)
--- NOTE | 2017-01-05 12:15 | IPNPDOC ---
Subjective General Date Seen The patient was seen on 01/05/17. Subjective Chief Complaint/HPI The patient is a 31-year-old male admitted with a reason for visit of Dehydration;Renal Failure. General: Reports: ROS Unobtainable Objective Physical Examination General Exam: Positive: Alert, No Acute Distress Eye Exam: Positive: Conjunctiva & lids normal ENT Exam: Positive: Atraumatic Neck Exam: Positive: Supple Chest Exam: Positive: Clear to auscultation, Normal air movement Heart Exam: Positive: Rate Normal, Regular Rhythm Abdomen Exam: Positive: Normal bowel sounds, Soft, Negative: Tenderness Assessment /Plan Problems Problems: (1) Fever Status: Acute Discussed With: Health Care Proxy Problem Specific Plan: Consult Specialist (speech therapy), Monitor Clinically , Repeat Labs, Repeat Tests Problem Text: UTI +/- pneumonia. Possibly aspiration pneumonia. Known history dysphagia. Family reports has been worsening. Nursing reports increasing difficulty with meals. Continue with Zosyn, MRSA screen negative. Sputum cultures/gram stain pending if possible. Urine cultures pending. Blood cultures pending. (2) MARLON (acute kidney injury) Status: Acute Discussed With: Vocational Nurse, Health Care Proxy Problem Specific Plan: Consult Specialist, Repeat Labs Problem Text: Original UA noted with 2+ proteinuria. Repeat UA indicates UTI, no proteinuria. Continue IV fluids. Renal sono noted. Likely secondary to dehydration. Nephrology consultation appreciated. (3) Constipation Status: Acute Response to Treatment: Improving, Progressing Discussed With: Health Care Proxy Problem Specific Plan: Monitor Clinically Problem Text: Tap water or soap enemas PRN. (4) Hypernatremia Status: Resolved Discussed With: Vocational Nurse, Health Care Proxy Problem Specific Plan: Consult Specialist, Monitor Clinically, Repeat Labs Problem Text: Secondary to dehydration. Continue IV fluids. Nephrology consultation appreciated. (5) Dehydration Status: Acute Response to Treatment: Progressing Discussed With: Health Care Proxy Problem Specific Plan: Monitor Clinically, Repeat Labs, Repeat Tests Problem Text: As per above, continue with IV fluids. Importance of PO fluid intake discussed with mother at bedside. (6) Proteinuria Status: Resolved Discussed With: Vocational Nurse, Health Care Proxy Problem Specific Plan: Consult Specialist, Repeat Labs (7) Cerebral palsy Status: Chronic Discussed With: Health Care Proxy Problem Specific Plan: Monitor Clinically (8) GERD (gastroesophageal reflux disease) Status: Chronic Discussed With: Health Care Proxy Problem Specific Plan: Monitor Clinically (9) HTN (hypertension) Status: Chronic Response to Treatment: Stable Discussed With: Health Care Proxy Problem Specific Plan: Monitor Clinically Problem Text: As per medical history. Not on medications. (10) Seizure Status: Chronic Discussed With: Health Care Proxy Problem Specific Plan: Monitor Clinically Problem Text: Continue with home regimen, phenobarbital, topamax and felbamate. Plan/VTE VTE Prophylaxis Ordered?: Yes (Heparin) Plan IVF: Continue Diet: Advance (pureed) Activity: Advance Medications: Start Antibiotics Diagnostics: Repeat Labs in AM, Obtain Cultures Anticipated Discharge: Home, Home With Services VS, I&O, 24H, [facility] Vital Signs/I&O Vital Signs Date Time Temp Pulse Resp B/P Pulse Ox O2 Delivery O2 Flow Rate FiO2 01/05/17 10:41 99.0 01/05/17 06:00 101 19 107/57 94 Room Air I&O- Last 24 Hours up to 6 AM 01/05/17 06:00 Intake Total 2505 ml Output Total 150 ml Balance 2355 ml Laboratory Data 24H LABS Laboratory Tests 2 01/05/17 05:10: Blood Urea Nitrogen 36H, Creatinine 2.87H, Sodium Level 143, Potassium Level 4.1 , Chloride Level 111H, Carbon Dioxide Level 22, Calcium Level 7.9L, Aspartate Amino Transf (AST/SGOT) 12L, Alanine Aminotransferase (ALT/SGPT) 19, Alkaline Phosphatase 107, Total Bilirubin 0.2, Total Protein 5.9L, Albumin 2.3L, Albumin/ Globulin Ratio 0.64L, Anion Gap 10, White Blood Count 14.0H, Red Blood Count 3.70L, Hemoglobin 10.4L, Hematocrit 33.8L, Mean Corpuscular Volume 91.1, Mean Corpuscular Hemoglobin 28.2, Mean Corpuscular Hemoglobin Concent 30.9L, Red Cell Distribution Width 13.1, Platelet Count 146L, Neutrophils (%) (Auto) 87.8H , Lymphocytes (%) (Auto) 7.5L, Monocytes (%) (Auto) 3.1, Eosinophils (%) (Auto) 0.6, Basophils (%) (Auto) 0.1, Neutrophils # (Auto) 12.3H, Lymphocytes # (Auto) 1.1L, Monocytes # (Auto) 0.4, Eosinophils # (Auto) 0.1, Basophils # (Auto) 0.0, Glomerular Filtration Rate 27.3L, Large Unclassified Cells # 0.1, Large Unclassified Cells % 0.9 CBC/BMP Laboratory Tests 01/05/17 05:10 Calcium Level 7.9 L, Aspartate Amino Transf (AST/SGOT) 12 L, Alanine Aminotransferase (ALT/SGPT) 19, Alkaline Phosphatase 107, Total Bilirubin 0.2, Total Protein 5.9 L, Albumin 2.3 L, Red Blood Count 3.70 L, Mean Corpuscular Volume 91.1, Mean Corpuscular Hemoglobin 28.2, Mean Corpuscular Hemoglobin Concent 30.9 L, Red Cell Distribution Width 13.1, Neutrophils (%) (Auto) 87.8 H , Lymphocytes (%) (Auto) 7.5 L, Monocytes (%) (Auto) 3.1, Eosinophils (%) (Auto ) 0.6, Basophils (%) (Auto) 0.1, Neutrophils # (Auto) 12.3 H, Lymphocytes # ( Auto) 1.1 L, Monocytes # (Auto) 0.4, Eosinophils # (Auto) 0.1, Basophils # (Auto ) 0.0 Microbiology Microbiology 01/04/17 Blood Culture - Preliminary, Resulted No growth after 24 hours . All specim... 01/04/17 Blood Culture - Preliminary, Resulted No growth after 24 hours . All specim... 01/04/17 MRSA Screen, Received Pending 01/04/17 Respiratory Virus Panel (PCR) ([facility]) - Final, Complete 01/04/17 Urine Culture, Received Pending VICTOR HUGO HA MD Jan 05, 2017 12:15
[2017-01-05] MEDS: ONDANSETRON 4MG/2ML VIAL (J2405) IV PRN (13:18)
[2017-01-05 14:00] VITALS: BP 103/62
[2017-01-05 22:00] VITALS: BP 121/62
--- NOTE | 2017-01-06 03:50 | IPN ---
DATE: 01/05/2017 SUBJECTIVE: Patient was seen and examined at the bedside today in the morning. He was lying in the bed in no apparent distress. Patient's mother was also present at the bedside. Last 24 hour events were noted. Patient was spiking fevers yesterday. Antibiotics were changed to Zosyn. He was improved since midnight last night. He is afebrile this morning. Patient also get a CT scan of the chest done yesterday for possible aspiration pneumonia, which did not show any definite infiltrate. REVIEW OF SYSTEMS: Patient is unable to provide any review of systems. He has history of cerebral palsy. OBJECTIVE: VITAL SIGNS: Temperature is 99 degrees Fahrenheit at this time, T-max in the last 24 hours is 101.1 degrees Fahrenheit yesterday in the afternoon, blood pressure is 107/57, pulse is 101 respiratory rate 18, saturating 94% on room air. Intake and output: Urine output is not recorded well. Patient does not have a Stout catheter. He had three incontinent voids yesterday, four incontinent voids so far today since overnight. He got three liters of intake yesterday, and 735 mL so far today since overnight. PHYSICAL EXAMINATION: GENERAL: Patient is awake but does not follow commands. Does not communicate, in no apparent distress. HEAD AND NECK EXAM: Head is slightly microcephalic. Pupils are equally round and reactive to light. Mucous membranes are moist. Neck is supple. There is no jugular venous distention (JVD). CARDIOVASCULAR: S1, S2, regular rate. No murmur, rub or gallop. RESPIRATORY: Chest is clear to auscultation bilaterally. Bilateral equal air entry. No rales or rhonchi. ABDOMEN: Soft, positive bowel sounds, nontender, no ascites, no organomegaly. EXTREMITIES: No clubbing or cyanosis. No edema of the lower extremities. CENTRAL NERVOUS SYSTEM: Patient moves all four extremities, but otherwise does not follow commands and does not communicate. He has history of cerebral palsy. SKIN: No rashes or ulcers. LAB REVIEW: CBC showed WBC 14, hemoglobin 10.4, platelets 146. BMP showed sodium 143, potassium 4.1, chloride 111, bicarbonate 22, BUN is 36, creatinine is 2.8, glucose 102, calcium is 7.9, albumin is 2.3. Microbiology: Urine cultures are still pending. IMAGING: CT of the chest without contrast was done yesterday which showed no definite infiltrate, very small amount of pleural fluid bilaterally. CURRENT MEDICATIONS: Patient's current medications were all reviewed by me. His IV fluid rate has been changed to 60 mL/hr. He continues to be on Zosyn 2.25 grams every six hours, and his Topamax dose was decreased to 100 mg by mouth twice daily yesterday because of his acute kidney injury and glomerular filtration rate (GFR) of less than 30. There are no other changes in the medications at this time. ASSESSMENT: 31-year-old male with past medical history of cerebral palsy, epilepsy, gastroesophageal reflux, hypertension on pureed diet at home. He presented to the emergency room with nausea, vomiting, and dehydration. Nephrology service following the patient for management of acute renal failure and electrolyte abnormalities. Hospital course is complicated by fever spikes and source is not known at this time. PLAN: 1. Fever and leukocytosis. Patient got a CT chest done yesterday to rule out possible infiltrate; no significant infiltrate was seen on the CT chest. He had a dirty urine. His urine culture is pending still. He was switched to IV Zosyn yesterday because of persistent fever spikes despite being on Rocephin. Continue Zosyn at this time. If patient keeps on spiking fevers, then we might have to add vancomycin as well for Gram-positive coverage. Continue aspiration precautions as well. 2. Hypernatremia. Patient's hypernatremia is significantly better today. Sodium is 143. I have decreased the IV D5W rate to 60 mL/hr. 3. Acute renal failure secondary to multiple etiologies including volume depletion, hypotension on arrival, tigist inhibitors, fever and possible sepsis. Continue IV fluid hydration with D5W. His creatinine has plateaued at this time. Continue to monitor renal function, daily weight, and intake and output. No evidence of hydronephrosis on the imaging. No need for Stotu catheter at this time. 4. Seizure disorder. Topamax dose was decreased to 100 mg by mouth twice daily because of glomerular filtration (GFR) of less than 30. Continue current dose of phenobarbital 30 mg by mouth twice a day. 5. Cerebral palsy and inability to drink water. Patient is on pureed diet. He is being given thickened liquids along with his diet, and he is getting IV fluid hydration as well. If his sodium stays stable, I am going to stop his D5W, and continue to encourage oral thickened water with meals. Plan of care was discussed with the patient's mother at the bedside. MAGAN
[2017-01-06] MEDS: PIPERACILLIN/TAZOBACTAM SOD 2.25 GM in D5W MINI-BAG PLUS 50 ML IV SCH ×4 (04:10→22:28)
[2017-01-06] MEDS: HEPARIN SOD (PORCINE) 5000 UNITS/ML VIAL SC SCH ×3 (04:14→20:27)
[2017-01-06] MEDS: KCL 20MEQ IN D5W 1000ML 1,000 ML IV SCH (04:15)
[2017-01-06 06:00] VITALS: BP_SYST 108; BP_SYST 91; BP_DIAS 55; BP_DIAS 70
[2017-01-06 06:48] LABS: BASO % 0.1 % (0.0-1.0); EOS # 0.1 K/mm3 (0.0-0.50); EOS % 0.8 % (0.0-3.0); LARGE UNSTAINED CELL # 0.1 K/mm3 (0.0-0.4); LARGE UNSTAINED CELL % 1.3 % (0.0-4.0); LYMPH # 0.8 K/mm3 (1.5-4.5); LYMPH % 7.5 % (24.0-44.0); MEAN CORPUSCULAR HEMOGLOBIN 28.6 pg (27.0-33.0); MEAN CORPUSCULAR HGB CONC 32.2 g/dl (32.0-36.5); MEAN CORPUSCULAR VOLUME 88.8 fl (80.0-96.0); MONO # 0.3 K/mm3 (0.0-0.8); MONO % 3.1 % (0.0-5.0); NEUTROPHILS # 9.2 K/mm3 (1.8-7.7); NEUTROPHILS % 87.2 % (36.0-66.0); PLATELET COUNT, AUTOMATED 133 k/mm3 (150-450); WHITE BLOOD COUNT 10.5 K/mm3 (4.0-10.0)
[2017-01-06 07:07] LABS: ALBUMIN 2.2 GM/DL (3.2-5.2); ALBUMIN/GLOBULIN RATIO 0.71 (1.00-1.93); BILIRUBIN,TOTAL 0.3 MG/DL (0.2-1.0); CALCIUM LEVEL 7.9 MG/DL (8.5-10.1); CREATININE FOR GFR 2.77 MG/DL (0.70-1.30); GLOMERULAR FILTRATION RATE 28.4 (>60); POTASSIUM SERUM 3.7 MEQ/L (3.5-5.1); TOTAL PROTEIN 5.3 GM/DL (6.4-8.2)
[2017-01-06] MEDS: PHENobarbital 30 MG TAB PO SCH ×2 (10:49→20:26)
[2017-01-06] MEDS: TOPIRAMATE (TopAMAX) 100 MG TAB PO SCH ×2 (10:49→20:26)
[2017-01-06] MEDS: FELBAMATE 600 MG PO SCH ×2 (10:49→20:26)
[2017-01-06] MEDS: PANTOPRAZOLE 40MG INJ (PROTONIX) (C9113) IV SCH (10:50)
--- NOTE | 2017-01-06 11:40 | IPNPDOC ---
Subjective General Date Seen The patient was seen on 01/06/17. Subjective Chief Complaint/HPI The patient is a 31-year-old male admitted with a reason for visit of Dehydration;Renal Failure. General: Reports: ROS Unobtainable Objective Physical Examination General Exam: Positive: Alert, No Acute Distress Eye Exam: Positive: Conjunctiva & lids normal ENT Exam: Positive: Atraumatic Neck Exam: Positive: Supple Chest Exam: Positive: Clear to auscultation, Normal air movement Heart Exam: Positive: Rate Normal, Regular Rhythm Abdomen Exam: Positive: Normal bowel sounds, Soft, Negative: Tenderness Assessment /Plan Problems Problems: (1) Fever Status: Acute Response to Treatment: Improving Discussed With: Health Care Proxy Problem Specific Plan: Consult Specialist (speech therapy), Monitor Clinically , Repeat Labs, Repeat Tests Problem Text: UTI +/- pneumonia. Possibly aspiration pneumonia. No infiltrates noted on CT chest. Known history dysphagia. Family reports has been worsening. Nursing reports increasing difficulty with meals. Has been made NPO with swallow evaluation pending. Continue with Zosyn, MRSA screen negative. Sputum cultures/gram stain pending if possible. Urine cultures reveal pseudomonas. Blood cultures pending, negative to date. Respiratory panel negative. (2) MARLON (acute kidney injury) Status: Acute Response to Treatment: Improving Discussed With: Dairy Cattle Farm Worker, Health Care Proxy Problem Specific Plan: Consult Specialist, Repeat Labs Problem Text: Original UA noted with 2+ proteinuria. Repeat UA indicates UTI, no proteinuria. Continue IV fluids. Renal sono noted. Likely secondary to dehydration. Discussed with nephrology, assistance appreciated. (3) Constipation Status: Acute Response to Treatment: Improving, Progressing Discussed With: Health Care Proxy Problem Specific Plan: Monitor Clinically Problem Text: Tap water or soap enemas PRN. (4) Hypernatremia Status: Resolved Discussed With: Dairy Cattle Farm Worker, Health Care Proxy Problem Specific Plan: Consult Specialist, Monitor Clinically, Repeat Labs Problem Text: Secondary to dehydration. Continue IV fluids. Nephrology consultation appreciated. (5) Dehydration Status: Acute Response to Treatment: Progressing Discussed With: Health Care Proxy Problem Specific Plan: Monitor Clinically, Repeat Labs, Repeat Tests Problem Text: As per above, continue with IV fluids. Importance of PO fluid intake discussed with mother at bedside. (6) Proteinuria Status: Resolved Discussed With: Dairy Cattle Farm Worker, Health Care Proxy Problem Specific Plan: Consult Specialist, Repeat Labs (7) Cerebral palsy Status: Chronic Discussed With: Health Care Proxy Problem Specific Plan: Monitor Clinically (8) GERD (gastroesophageal reflux disease) Status: Chronic Discussed With: Health Care Proxy Problem Specific Plan: Monitor Clinically (9) HTN (hypertension) Status: Chronic Response to Treatment: Stable Discussed With: Health Care Proxy Problem Specific Plan: Monitor Clinically Problem Text: As per medical history. Not on medications. (10) Seizure Status: Chronic Discussed With: Health Care Proxy Problem Specific Plan: Monitor Clinically Problem Text: Continue with home regimen, phenobarbital, topamax and felbamate. Plan/VTE VTE Prophylaxis Ordered?: Yes (Heparin) Plan IVF: Continue Diet: Make NPO Activity: Advance Therapy: Speech Medications: Start Antibiotics Diagnostics: Repeat Labs in AM, Obtain Cultures Anticipated Discharge: Home, Home With Services VS, [facility]&O, [facility] Vital Signs/I&O Vital Signs Date Time Temp Pulse Resp B/P Pulse Ox O2 Delivery O2 Flow Rate FiO2 01/06/17 06:00 98.2 104 18 108/70 97 Room Air I&O- Last 24 Hours up to 6 AM 01/06/17 06:00 Intake Total 1860 ml Balance 1860 ml Laboratory Data 24H LABS Laboratory Tests 2 01/06/17 05:51: Blood Urea Nitrogen 35H, Creatinine 2.77H, Sodium Level 142, Potassium Level 3.7 , Chloride Level 109H, Carbon Dioxide Level 21, Calcium Level 7.9L, Aspartate Amino Transf (AST/SGOT) 11L, Alanine Aminotransferase (ALT/SGPT) 18, Alkaline Phosphatase 103, Total Bilirubin 0.3, Total Protein 5.3L, Albumin 2.2L, Albumin/ Globulin Ratio 0.71L, Anion Gap 12, White Blood Count 10.5H, Red Blood Count 3.40L, Hemoglobin 9.7L, Hematocrit 30.2L, Mean Corpuscular Volume 88.8, Mean Corpuscular Hemoglobin 28.6, Mean Corpuscular Hemoglobin Concent 32.2, Red Cell Distribution Width 13.0, Platelet Count 133L, Neutrophils (%) (Auto) 87.2H, Lymphocytes (%) (Auto) 7.5L, Monocytes (%) (Auto) 3.1, Eosinophils (%) (Auto) 0.8, Basophils (%) (Auto) 0.1, Neutrophils # (Auto) 9.2H, Lymphocytes # (Auto) 0.8L, Monocytes # (Auto) 0.3, Eosinophils # (Auto) 0.1, Basophils # (Auto) 0.0, Glomerular Filtration Rate 28.4L, Large Unclassified Cells # 0.1, Large Unclassified Cells % 1.3 CBC/BMP Laboratory Tests 01/06/17 05:51 Calcium Level 7.9 L, Aspartate Amino Transf (AST/SGOT) 11 L, Alanine Aminotransferase (ALT/SGPT) 18, Alkaline Phosphatase 103, Total Bilirubin 0.3, Total Protein 5.3 L, Albumin 2.2 L, Red Blood Count 3.40 L, Mean Corpuscular Volume 88.8, Mean Corpuscular Hemoglobin 28.6, Mean Corpuscular Hemoglobin Concent 32.2, Red Cell Distribution Width 13.0, Neutrophils (%) (Auto) 87.2 H, Lymphocytes (%) (Auto) 7.5 L, Monocytes (%) (Auto) 3.1, Eosinophils (%) (Auto) 0.8, Basophils (%) (Auto) 0.1, Neutrophils # (Auto) 9.2 H, Lymphocytes # (Auto) 0.8 L, Monocytes # (Auto) 0.3, Eosinophils # (Auto) 0.1, Basophils # (Auto) 0.0 Microbiology Microbiology 01/04/17 Blood Culture - Preliminary, Resulted No Growth after 48 hours. All Specime... 01/04/17 Blood Culture - Preliminary, Resulted No Growth after 48 hours. All Specime... 01/04/17 MRSA Screen - Final, Complete 01/04/17 Respiratory Virus Panel (PCR) ([facility]) - Final, Complete 01/04/17 Urine Culture - Final, Complete Pseudomonas Aeruginosa VICTOR HUGO HA MD Jan 06, 2017 11:40
[2017-01-06 14:00] VITALS: BP 116/75
--- NOTE | 2017-01-06 19:46 | IPN ---
DATE: 01/06/2017 SUBJECTIVE: Patient was seen and examined at the bedside today in the morning. He was awake, in no apparent distress. He is at baseline nonverbal. His mother was present at the bedside. His intravenous (IV) line was not working, nursing was trying to get another IV line. However, his sodium continues to be stable. His creatinine is slowly trending down. Patient was found to have Pseudomonas urinary tract infection (UTI) on the cultures. He is afebrile today. REVIEW OF SYSTEMS: Patient is unable to provide any review of systems because he has cerebral palsy, at baseline nonverbal. However, as per nursing and patient's mother, patient was having some dysphagia yesterday and vomited up yesterday as well. OBJECTIVE: VITAL SIGNS: Temperature 98.2 degrees Fahrenheit, blood pressure 108/70, pulse 104, respiratory rate 18, saturating at 97% on room air. INTAKE/OUTPUT: There is no urine output recorded, patient is incontinent, he had eight incontinent voids yesterday, two voids so far today since overnight. PHYSICAL EXAMINATION: GENERAL: Patient is awake, but does not follow commands, does not communicate. HEAD and NECK EXAM: Pupils are equally round and reactive to light. Mucous membranes are moist. Neck is supple, there is no jugular venous distention (JVD). CARDIOVASCULAR: S1, S2, slightly tachycardic. No murmur, rub, or gallop. RESPIRATORY: Chest is clear to auscultation bilaterally. Bilateral equal air entry. No rales or rhonchi. ABDOMEN: Soft. Positive bowel sounds. Nontender. No ascites. No organomegaly. EXTREMITIES: No clubbing or cyanosis. No edema of the lower extremities. CENTRAL NERVOUS SYSTEM (UTILITY AIDE): Patient moves all four extremities. He has history of cerebral palsy. He does not communicate and does not follow commands. SKIN: No rashes or ulcers. LABORATORY REVIEW: CBC showed a WBC of 10.5, which is better than yesterday, it was 14 yesterday, hemoglobin is 9.7, platelets are 133. BMP showed sodium 142, potassium 3.7, chloride 109, bicarbonate 21, BUN 35, creatinine 2.7, calcium 7.9, albumin 2.2. Microbiology: Urine culture done on 01/04/2017, is growing about 15,000 colonies of Pseudomonas aeruginosa which is marina sensitive. CURRENT MEDICATIONS: Patient's medications were all reviewed by me. He continues to be on IV dextrose 5% in water (D5W) plus 20 mEq of potassium chloride (KCl) at 60 mL/hour. He continues to be on IV Zosyn which was started on 01/04/2017. There is no other change in the medications today as compared with yesterday. ASSESSMENT: 31-year-old male with past medical history of cerebral palsy, epilepsy, gastroesophageal reflux disease, hypertension, at baseline he is on a pureed diet at home. He presented to the emergency room with nausea and vomiting and dehydration. Nephrology service following the patient for management of acute renal failure and electrolyte abnormalities. PLAN: 1. Fevers, leukocytosis, most likely secondary to urinary tract infection (UTI). Patient is growing Pseudomonas in the urine which is sensitive to Zosyn. Continue current dose of Zosyn at this time. Patient got a CT scan of the chest done as well for possible aspiration pneumonia which did not show any significant infiltrate. However, Zosyn would cover possible aspiration as well. 2. Hypernatremia. Patient's sodium level is stable now, however patient is on pureed diet and he vomited up yesterday so it is very difficult to keep the patient hydrated orally. I will continue the dextrose 5% in water (D5W) IV at 60 mL/hour at this time. 3. Acute kidney injury. Multiple etiologies including dehydration, hypertension, angiotensin-converting enzyme (JOCY) inhibitors, and urinary tract infection (UTI). Continue IV fluids. Creatinine is slowly trending down. Continue the IV antibiotics. 4. Seizure disorder. Continue Topamax 100 mg by mouth twice a day because of glomerular filtration rate (GFR) of less than 30 and continue current dose of phenobarbital 30 mg twice a day. 5. Cerebral palsy and inability to drink water. Patient gets pureed diet and thickened liquids. The plan of care was discussed with the patient's mother at the bedside and with the hospitalist team, Dr. Gordon Dow.
[2017-01-06 22:00] VITALS: BP 120/71
[2017-01-07] MEDS: KCL 20MEQ IN D5W 1000ML 1,000 ML IV SCH ×2 (04:21→21:09)
[2017-01-07] MEDS: HEPARIN SOD (PORCINE) 5000 UNITS/ML VIAL SC SCH ×3 (04:41→22:51)
[2017-01-07] MEDS: PIPERACILLIN/TAZOBACTAM SOD 2.25 GM in D5W MINI-BAG PLUS 50 ML IV SCH ×4 (04:41→22:51)
[2017-01-07 06:00] VITALS: BP 111/76
[2017-01-07] MEDS: FELBAMATE 600 MG PO SCH ×2 (09:38→20:11)
[2017-01-07] MEDS: TOPIRAMATE (TopAMAX) 100 MG TAB PO SCH ×2 (09:39→20:14)
[2017-01-07] MEDS: PHENobarbital 30 MG TAB PO SCH ×2 (09:39→20:11)
[2017-01-07] MEDS: PANTOPRAZOLE 40MG INJ (PROTONIX) (C9113) IV SCH (09:39)
[2017-01-07 10:31] LABS: ALBUMIN 2.5 GM/DL (3.2-5.2); CALCIUM LEVEL 8.2 MG/DL (8.5-10.1); CREATININE FOR GFR 2.55 MG/DL (0.70-1.30); GLOMERULAR FILTRATION RATE 31.3 (>60); MAGNESIUM LEVEL 1.7 MG/DL (1.8-2.4); PHOSPHORUS LEVEL 3.4 MG/DL (2.5-4.9); POTASSIUM SERUM 3.9 MEQ/L (3.5-5.1)
[2017-01-07] MEDS ORDERED: SODIUM CHLORIDE 0.9% INJ 10 ML SYR IV PRN (12:45)
[2017-01-07 14:00] VITALS: BP 129/70
--- NOTE | 2017-01-07 14:36 | IPNPDOC ---
Subjective General Date Seen The patient was seen on 01/07/17. Subjective Chief Complaint/HPI The patient is a 31-year-old male admitted with a reason for visit of Dehydration;Renal Failure. General: Denies: Chills, Fatigue, Malaise, Night Sweats, Normal Appetite, Other Symptoms, ROS Unobtainable Objective Physical Examination General Exam: Positive: Alert, No Acute Distress Eye Exam: Positive: Conjunctiva & lids normal ENT Exam: Positive: Atraumatic Neck Exam: Positive: Supple Chest Exam: Positive: Clear to auscultation, Normal air movement Heart Exam: Positive: Rate Normal, Regular Rhythm Abdomen Exam: Positive: Normal bowel sounds, Soft, Negative: Tenderness Extremity Exam: Negative: Edema Assessment /Plan Problems Problems: (1) Fever Status: Acute Response to Treatment: Improving Discussed With: Health Care Proxy Problem Specific Plan: Consult Specialist (speech therapy), Monitor Clinically , Repeat Labs, Repeat Tests Problem Text: UTI +/- pneumonia. Possibly aspiration pneumonia. No infiltrates noted on CT chest. Known history dysphagia. Family reports has been worsening. Nursing reports increasing difficulty with meals. Has been made NPO with swallow evaluation pending. Continue with Zosyn - day #3. MRSA screen negative. Sputum cultures/gram stain pending if possible. Urine cultures reveal pseudomonas. Blood cultures pending, negative to date. Respiratory panel negative. (2) MARLON (acute kidney injury) Status: Acute Response to Treatment: Improving Discussed With: Paint Roller Winder, Health Care Proxy Problem Specific Plan: Consult Specialist, Repeat Labs Problem Text: Original UA noted with 2+ proteinuria. Repeat UA indicates UTI, cultures positive for pseudomonas. Continue IV fluids. PICC line obtained. Discussed with nephrology, assistance appreciated. (3) Constipation Status: Resolved Response to Treatment: Improving, Progressing Discussed With: Health Care Proxy Problem Specific Plan: Monitor Clinically Problem Text: Tap water or soap enemas PRN. (4) Hypernatremia Status: Resolved Discussed With: Paint Roller Winder, Health Care Proxy Problem Specific Plan: Consult Specialist, Monitor Clinically, Repeat Labs Problem Text: Secondary to dehydration. Continue IV fluids. Nephrology consultation appreciated. (5) Dehydration Status: Acute Response to Treatment: Improving Discussed With: Health Care Proxy Problem Specific Plan: Monitor Clinically, Repeat Labs, Repeat Tests Problem Text: As per above, continue with IV fluids. Importance of PO fluid intake discussed with mother at bedside. (6) Proteinuria Status: Resolved Discussed With: Paint Roller Winder, Health Care Proxy Problem Specific Plan: Consult Specialist, Repeat Labs (7) Cerebral palsy Status: Chronic Discussed With: Health Care Proxy Problem Specific Plan: Monitor Clinically (8) GERD (gastroesophageal reflux disease) Status: Chronic Discussed With: Health Care Proxy Problem Specific Plan: Monitor Clinically (9) HTN (hypertension) Status: Chronic Response to Treatment: Stable Discussed With: Health Care Proxy Problem Specific Plan: Monitor Clinically Problem Text: As per medical history. Not on medications. (10) Seizure Status: Chronic Discussed With: Health Care Proxy Problem Specific Plan: Monitor Clinically Problem Text: Continue with home regimen, phenobarbital, topamax and felbamate. Plan/VTE VTE Prophylaxis Ordered?: Yes (Heparin) Plan IVF: Continue Diet: Make NPO Activity: Advance Therapy: Speech Medications: Start Antibiotics, Taper Antibiotics Diagnostics: Repeat Labs in AM, Obtain Cultures Anticipated Discharge: Home, Home With Services Disposition Poor venous access. PICC line planned for today. NPO secondary to dysphagia, swallow evaluation pending. IV antibiotics for UTI with possible PNA - aspiration? Zosyn day #3 MARLON improving with IV fluids. Excellent care at home with father and mother. [facility]&O[facility] Signs/I&O Vital Signs Date Time Temp Pulse Resp B/P Pulse Ox O2 Delivery O2 Flow Rate FiO2 01/07/17 09:00 Room Air 01/07/17 06:00 97.1 85 18 111/76 98 I&O- Last 24 Hours up to 6 AM 01/07/17 05:59 Intake Total 1640 ml Balance 1640 ml Laboratory Data 24H LABS Laboratory Tests 2 01/07/17 09:34: Albumin 2.5L, Blood Urea Nitrogen 31H, Creatinine 2.55H, Sodium Level 140, Potassium Level 3.9, Chloride Level 107, Carbon Dioxide Level 22, Anion Gap 11, Calcium Level 8.2L, Glomerular Filtration Rate 31.3L, Magnesium Level 1.7L, Phosphorus Level 3.4 CBC/BMP Laboratory Tests 01/07/17 09:34 Anion Gap 11 Microbiology Microbiology 01/04/17 Blood Culture - Preliminary, Resulted No Growth after 72 hours. All specime... 01/04/17 Blood Culture - Preliminary, Resulted No Growth after 72 hours. All specime... 01/04/17 MRSA Screen - Final, Complete 2/10/17 Respiratory Virus Panel (PCR) (NAGA) - Final, Complete 01/04/17 Urine Culture - Final, Complete Pseudomonas Aeruginosa VICTOR HUGO HA MD Jan 07, 2017 14:36
--- NOTE | 2017-01-07 16:01 | IPN ---
DATE: 01/07/2017 Mr. Diaz is seen this morning on his bedside. He is noncommunicative. He is receiving IV fluid at 50 mL/hour due to his acute renal failure and hypernatremia. On physical examination, temperature is 97.1 degrees Fahrenheit, heart rate 85 per minute and respiratory rate 18 per minute. Blood pressure 111/76 mmHg and oxygen saturation 98% on room air. Intake and output records from yesterday showed total intake 1640 and output is not recorded. The patient's head is atraumatic. His eyes are open but he is noncommunicative and nonverbal. Sclerae is anicteric. Neck veins are not distended. Heart sounds are regular and lungs clear to auscultation. Abdomen is soft and bowel sounds are present. Extremities have no cyanosis or clubbing. Today's labs show sodium level 140, potassium 3.9. BUN 31 and creatinine 2.55. Glucose 102, calcium 8.2, phosphorus 3.7 and magnesium 1.7. PROBLEMS: 1. Acute renal failure superimposed on chronic kidney disease. Kidney function is slightly improved since yesterday. At present we will continue with intravenous fluids and monitor renal function on daily basis. 2. Hypernatremia. Sodium level has improved and the patient remains on intravenous D5W. We will continue with the same for next 24 hours and then consider to switch the IV fluid to half normal saline. 3. Nutrition. The patient has chronic issue and he is dependent totally for his care. All other issues are being addressed by hospitalist service.
[2017-01-07] MEDS: SODIUM CHLORIDE 0.9% INJ 10 ML SYR IV SCH (17:41)
[2017-01-07 22:00] VITALS: BP 116/70
[2017-01-08] MEDS: SODIUM CHLORIDE 0.9% INJ 10 ML SYR IV SCH ×2 (05:00→16:24)
[2017-01-08] MEDS: HEPARIN SOD (PORCINE) 5000 UNITS/ML VIAL SC SCH ×3 (05:16→22:27)
[2017-01-08] MEDS: PIPERACILLIN/TAZOBACTAM SOD 2.25 GM in D5W MINI-BAG PLUS 50 ML IV SCH ×2 (05:16→10:17)
[2017-01-08] MEDS: KCL 20MEQ IN D5W 1000ML 1,000 ML IV SCH (05:16)
[2017-01-08 05:53] LABS: BASO % 0.4 % (0.0-1.0); EOS # 0.1 K/mm3 (0.0-0.50); EOS % 2.5 % (0.0-3.0); LARGE UNSTAINED CELL # 0.1 K/mm3 (0.0-0.4); LARGE UNSTAINED CELL % 1.8 % (0.0-4.0); LYMPH # 0.9 K/mm3 (1.5-4.5); LYMPH % 17.2 % (24.0-44.0); MEAN CORPUSCULAR HGB CONC 32.4 g/dl (32.0-36.5); MEAN CORPUSCULAR VOLUME 89.7 fl (80.0-96.0); MONO # 0.4 K/mm3 (0.0-0.8); NEUTROPHILS # 3.1 K/mm3 (1.8-7.7); NEUTROPHILS % 70.2 % (36.0-66.0); PLATELET COUNT, AUTOMATED 196 k/mm3 (150-450); RED CELL DISTRIBUTION WIDTH 13.2 % (11.5-14.5); WHITE BLOOD COUNT 4.5 K/mm3 (4.0-10.0)
[2017-01-08 06:00] VITALS: BP 105/52
[2017-01-08 06:07] LABS: ALBUMIN 2.6 GM/DL (3.2-5.2); CALCIUM LEVEL 8.7 MG/DL (8.5-10.1); CREATININE FOR GFR 2.45 MG/DL (0.70-1.30); GLOMERULAR FILTRATION RATE 32.8 (>60); PHOSPHORUS LEVEL 3.4 MG/DL (2.5-4.9); POTASSIUM SERUM 3.6 MEQ/L (3.5-5.1)
[2017-01-08] MEDS ORDERED: E-Z-PAQUE 96% w/w SUSP 176GM BTL As Ordered ONE (09:07)
[2017-01-08] MEDS ORDERED: VARIBAR NECTAR 40% w/v 240ML SUSP BTL As Ordered ONE (09:07)
[2017-01-08] MEDS ORDERED: VARIBAR PUDDING 40% w/v 230ML TUBE As Ordered ONE (09:07)
--- NOTE | 2017-01-08 09:29 | REP ---
Procedure: PICC line insertion with Shanta The procedure was performed under the direct supervision of Dr. Duarte. The risks and benefits of the procedure were explained and informed consent was obtained by the health care proxy. The right basilic vein was localized using ultrasound guidance. The skin was prepped and draped in a sterile fashion. 2% lidocaine was used as a local anesthetic. Using ultrasound guidance the basilic vein was cannulated and a 0.018 guidewire was inserted and advanced to the SVC using fluoroscopic guidance. The needle was removed and a 4.5 Ukrainian dilator and peel-away sheath was inserted over the guide wire. A 4.5 Ukrainian single lumen catheter was cut to length of 32 cm. The dilator was removed and the catheter was inserted over the guide wire with the tip ending in the SVC. The peel-away sheath was removed and the catheter was flushed with heparinized saline as per Hospital protocol. The catheter was affixed to the skin and a sterile dressing was applied. The the patient tolerated the procedure well and there were no immediate complications. 0.5 minutes of fluoro time was utilized for this procedure. Reviewed by JULIET Chowdary 01/07/2017 05:24 PSigned by Richie Duarte MD 01/08/2017 09:21 A
[2017-01-08] MEDS: PHENobarbital 30 MG TAB PO SCH ×2 (10:14→20:06)
[2017-01-08] MEDS: PANTOPRAZOLE 40MG INJ (PROTONIX) (C9113) IV SCH (10:15)
[2017-01-08] MEDS: FELBAMATE 600 MG PO SCH ×2 (10:15→20:06)
[2017-01-08] MEDS: TOPIRAMATE (TopAMAX) 100 MG TAB PO SCH ×2 (10:15→20:06)
--- NOTE | 2017-01-08 12:27 | REP ---
COOKIE SWALLOW: The procedure was performed under the direct supervision of Dr. Duarte. The procedure was performed with Gena King from speech pathology present. 5 mL aliquots of nectar and pudding consistency barium was administered. There is no evidence of penetration or aspiration. A detailed report of this examination will be provided by speech pathology. 23 seconds of fluoroscopy time was utilized for this procedure. Reviewed by JULIET Chowdary 01/08/2017 12:54 PEdited and Signed by Richie Duarte MD 01/08/2017 03:29 P
--- NOTE | 2017-01-08 12:28 | IPN ---
DATE: 01/08/2017 Mr. Diaz is seen this morning on his bedside. His father is present on the bedside. Apparently, the patient had been made nothing by mouth (n.p.o.) due to suspicion for aspiration and he underwent a swallowing evaluation this morning. He remains on IV fluid due to dehydration and acute renal failure. The patient himself is nonverbal and noncommunicative. On physical exam, this is a young gentleman laying in the bed in a position. Temperature is 97.3 degrees Fahrenheit, heart rate 83 per minute and respiratory rate 18 per minute. Blood pressure 105/52 mmHg and oxygen saturation 97% on room air. Head is atraumatic. Ears, nose and throat are unremarkable. Neck veins are nondistended. Heart sounds are regular and lungs clear to auscultation. Abdomen soft and nontender and without any palpable organomegaly. Extremities have no cyanosis or clubbing. Today's labs show WBC count 4.5, hemoglobin 10.3 and hematocrit 31.9. Platelets 196. Sodium 138 and potassium 3.6. BUN 25 and creatinine 2.45. Calcium level 8.7 and phosphorus 3.4. Albumin is 2.6. PROBLEMS: 1. Acute renal failure, possibly superimposed on chronic kidney disease. Only slight improvement in his kidney function is noted over last 24 hours. I will increase his IV fluid rate to 75 mL per hour and will continue to monitor his kidney function on a daily basis. 2. Hypernatremia and hypokalemia. His electrolytes have improved, though potassium is still slightly on the low end. Will continue with potassium supplement in the IV fluid. I have been told that the patient did pass his swallowing evaluation and oral intake is likely to be resumed today. That will help with his nutrition and electrolytes. 3. Anemia. His anemia is chronic and stable. No specific intervention is indicated.
[2017-01-08] MEDS ORDERED: MEROPENEM INJ 1 GM in D5W MINI-BAG PLUS 100 ML IV SCH (13:45)
[2017-01-08 14:00] VITALS: BP 116/76
[2017-01-08] MEDS: MEROPENEM INJ 1 GM in D5W MINI-BAG PLUS 100 ML IV SCH (14:35)
--- NOTE | 2017-01-08 16:55 | IPN ---
DATE: 01/08/2017 Mr. Diaz went for a speech evaluation today. He had a cookie swallow and was found to have an adequate swallow. Apparently at baseline he is out of bed. During this hospitalization has been mainly in bed. Will attempt to get him out of bed today. Temperature is 97.3, pulse 83, respiratory rate 18, blood pressure 105/52, 97% on room air. Intake and output notable for positive fluid balance of 1550. Two bowel movements noted yesterday. Awake. Follows me with his eyes. Is generally in a position in bed. Is breathing easily. No accessory muscle use. Heart is distant sounding. Normal S1, S2. Abdomen soft, doughy, nontender. White cell count is 4.5, hemoglobin 10.3, and platelets of 196. BUN 25, creatinine is 2.45, slightly improved. Urine has been growing pseudomonas, which is sensitive to Zosyn. ASSESSMENT: This is a 31-year-old with multiple medical issues. 1. Patient has a urinary tract infection plus or minus pneumonia, thought to be aspiration pneumonia, though there are no infiltrates noted on chest, and he has an adequate swallow. Urine has grown pseudomonas. 2. Patient has acute kidney injury, which is minimally improved. Discussed this case in person with Dr. Streeter. 3. Patient has history of constipation. 4. Patient has hypernatremia, which has resolved. 5. Patient has cerebral palsy. Discussed the case with his father at bedside. 6. Patient has hypertension. Not on medication. 7. Patient has history of seizure disorder with a home regimen of phenobarbital, Topamax, and felbamate.
[2017-01-08 22:00] VITALS: BP 118/75
[2017-01-09] MEDS: KCL 20MEQ IN D5W 1000ML 1,000 ML IV SCH ×2 (01:25→22:19)
[2017-01-09] MEDS: MEROPENEM INJ 1 GM in D5W MINI-BAG PLUS 100 ML IV SCH ×2 (01:25→14:40)
[2017-01-09] MEDS: SODIUM CHLORIDE 0.9% INJ 10 ML SYR IV SCH ×2 (05:13→17:16)
[2017-01-09] MEDS: HEPARIN SOD (PORCINE) 5000 UNITS/ML VIAL SC SCH ×3 (05:13→21:31)
[2017-01-09 05:42] LABS: BASO % 0.4 % (0.0-1.0); EOS # 0.2 K/mm3 (0.0-0.50); EOS % 4.3 % (0.0-3.0); LARGE UNSTAINED CELL # 0.1 K/mm3 (0.0-0.4); LARGE UNSTAINED CELL % 2.1 % (0.0-4.0); LYMPH % 20.4 % (24.0-44.0); MEAN CORPUSCULAR HEMOGLOBIN 28.8 pg (27.0-33.0); MEAN CORPUSCULAR HGB CONC 32.2 g/dl (32.0-36.5); MEAN CORPUSCULAR VOLUME 89.2 fl (80.0-96.0); MONO # 0.4 K/mm3 (0.0-0.8); MONO % 9.9 % (0.0-5.0); NEUTROPHILS # 2.7 K/mm3 (1.8-7.7); PLATELET COUNT, AUTOMATED 223 k/mm3 (150-450); RED CELL DISTRIBUTION WIDTH 13.4 % (11.5-14.5); WHITE BLOOD COUNT 4.3 K/mm3 (4.0-10.0)
[2017-01-09 05:50] LABS: ALBUMIN 2.5 GM/DL (3.2-5.2); CALCIUM LEVEL 8.8 MG/DL (8.5-10.1); CREATININE FOR GFR 2.32 MG/DL (0.70-1.30); GLOMERULAR FILTRATION RATE 34.9 (>60); PHOSPHORUS LEVEL 3.4 MG/DL (2.5-4.9); POTASSIUM SERUM 3.6 MEQ/L (3.5-5.1)
[2017-01-09 06:00] VITALS: BP 105/63
[2017-01-09] MEDS: PANTOPRAZOLE 40MG INJ (PROTONIX) (C9113) IV SCH (08:49)
[2017-01-09] MEDS: PHENobarbital 30 MG TAB PO SCH ×2 (08:50→21:31)
[2017-01-09] MEDS: FELBAMATE 600 MG PO SCH ×2 (08:50→21:31)
[2017-01-09] MEDS: TOPIRAMATE (TopAMAX) 100 MG TAB PO SCH ×2 (08:50→21:31)
--- NOTE | 2017-01-09 11:12 | REP ---
Clinical: Abdominal distension. Technique: Single supine view of the abdomen and pelvis. Findings: Bowel gas pattern is nonspecific. No organomegaly. No abnormal calcifications. Skeletal structures intact with mild osteopenia suggested. Impression: Nonspecific bowel gas pattern. Signed by Seferino Shultz MD 01/09/2017 11:04 A
[2017-01-09 14:00] VITALS: BP 115/70
--- NOTE | 2017-01-09 17:09 | IPN ---
DATE: 01/09/2017 Mr. Diaz apparently is doing somewhat better. He is tolerating a diet, however he does have hiccups, which have been worse over the last three weeks. He was able to walk 250 feet last night. Temperature is 96.7, pulse 85, respiratory rate 16, blood pressure 105/62, 98% on room air. I O notable for positive fluid balance of 1650, three bowel movements yesterday. He is awake and interacting with his father upon my arrival. Moist mucous membranes. Breathing symmetrical and rested. Heart is distant sound. Abdomen is soft, doughy, non-tender. White cell count 4.3, hemoglobin 10.2, platelets of 223, BUN 20, creatinine 2.32 and improving. Repeat abdominal x-ray shows nonspecific bowel gas pattern without significant evidence of retained stool. ASSESSMENT: 31-year-old with multiple medical issues. PLAN: 1. Patient has a urinary tract infection with or without pneumonia that was thought to be aspiration pneumonia. Patient's urine has grown pseudomonas. He is continued on meropenem at this point to complete a course of therapy. At this point I believe that it is less likely that he actually has pneumonia or aspiration pneumonia. 2. Ongoing acute injury which is improving slowly. Did discuss this case with Dr. Streeter in person. 3. Patient has history of constipation. No evidence of retained stool on x-ray today. 4. Patient has resolved hyponatremia. 5. Patient has cerebral palsy. I discussed the case with family at bed side. 6. Patient has hypertension, not on medication. 7. Patient has history of seizure disorder. He did have a short seizure which is apparently not unusual. Continue with his home regimen of phenobarbital, Topamax and felbamate.
[2017-01-09 22:00] VITALS: BP 105/69
[2017-01-10] MEDS: MEROPENEM INJ 1 GM in D5W MINI-BAG PLUS 100 ML IV SCH ×2 (02:03→13:23)
[2017-01-10] MEDS: HEPARIN SOD (PORCINE) 5000 UNITS/ML VIAL SC SCH ×3 (05:12→20:53)
[2017-01-10] MEDS: SODIUM CHLORIDE 0.9% INJ 10 ML SYR IV SCH ×2 (05:12→17:30)
[2017-01-10 05:23] LABS: BASO % 0.3 % (0.0-1.0); EOS # 0.1 K/mm3 (0.0-0.50); EOS % 1.6 % (0.0-3.0); LARGE UNSTAINED CELL # 0.1 K/mm3 (0.0-0.4); LYMPH # 0.8 K/mm3 (1.5-4.5); LYMPH % 12.7 % (24.0-44.0); MEAN CORPUSCULAR HEMOGLOBIN 28.8 pg (27.0-33.0); MEAN CORPUSCULAR HGB CONC 32.8 g/dl (32.0-36.5); MEAN CORPUSCULAR VOLUME 87.8 fl (80.0-96.0); MONO # 0.4 K/mm3 (0.0-0.8); MONO % 6.1 % (0.0-5.0); NEUTROPHILS # 4.6 K/mm3 (1.8-7.7); NEUTROPHILS % 77.2 % (36.0-66.0); PLATELET COUNT, AUTOMATED 251 k/mm3 (150-450); WHITE BLOOD COUNT 5.9 K/mm3 (4.0-10.0)
[2017-01-10 05:44] LABS: ALBUMIN 2.8 GM/DL (3.2-5.2); CREATININE FOR GFR 2.39 MG/DL (0.70-1.30); GLOMERULAR FILTRATION RATE 33.7 (>60); PHOSPHORUS LEVEL 2.9 MG/DL (2.5-4.9)
[2017-01-10 06:00] VITALS: BP 110/67
--- NOTE | 2017-01-10 06:51 | IPN ---
DATE: 01/09/2017 Mr. Diaz is seen this morning on his bedside. His caregiver is present on the bedside. She reports that patient has recurrent hiccups since he had breakfast this morning. He remains on intravenous (IV) fluid due to poor oral intake. Apparently, he did pass his swallowing evaluation yesterday. Caregiver reports that even at home his liquid oral intake has been very low. There is no reported diarrhea or vomiting, so far today. On physical exam, temperature 96.7 degrees Fahrenheit, heart rate 85 per minute and respiratory rate 16 per minute. Blood pressure 105/63 mmHg and oxygen saturation 98% on room air. Patient is noncommunicative. He does not even interact. His head is atraumatic. Ears, nose and throat are unremarkable. Neck is supple and without jugular venous distention (JVD) or thyroid enlargement. Heart sounds are regular. Lungs clear to auscultation. Abdomen is soft and nontender, and bowel sounds are normal. Extremities have no cyanosis or clubbing. Today's labs show WBC count 4.3, hemoglobin 10.2 and hematocrit 31.6. Sodium 138 and potassium 3.6. BUN is 20 and creatinine 2.32. PROBLEMS: 1. Acute renal failure, possible chronic kidney disease. Patient has only slight improvement in his kidney function over last 24 hours. We will continue with IV fluid at 60 mL/hr. Patient has started to take nutrition orally in addition. At this point, we will need to monitor closely for adequacy of oral intake. 2. Hypokalemia. We have added potassium chloride 20 mEq in each liter of IV fluid due to poor oral intake. Patient is not able to take much potassium by mouth. He is also nauseated and has hiccups. We will recheck his electrolytes tomorrow morning. 3. Protein calorie malnutrition. This remains a challenge due to chronic poor oral intake. Now patient has frequent hiccups due to which he does not wish to eat. His family and caregiver has been trying to get adequate nutrition in him.
[2017-01-10] MEDS: FELBAMATE 600 MG PO SCH ×2 (09:15→20:50)
[2017-01-10] MEDS: TOPIRAMATE (TopAMAX) 100 MG TAB PO SCH ×2 (09:16→20:52)
[2017-01-10] MEDS: PANTOPRAZOLE 40MG INJ (PROTONIX) (C9113) IV SCH (09:16)
[2017-01-10] MEDS: PHENobarbital 30 MG TAB PO SCH ×2 (09:16→20:49)
[2017-01-10] MEDS: KCL 20MEQ IN D5W 1000ML 1,000 ML IV SCH (11:28)
[2017-01-10 14:00] VITALS: BP 130/76
--- NOTE | 2017-01-10 14:44 | IPN ---
DATE OF SERVICE: 01/10/2017 Mr. Diaz is seen this morning at his bedside. His father is present in the room and trying to feed his breakfast. He does not seem to be in any acute distress and remains noncommunicative, which is his baseline. He is also still on intravenous (IV) fluid due to decreased oral intake of liquids and acute renal failure. The patient's father reports that he has chronic hiccups; however, today he seems to be without any hiccups at this time. There is no reported vomiting or diarrhea. On physical examination, temperature 97.6 degrees Fahrenheit, heart rate 93 per minute and respiratory rate 15 per minute. Blood pressure 110/67 mmHg and oxygen saturation 94% on room air. His neck is supple and without jugular venous distention (JVD) or thyroid enlargement. Head is atraumatic. Sclera is anicteric and pupils are equal and reactive to light. Heart sounds regular Lungs clear to auscultation. Abdomen soft and nontender and without a palpable organomegaly. Bowel sounds normal. Extremities have no cyanosis or clubbing. Neurologically, he is at his baseline mentation. Due to cerebral palsy, he has been non communicative. Today's laboratories show WBC count 5.9, hemoglobin 10.7 and hematocrit 32.7. Platelets 251. Sodium 138 and potassium 4.0. BUN is 17 and creatinine 2.39. PROBLEMS: 1. Acute renal failure superimposed on chronic kidney disease. There is no further improvement in his kidney function, though he has been receiving IV fluid all along. I am concerned about his kidney function at this point. His renal ultrasound did show increased echogenicity, but no evidence of obstruction. 01/02/2017. At this point we will continue the IV fluid for another 24 hours. I have discussed with the patient's father and explained to him that he might have baseline chronic kidney disease. 2. Hypernatremia. Sodium level has improved, as he seems to be reasonably well-hydrated. I am going to continue with IV fluid to ensure that his hydration level is adequate and he does not have further chance of improvement. About two years ago his serum creatinine was only 0.8. 3. Protein calorie malnutrition. The patient seems to be taking his oral nutrition reasonably well now. We discussed about increasing protein intake. At this point, his parents are very involved in the patient's care and nutrition. His father clearly understands his nutritional needs. 4. Anemia. His anemia is stable and does not need any intervention at this point.
--- NOTE | 2017-01-10 18:44 | IPN ---
DATE: 01/10/2017 Mr. Diaz is doing alright. He has been up and moving around. He has been tolerating diet. No issues noted by staff at bedside. His home stereo equipment installer is also at bedside. Temperature is 98.1, pulse 93, blood pressure 110/67, 94% on room air. Input and output notable for positive fluid balance 1790. He is interactive at his baseline. Mucous membranes moist. Neck supple. Breathing is symmetrically diminished, rested. Heart distant sounds, normal S1, S2. Abdomen soft, doughy, nontender with hyperactive bowel sounds. White cell count 5.9, hemoglobin 10.7, BUN 17, creatine 2.39, which is slightly increased from 2.32. Assessment as follows: 31-year-old with multiple medical issues. Plans as follows: 1. The patient is being for urinary tract infection with or without pneumonia that was thought to be aspiration pneumonia. The patient has grown pseudomonas. Antibiotic was switched to the meropenem due to the NAGA. At this point, it seems unlikely that the patient has pneumonia or aspiration pneumonia. He did pass a swallow test. The patient has ongoing acute kidney injury, which is slowly improving. Dr. Streeter and I have discussed this case on multiple occasions. 2. The patient has a history of constipation. No evidence of retained stool on x-ray. No abdominal distension or tension on exam, although he does not have currently actively bowel sounds at this time. 3. The patient has cerebral palsy. 4. The patient has hypertension, not on medication. 5. The patient has seizure disorder. No seizure activity noted today.
[2017-01-10] MEDS: ONDANSETRON 4MG/2ML VIAL (J2405) IV PRN (19:04)
[2017-01-10 22:00] VITALS: BP 115/82
[2017-01-11] MEDS: MEROPENEM INJ 1 GM in D5W MINI-BAG PLUS 100 ML IV SCH ×2 (02:24→13:43)
[2017-01-11] MEDS: KCL 20MEQ IN D5W 1000ML 1,000 ML IV SCH ×3 (02:28→19:49)
[2017-01-11] MEDS: SODIUM CHLORIDE 0.9% INJ 10 ML SYR IV SCH ×2 (05:04→18:00)
[2017-01-11] MEDS: HEPARIN SOD (PORCINE) 5000 UNITS/ML VIAL SC SCH ×3 (05:14→21:05)
[2017-01-11 05:30] LABS: BASO % 0.4 % (0.0-1.0); EOS # 0.2 K/mm3 (0.0-0.50); EOS % 2.8 % (0.0-3.0); LARGE UNSTAINED CELL # 0.1 K/mm3 (0.0-0.4); LARGE UNSTAINED CELL % 2.6 % (0.0-4.0); LYMPH % 19.2 % (24.0-44.0); MEAN CORPUSCULAR HEMOGLOBIN 29.1 pg (27.0-33.0); MEAN CORPUSCULAR HGB CONC 33.1 g/dl (32.0-36.5); MONO # 0.3 K/mm3 (0.0-0.8); MONO % 6.3 % (0.0-5.0); NEUTROPHILS # 3.6 K/mm3 (1.8-7.7); NEUTROPHILS % 68.8 % (36.0-66.0); PLATELET COUNT, AUTOMATED 263 k/mm3 (150-450); RED CELL DISTRIBUTION WIDTH 13.2 % (11.5-14.5); WHITE BLOOD COUNT 5.3 K/mm3 (4.0-10.0)
[2017-01-11 05:47] LABS: ALBUMIN 2.7 GM/DL (3.2-5.2); CALCIUM LEVEL 8.5 MG/DL (8.5-10.1); CREATININE FOR GFR 2.08 MG/DL (0.70-1.30); GLOMERULAR FILTRATION RATE 39.6 (>60); PHOSPHORUS LEVEL 2.8 MG/DL (2.5-4.9); POTASSIUM SERUM 4.1 MEQ/L (3.5-5.1)
[2017-01-11 06:00] VITALS: BP 124/84
[2017-01-11] MEDS: PHENobarbital 30 MG TAB PO SCH ×2 (09:44→21:04)
[2017-01-11] MEDS: FELBAMATE 600 MG PO SCH ×2 (09:44→21:15)
[2017-01-11] MEDS: PANTOPRAZOLE 40MG INJ (PROTONIX) (C9113) IV SCH (09:44)
[2017-01-11] MEDS: TOPIRAMATE (TopAMAX) 100 MG TAB PO SCH ×2 (09:44→21:04)
[2017-01-11 14:00] VITALS: BP 120/74
--- NOTE | 2017-01-11 16:01 | IPN ---
DATE: 01/11/2017 Mr. Diaz had no issues overnight. He has been taking reasonable amounts of food. He was up and walking with assistance. He has no obvious complaints of discomfort. Temperature 97.3, pulse 100, respiratory rate 17, blood pressure 124/84, 98% on room air. Intake and output notable for a positive fluid balance of 2600 with eight incontinent voids. He did have a small bit of emesis after eating yesterday. He is awake, appropriately interactive to his level of ability. He does follow me with his eyes, does not follow commands. Breathing is symmetrical, diminished, no accessory muscle use, he is not tachypneic. Heart is distant sounding, normal S1, S2. Abdomen soft, doughy, nontender. White cell count 5.3, hemoglobin 10.2, and platelets of 263. BUN 14, creatinine 2.08. My assessment is as follows: This is a 31-year-old with multiple medical issues. Plan is as follows: 1. Patient has a urinary tract infection with or without pneumonia that was initially thought to be aspiration pneumonia but did pass a swallow evaluation. He is continued on meropenem currently. He will need 7 days of antibiotics. Antibiotics can be discontinued tomorrow. 2. Patient has history of constipation and fecal impaction which appears to be resolved. 3. Patient has cerebral palsy. 4. Patient has hypertension, not on medication. 5. Patient has history of seizure disorder. Continued on home medications. Addendum: Please add another problem to dictation #[id number] (Quality Compliance Manager note: Addendum merged, so new job number is [id number]) 6. The patient has acute renal failure, which is improving slowly. He was continued on intravenous (IV) fluid and will be monitored clinically. It is important to encourage him to take fluids at home to avoid this situation in the future.
[2017-01-11] MEDS: ONDANSETRON 4MG/2ML VIAL (J2405) IV PRN (21:25)
[2017-01-11 22:00] VITALS: BP 130/60
--- NOTE | 2017-01-11 22:29 | IPN ---
DATE: 01/11/2017 Mr. Diaz is seen this morning on his bedside. His father is present in the room and reports that the patient ate a good breakfast. Since yesterday he has also been tolerating increased oral fluids. The patient ambulated in the hallway. We have continued IV fluid at 60 mL per hour due to acute renal failure with possible dehydration related to decreased oral intake. PHYSICAL EXAMINATION: Temperature 97.3 degrees Fahrenheit, heart rate 100 per minute and respiratory rate 16 per minute. Blood pressure 124/84 mmHg and oxygen saturation 98% on room air. Neck veins are not abnormally distended. The patient is resting comfortably. He is noncommunicative due to cerebral palsy. Head is atraumatic and ear and nose are unremarkable. Neck veins are not abnormally distended and neck is supple. Heart: Sounds are tachycardiac and lungs clear to auscultation. Abdomen: Soft and nontender. Extremities: Without any cyanosis or clubbing. Today's labs show WBC count 5.3, hemoglobin 10.2 and hematocrit 30.7. Sodium 137 and potassium 4.1. BUN is down to 14 and creatinine 2.08. PROBLEM LIST: 1. Acute renal failure. Continues to improve with increased oral intake and ongoing IV fluids. We will continue with the IV fluid for now and recheck his renal function tomorrow. I have encouraged father to continue with increased oral intake of fluids. 2. Anemia. Anemia has been stable and is essentially unchanged. 3. Malnutrition. The patient had chronic issue and is dependent for all his nutritional needs. The patient's father reports that his oral intake is improved. At this point, we will continue with current diet plan.
[2017-01-12] MEDS: MEROPENEM INJ 1 GM in D5W MINI-BAG PLUS 100 ML IV SCH ×2 (01:36→13:25)
[2017-01-12] MEDS: SODIUM CHLORIDE 0.9% INJ 10 ML SYR IV SCH ×2 (05:18→17:12)
[2017-01-12] MEDS: HEPARIN SOD (PORCINE) 5000 UNITS/ML VIAL SC SCH ×3 (05:26→22:05)
[2017-01-12 05:42] LABS: BASO % 0.4 % (0.0-1.0); EOS # 0.2 K/mm3 (0.0-0.50); EOS % 3.3 % (0.0-3.0); LARGE UNSTAINED CELL # 0.1 K/mm3 (0.0-0.4); LARGE UNSTAINED CELL % 1.6 % (0.0-4.0); LYMPH % 19.9 % (24.0-44.0); MEAN CORPUSCULAR HGB CONC 32.9 g/dl (32.0-36.5); MONO # 0.4 K/mm3 (0.0-0.8); NEUTROPHILS # 3.2 K/mm3 (1.8-7.7); NEUTROPHILS % 66.8 % (36.0-66.0); PLATELET COUNT, AUTOMATED 320 k/mm3 (150-450); RED CELL DISTRIBUTION WIDTH 13.3 % (11.5-14.5); WHITE BLOOD COUNT 4.8 K/mm3 (4.0-10.0)
[2017-01-12 06:00] VITALS: BP 127/80
[2017-01-12 06:05] LABS: ALBUMIN 2.8 GM/DL (3.2-5.2); CREATININE FOR GFR 1.82 MG/DL (0.70-1.30); GLOMERULAR FILTRATION RATE 46.2 (>60); PHOSPHORUS LEVEL 3.1 MG/DL (2.5-4.9)
[2017-01-12] MEDS ORDERED: chlorproMAZINE 25 MG TAB (Q0161) PO PRN (09:00)
[2017-01-12] MEDS: FELBAMATE 600 MG PO SCH ×2 (10:08→20:29)
[2017-01-12] MEDS: TOPIRAMATE (TopAMAX) 100 MG TAB PO SCH ×2 (10:08→20:29)
[2017-01-12] MEDS: PHENobarbital 30 MG TAB PO SCH ×2 (10:08→20:29)
[2017-01-12] MEDS: PANTOPRAZOLE 40MG INJ (PROTONIX) (C9113) IV SCH (10:08)
[2017-01-12] MEDS: KCL 20MEQ IN D5W 1000ML 1,000 ML IV SCH (13:25)
[2017-01-12 14:00] VITALS: BP 114/65
[2017-01-12 22:00] VITALS: BP 115/68
[2017-01-13] MEDS: KCL 20MEQ IN D5W 1000ML 1,000 ML IV SCH (02:21)
[2017-01-13] MEDS: MEROPENEM INJ 1 GM in D5W MINI-BAG PLUS 100 ML IV SCH (02:21)
[2017-01-13] MEDS: SODIUM CHLORIDE 0.9% INJ 10 ML SYR IV SCH ×2 (05:56→17:43)
[2017-01-13 06:00] VITALS: BP 143/95
[2017-01-13] MEDS: HEPARIN SOD (PORCINE) 5000 UNITS/ML VIAL SC SCH ×3 (06:02→21:13)
[2017-01-13 06:33] LABS: BASO % 0.5 % (0.0-1.0); EOS # 0.1 K/mm3 (0.0-0.50); EOS % 1.9 % (0.0-3.0); LARGE UNSTAINED CELL # 0.1 K/mm3 (0.0-0.4); LARGE UNSTAINED CELL % 1.6 % (0.0-4.0); LYMPH # 1.2 K/mm3 (1.5-4.5); LYMPH % 23.6 % (24.0-44.0); MEAN CORPUSCULAR HEMOGLOBIN 29.7 pg (27.0-33.0); MEAN CORPUSCULAR HGB CONC 33.8 g/dl (32.0-36.5); MONO # 0.2 K/mm3 (0.0-0.8); MONO % 4.8 % (0.0-5.0); NEUTROPHILS # 3.1 K/mm3 (1.8-7.7); NEUTROPHILS % 67.6 % (36.0-66.0); PLATELET COUNT, AUTOMATED 398 k/mm3 (150-450); RED CELL DISTRIBUTION WIDTH 13.2 % (11.5-14.5); WHITE BLOOD COUNT 4.6 K/mm3 (4.0-10.0)
[2017-01-13 06:44] LABS: ALBUMIN 2.9 GM/DL (3.2-5.2); CALCIUM LEVEL 9.6 MG/DL (8.5-10.1); CREATININE FOR GFR 1.67 MG/DL (0.70-1.30); PHOSPHORUS LEVEL 3.6 MG/DL (2.5-4.9); POTASSIUM SERUM 4.4 MEQ/L (3.5-5.1)
[2017-01-13] MEDS: TOPIRAMATE (TopAMAX) 100 MG TAB PO SCH ×2 (09:16→21:12)
[2017-01-13] MEDS: FELBAMATE 600 MG PO SCH ×2 (09:16→21:13)
[2017-01-13] MEDS: PHENobarbital 30 MG TAB PO SCH ×2 (09:16→21:12)
[2017-01-13] MEDS: PANTOPRAZOLE 40MG INJ (PROTONIX) (C9113) IV SCH (09:16)
--- NOTE | 2017-01-13 10:43 | IPN ---
DATE: 01/12/2017 Mr. Diaz's hiccups have returned. He did have an episode of vomiting last night. He has been up and walking and they did several laps last evening. Temperature is 97.5, pulse 91, respiratory rate 17, blood pressure 127/80, 95% on room air. Intake and output notable for a positive fluid balance of 2580. One emesis noted yesterday. One bowel movement yesterday. He is somewhat sleepier this morning, not particularly interactive. Breathing is symmetrical. I:E ratio is 1:3. He gives me poor inspiratory effort. Heart is in a regular rate and rhythm. Abdomen soft, doughy, nontender to deep palpation. LABORATORY DATA: White cell count 4.8, hemoglobin 10.3, and platelets of 320. BUN is 12, creatinine 1.82 and improving. ASSESSMENT: This is a 31-year-old with multiple medical issues. PLAN: 1. Patient has a urinary tract infection with Pseudomonas. Antibiotics will be discontinued tomorrow. 2. Patient has a history of constipation and fecal impaction. This appears to be resolved. 3. Patient has an ongoing problem with hiccups. He has had lifelong hiccups which have become more frequent in the last three months and he has never been given any medicine for this. We will try some Thorazine as a trial. The underlying cause of the hiccups is unclear. 4. Patient has cerebral palsy. 5. Patient has hypertension, not on any medication. 6. Patient has a history of seizure disorder. Continued on home medications. 7. Patient of course has acute renal failure, which continues to improve. He is being followed by nephrology. Family has a goal for discharge of Saturday. [facility]
[2017-01-13 14:00] VITALS: BP 127/70
[2017-01-13 22:00] VITALS: BP 124/83
--- NOTE | 2017-01-14 03:26 | IPN ---
DATE: 01/13/2017 SUBJECTIVE: Patient was seen and examined at the bedside today in the morning. His father was present at the bedside. He reported that his hiccups significantly improved after decreasing the portion of his meal and increasing the frequency of the meal, so he is getting small, frequent meals and his hiccups have improved. His renal function is stable. His sodium level is also stable. Patient's IV fluids have been stopped today in the morning. REVIEW OF SYSTEMS: I was unable to get any review of systems from the patient. He is nonverbal. As per father, he is feeling much better. He walked a few laps around the unit today in the morning as well, and he is eating his diet with assistance. The rest of the review of systems is negative. OBJECTIVE: VITAL SIGNS: Temperature is 97.6 degrees Fahrenheit, blood pressure is 127/70, pulse is 73, respiratory rate of 18, saturating 96% on room air. Intake and output: Urine output is not recorded. Patient had almost five incontinent voids since overnight. PHYSICAL EXAMINATION: GENERAL: Patient is awake, nonverbal, in no apparent distress, lying in bed. HEAD AND NECK EXAM: Pupils are equally round and reactive to light. Mucous membranes are moist. Head is slightly microcephalic. Neck is supple. There is no jugular venous distention (JVD). CARDIOVASCULAR: S1, S2, regular rate. No murmur, rub, or gallop. RESPIRATORY: Chest is clear to auscultation bilaterally. Bilaterally equal air entry. No rales or rhonchi. ABDOMEN: Soft, positive bowel sounds, nontender, no ascites, no organomegaly. EXTREMITIES: No clubbing or cyanosis. Pulses are 2+. There is no edema. CENTRAL NERVOUS SYSTEM: Patient has baseline cerebral palsy. He is nonverbal. He does not communicate. He does not follow commands. LAB REVIEW: CBC showed WBC 4.6, hemoglobin 10.5, platelets are 398. BMP showed sodium 137, potassium 4.4, chloride 102, bicarbonate 25, BUN is 12, creatinine is 1.67; it is better than yesterday, it was 1.82 yesterday. Albumin is 2.9. CURRENT MEDICATIONS: Patient's current medications were all reviewed by me. His meropenem has been stopped and his IV fluids were also stopped this morning. There is no other change in the medications today as compared with yesterday. ASSESSMENT: 31-year-old male with acute kidney injury and hypernatremia on presentation secondary to nausea, vomiting, and decreased oral intake. PLAN: 1. Acute kidney injury. Patient's renal function continues to improve. His IV fluids have been stopped. Continue to encourage oral hydration at this time. Creatinine has improved to 1.6 today. 2. Hypernatremia. His hypernatremia has improved. Continue to encourage thickened liquids with meals. Sodium is stable at 137. 3. History of cerebral palsy and inability to take regular diet. Patient needs assistance with meals. He takes thickened liquids and pureed diet. Family was instructed to give him small frequent meals because he was having a lot of hiccups because of reflux. His hiccups have improved. His albumin level has improved to 2.9 now. 4. Anemia. Hemoglobin is stable at 10.5. Continue to monitor for now. Plan of care was discussed with the hospitalist team, Dr. Gael Zamarripa. Patient's renal function continues to improve. His IV fluids have been stopped. He is making good progress. Electrolytes are stable. Nephrology service will sign off at this moment. Please call nephrology service as needed for any help in the management of this patient.
[2017-01-14] MEDS: SODIUM CHLORIDE 0.9% INJ 10 ML SYR IV SCH (05:12)
[2017-01-14] MEDS: HEPARIN SOD (PORCINE) 5000 UNITS/ML VIAL SC SCH (05:13)
[2017-01-14 05:33] LABS: BASO % 0.4 % (0.0-1.0); EOS # 0.1 K/mm3 (0.0-0.50); EOS % 1.4 % (0.0-3.0); LARGE UNSTAINED CELL # 0.1 K/mm3 (0.0-0.4); LARGE UNSTAINED CELL % 2.1 % (0.0-4.0); LYMPH # 1.2 K/mm3 (1.5-4.5); LYMPH % 27.3 % (24.0-44.0); MEAN CORPUSCULAR HEMOGLOBIN 29.4 pg (27.0-33.0); MEAN CORPUSCULAR HGB CONC 33.5 g/dl (32.0-36.5); MEAN CORPUSCULAR VOLUME 87.7 fl (80.0-96.0); MONO # 0.2 K/mm3 (0.0-0.8); MONO % 5.3 % (0.0-5.0); NEUTROPHILS # 2.6 K/mm3 (1.8-7.7); NEUTROPHILS % 63.6 % (36.0-66.0); PLATELET COUNT, AUTOMATED 451 k/mm3 (150-450); RED CELL DISTRIBUTION WIDTH 13.3 % (11.5-14.5); WHITE BLOOD COUNT 4.2 K/mm3 (4.0-10.0)
[2017-01-14 05:51] LABS: CALCIUM LEVEL 9.2 MG/DL (8.5-10.1); CREATININE FOR GFR 1.64 MG/DL (0.70-1.30); GLOMERULAR FILTRATION RATE 52.1 (>60); PHOSPHORUS LEVEL 4.2 MG/DL (2.5-4.9); POTASSIUM SERUM 3.9 MEQ/L (3.5-5.1)
[2017-01-14 06:00] VITALS: BP 130/76
[2017-01-14] MEDS ORDERED: CHLOR25TA PO (07:29)
[2017-01-14] MEDS: PHENobarbital 30 MG TAB PO SCH (08:49)
[2017-01-14] MEDS: PANTOPRAZOLE 40MG INJ (PROTONIX) (C9113) IV SCH (08:49)
[2017-01-14] MEDS: TOPIRAMATE (TopAMAX) 100 MG TAB PO SCH (08:49)
[2017-01-14] MEDS: FELBAMATE 600 MG PO SCH (08:49)
--- NOTE | 2017-01-14 11:06 | IPN ---
DATE: 01/12/2017 SUBJECTIVE: Patient was seen and examined at the bedside today in the morning. She was having hiccups and as per patient's parents, he is happy today. He ate half of his breakfast today morning. He continues to be on IV fluid hydration and his creatinine is slowly improving. REVIEW OF SYSTEMS: Patient is unable to provide any review of systems but as per parents at the bedside, he did not have any fever, chills or rigors. He continues to have hiccups. There is no shortness of breath and he is tolerating his feeds, although he is not able to finish his food fully. Patient has been walking with the help of a walker in the hospital as well. Rest of review of system is negative. OBJECTIVE: Vital signs: Temperature is 97.2 degrees Fahrenheit, blood pressure is 114/65, pulse is 91, respiratory rate of 17, saturating 95% on room air. Intake and output: There is no urine output recorded. Patient had about 7 incontinent voids yesterday and around 5 incontinent voids so far today since overnight. PHYSICAL EXAMINATION: General: Patient is awake, actively having hiccups, in no apparent distress. He is nonverbal because of history of cerebral palsy. Head and neck exam: Extraocular muscles are intact. Pupils equal, round, reactive to light. Mucous membranes are moist. Patient has microcephaly. Neck is supple, there is no jugular venous distention (JVD). Cardiovascular: S1, S2, tachycardia. No murmur, rub or gallop. Respiratory: Chest is clear to auscultation bilaterally. Bilateral equal air entry. Abdomen: Soft, positive bowel sounds, nontender, no ascites. No organomegaly. Extremities: No clubbing, cyanosis or edema. Central nervous system: Patient is at baseline nonverbal. Has history of cerebral palsy. Otherwise, he moves all four extremities. LAB REVIEW: CBC showed WBC of 4.8, hemoglobin 10.3, platelets are 320. BMP showed sodium 148, potassium 4, chloride 103, bicarbonate 24, BUN 12, creatinine 1.8. Albumin is 2.8. CURRENT MEDICATIONS: Patient's medications were all reviewed by me. He continues to be on IV D5W plus 20 mEq of KCL at 60 mL an hour and he continues to be on IV meropenem as well. There is no other change in medications at this time. ASSESSMENT AND PLAN: 1. Acute renal failure. Patient continues to improve his renal function. He continues to be on IV fluids, I have continued the IV fluid and encouraged oral hydration as well. IV fluids will be stopped when the renal function improves. 2. Hypernatremia. Patient's hypernatremia has improved with encouraging oral hydration and continues IV D5W. Continue the IV D5 at this time. Patient is drinking thickened juices with meals as well. 3. History of cerebral palsy and difficult to take oral feeds. Patient is on thickened liquids and pureed diet. Patient's family is actively trying to increase his oral input. Continue to encourage oral hydration as well. 4. Intractable hiccups. Patient has been given chlorpromazine as needed for hiccups by the primary team.
--- NOTE | 2017-01-14 15:46 | IPN ---
DATE: 01/13/2017 Mr. Diaz had more hiccups last evening, did receive one dose of Thorazine which he seemed to tolerate, has not had any hiccups since. Has been taking reasonable by mouth. Walked three times in the hallway yesterday with assistance. Temperature 96.4, pulse 108, respiratory rate 16, blood pressure 143/95, 98% on room air. Intake and output notable for a positive fluid balance of 2730. He is awake, appropriately interactive, at his baseline in that he follows with his eyes, he is nonverbal. Breathing is symmetrical, rested, no accessory muscle use, he is not tachypneic. Heart is distant sounding, normal S1, S2. Abdomen is soft, doughy, nontender. White cell count 4.6, hemoglobin 10.5, BUN 12, creatinine 1.67. My assessment is as follows: This is a 31-year-old with multiple medical issues. Plan is as follows: 1. Patient has a urinary tract infection with Pseudomonas. 2. Patient has a history of constipation and fecal impaction, this has resolved. 3. Patient has ongoing problems with hiccups. He has been given a dose of Thorazine which he has tolerated. We can trial that at home. His hiccups have been lifelong, but recently worse. 4. Patient has cerebral palsy. 5. Patient has hypertension, not on medication. 6. Patient has history of seizure disorder. Did have a seizure during this stay, is not unusual for him to have witnessed seizures. Continuing on his home medications. 7. Patient's acute renal failure is resolving. I have discontinued his intravenous (IV) fluid today with hopes of getting him home tomorrow.
--- NOTE | 2017-01-15 14:06 | DSES ---
DATE OF ADMISSION: 12/27/2016 DATE OF DISCHARGE: 01/14/2017 SPECIALISTS INVOLVED IN CARE: Dr. Fong and Dr. Streeter. COMPLICATIONS: None. PROCEDURES: None. DISCHARGE DIAGNOSES: 1. Fever related to pseudomonas urinary tract infection. 2. Acute kidney injury. 3. Constipation. 4. Hypernatremia. 5. Dehydration. 6. Proteinuria. 7. Cerebral palsy. 8. Gastroesophageal reflux disease (GERD). 9. Hypertension. 10. Seizure disorder with seizures during his stay. 11. Malnutrition. 12. Suspected swallow dysfunction. SUMMARY OF PRESENTATION: This is a 31-year-old who presented with generalized weakness and dehydration, nausea, vomiting. He had a previous upper respiratory tract infection, was noted to have acute renal failure and hypernatremia. He was hypotensive with a low blood pressure. He was admitted to the hospitalist service and given intravenous (IV) fluid. He was seen in consultation by nephrology, was found to be constipated. There was concern about swallow dysfunction, but he went on to pass the swallow evaluation. He had also suffered from hiccups during the stay, which were quite severe and seemed to be associated with larger meal sizes and seemed to resolve with frequent smaller feedings. He was found to have a urinary tract infection with pseudomonas, was given appropriate broad-spectrum antibiotics. He did suffer from seizures during his stay, which are apparently chronic. He also was able to ambulate and recovered physically relatively quickly. On day of discharge, he is at his nonverbal baseline, tolerating a diet. He has ambulated approximately 500 feet on the day of discharge. Mucous membranes moist. Neck supple. Breathing is symmetrical and rested. Heart is in regular rate and rhythm. Abdomen is soft, doughy and nontender. White cell count 4.2, hemoglobin 10.3. Creatinine 1.64 and trending towards his baseline, which is likely near 1. DISCHARGE INSTRUCTIONS: Include the followin. Follow up with Andrew Foley 01/17/2017 at 1:00 p.m. 2. Activity as tolerated. 3. His diet will be multiple small feeds throughout the day, pureed, pudding, thick liquid. He is to continue: - albuterol three times a day as needed for shortness of breath - budesonide four times daily as needed for shortness of breath - enema rectally every three days as needed for constipation - felbamate 900 mg by mouth twice a day - guaifenesin 600 mg by mouth twice a day as needed for congestion - lisinopril 5 mg by mouth daily at bedtime - phenobarbital 32.4 mg by mouth twice a day - Zantac 150 mg by mouth twice a day - multivitamin tablet daily - Topamax 200 mg by mouth daily DISCONTINUE: - Motrin I prescribed a few tablets of Thorazine 25 mg by mouth every six hours as needed for hiccups as a trial. He did seem to tolerate one dose in the hospital. He is given a prescription for a basic metabolic panel (BMP) done 01/17/2017 with the results to Andrew Foley.
== END 2017-01-14 11:34 | disposition home or self-care (01) | DRG 460 ==
LOC: M ED 15:31 → M ED INP 19:45 → M MSPAV 21:57
PROVIDERS: ADMIT Internal Medicine; ATTEND Internal Medicine
PROC: 05HB33Z Insertion of Infusion Device into Right Basilic Vein, Percutaneous Approach (ICD-10-PCS; principal; 2017-01-07)
DX: N17.9 Acute kidney failure, unspecified (principal); E87.0 Hyperosmolality and hypernatremia; E46 Unspecified protein-calorie malnutrition; N39.0 Urinary tract infection, site not specified; E86.0 Dehydration; G80.9 Cerebral palsy, unspecified; G40.909 Epilepsy, unspecified, not intractable, without status epilepticus; K21.9 Gastro-esophageal reflux disease without esophagitis; I10 Essential (primary) hypertension; T46.4X5A Adverse effect of angiotensin-converting-enzyme inhibitors, initial encounter; E87.6 Hypokalemia; D72.829 Elevated white blood cell count, unspecified; K56.41 Fecal impaction; K52.9 Noninfective gastroenteritis and colitis, unspecified; B96.5 Pseudomonas (aeruginosa) (mallei) (pseudomallei) as the cause of diseases classified elsewhere; R06.6 Hiccough; D64.9 Anemia, unspecified; Z87.442 Personal history of urinary calculi; Z79.899 Other long term (current) drug therapy; Z88.8 Allergy status to other drugs, medicaments and biological substances

== ENCOUNTER → 2017-01-16 | Outpatient (CLI) | payer MEDICAID ==
[~2017-01-16] MED LIST: ALBU83IN INH; BUDE0.254 INH; CHLOR25TA PO; ENEM1ENE4 PR; FELB600T5 PO; IBUP-1114 PO; LISI-542 PO; MUCI600T34 PO; PHEN32.4 PO; RANI150T PO; TAB-TAB PO; TOPI1TAB31 PO
[2017-01-16 17:09] LABS: CALCIUM LEVEL 9.3 MG/DL (8.5-10.1); CREATININE FOR GFR 2.23 MG/DL (0.70-1.30); GLOMERULAR FILTRATION RATE 36.5 (>60); POTASSIUM SERUM 5.1 MEQ/L (3.5-5.1)
== END ==
LOC: M LRY 13:19
PROVIDERS: ATTEND Internal Medicine
DX: E86.0 Dehydration (principal)

== ENCOUNTER → 2017-01-25 | Outpatient (REF) | payer MEDICAID ==
[2017-01-25 20:40] LABS: MEAN CORPUSCULAR HEMOGLOBIN 29.7 pg (27.0-33.0); MEAN CORPUSCULAR HGB CONC 33.4 g/dl (32.0-36.5); MEAN CORPUSCULAR VOLUME 88.9 fl (80.0-96.0); RED CELL DISTRIBUTION WIDTH 12.9 % (11.5-14.5); WHITE BLOOD COUNT 5.6 K/mm3 (4.0-10.0)
[2017-01-25 20:51] LABS: ALBUMIN 3.5 GM/DL (3.2-5.2); ALBUMIN/GLOBULIN RATIO 0.97 (1.00-1.93); BILIRUBIN,TOTAL 0.2 MG/DL (0.2-1.0); CALCIUM LEVEL 9.2 MG/DL (8.5-10.1); CREATININE FOR GFR 1.84 MG/DL (0.70-1.30); GLOMERULAR FILTRATION RATE 45.6 (>60); PHENOBARBITAL LEVEL 27.5 UG/ML (15.0-40.0); POTASSIUM SERUM 4.1 MEQ/L (3.5-5.1); TOTAL PROTEIN 7.1 GM/DL (6.4-8.2)
== END ==
LOC: M SFHCLERA 15:41
PROVIDERS: ATTEND Physician Assistant
DX: G40.409 Other generalized epilepsy and epileptic syndromes, not intractable, without status epilepticus (principal); Z79.899 Other long term (current) drug therapy
CPT/HCPCS: 80053; 80184; 85027; G0480

== ENCOUNTER → 2017-02-05 | Outpatient (REF) | payer MEDICAID | LOC: M SFHCLERA 09:20 | PROVIDERS: ATTEND Physician Assistant | DX: K59.00 Constipation, unspecified (principal) ==

== ENCOUNTER → 2017-05-08 | Outpatient (REF) | payer MEDICAID | LOC: M SFHCLERA 09:06 | PROVIDERS: ATTEND Physician Assistant | DX: G40.409 Other generalized epilepsy and epileptic syndromes, not intractable, without status epilepticus (principal) ==

== ENCOUNTER → 2017-05-09 | Outpatient (REF) | payer MEDICAID ==
[2017-05-09 11:49] LABS: MEAN CORPUSCULAR HGB CONC 32.2 g/dl (32.0-36.5); MEAN CORPUSCULAR VOLUME 89.9 fl (80.0-96.0); RED CELL DISTRIBUTION WIDTH 12.6 % (11.5-14.5); WHITE BLOOD COUNT 4.5 K/mm3 (4.0-10.0)
[2017-05-09 12:04] LABS: ALBUMIN 4.1 GM/DL (3.2-5.2); ALBUMIN/GLOBULIN RATIO 1.17 (1.00-1.93); ALKALINE PHOSPHATASE 188 U/L (45-117); ALT/SGPT 34 U/L (12-78); ANION GAP 7 MEQ/L (8-16); AST/SGOT 14 U/L (15-37); BILIRUBIN,TOTAL 0.2 MG/DL (0.2-1.0); BLOOD UREA NITROGEN 20 MG/DL (7-18); CALCIUM LEVEL 9.4 MG/DL (8.5-10.1); CARBON DIOXIDE LEVEL 25 MEQ/L (21-32); CHLORIDE LEVEL 105 MEQ/L (98-107); GLOMERULAR FILTRATION RATE > 60.0 (>60); GLUCOSE, FASTING 85 MG/DL (70-105); PHENOBARBITAL LEVEL 30.6 UG/ML (15.0-40.0); POTASSIUM SERUM 3.6 MEQ/L (3.5-5.1); SODIUM LEVEL 137 MEQ/L (136-145); TOTAL PROTEIN 7.6 GM/DL (6.4-8.2)
== END ==
LOC: M SFHCLERA 08:06
PROVIDERS: ATTEND Physician Assistant
DX: G40.409 Other generalized epilepsy and epileptic syndromes, not intractable, without status epilepticus (principal)
CPT/HCPCS: 80053; 80184; 85027; G0480

== ENCOUNTER → 2017-08-14 | Outpatient (REF) | payer MEDICAID ==
[~2017-08-14] MED LIST changes: -MUCI600T34 PO; +MUCI600T37 PO; -PHEN32.4 PO; +PHEN32.44 PO; +TOPI100T9 PO; -TOPI1TAB31 PO
[2017-08-14 12:34] LABS: ALBUMIN 3.9 GM/DL (3.2-5.2); ALBUMIN/GLOBULIN RATIO 1.05 (1.00-1.93); ALKALINE PHOSPHATASE 138 U/L (45-117); ALT/SGPT 25 U/L (12-78); ANION GAP 7 MEQ/L (8-16); AST/SGOT 12 U/L (15-37); BILIRUBIN,TOTAL 0.2 MG/DL (0.2-1.0); BLOOD UREA NITROGEN 18 MG/DL (7-18); CALCIUM LEVEL 9.3 MG/DL (8.5-10.1); CARBON DIOXIDE LEVEL 26 MEQ/L (21-32); CHLORIDE LEVEL 107 MEQ/L (98-107); CREATININE FOR GFR 0.93 MG/DL (0.70-1.30); GLOMERULAR FILTRATION RATE > 60.0 (>60); GLUCOSE, FASTING 105 MG/DL (70-105); POTASSIUM SERUM 3.7 MEQ/L (3.5-5.1); SODIUM LEVEL 140 MEQ/L (136-145); TOTAL PROTEIN 7.6 GM/DL (6.4-8.2)
[2017-08-14 12:52] LABS: PHENOBARBITAL LEVEL 29.1 UG/ML (15.0-40.0)
== END ==
LOC: M SFHCLERA 08:29
PROVIDERS: ATTEND Physician Assistant
DX: N18.2 Chronic kidney disease, stage 2 (mild) (principal); G40.409 Other generalized epilepsy and epileptic syndromes, not intractable, without status epilepticus; E55.9 Vitamin D deficiency, unspecified
CPT/HCPCS: 80053; 80184; 82306; G0480

== ENCOUNTER → 2017-10-24 | Outpatient (REF) | payer MEDICAID ==
[2017-10-24 17:35] LABS: MEAN CORPUSCULAR HEMOGLOBIN 27.3 pg (27.0-33.0); MEAN CORPUSCULAR HGB CONC 31.3 g/dl (32.0-36.5); MEAN CORPUSCULAR VOLUME 87.3 fl (80.0-96.0); PLATELET COUNT, AUTOMATED 265 10^3/uL (150-450); RED CELL DISTRIBUTION WIDTH 14.6 % (11.5-14.5); WHITE BLOOD COUNT 5.1 10^3/uL (4.0-10.0)
[2017-10-24 18:15] LABS: PHENOBARBITAL LEVEL 27.2 UG/ML (15.0-40.0)
== END ==
LOC: M SFHCLERA 12:08
PROVIDERS: ATTEND Physician Assistant
DX: K08.89 Other specified disorders of teeth and supporting structures (principal); E55.9 Vitamin D deficiency, unspecified; G40.409 Other generalized epilepsy and epileptic syndromes, not intractable, without status epilepticus

== ENCOUNTER 2018-01-04 10:47 | Emergency (ER) | payer MEDICAID ==
[2018-01-04 12:00] LABS: BASO # 0.1 10^3/uL (0.0-0.2); BASO % 1.2 % (0.0-1.0); EOS # 0.3 10^3/uL (0.0-0.50); EOS % 7.4 % (0.0-3.0); HEMATOCRIT 36.5 % (42.0-52.0); HEMOGLOBIN 11.7 g/dl (14.0-18.0); IMMATURE GRANULOCYTE % 0.2 % (0-3.0); LYMPH # 1.1 10^3/uL (1.5-4.5); LYMPH % 26.6 % (24.0-44.0); MEAN CORPUSCULAR HEMOGLOBIN 26.9 pg (27.0-33.0); MEAN CORPUSCULAR HGB CONC 32.1 g/dl (32.0-36.5); MEAN CORPUSCULAR VOLUME 83.9 fl (80.0-96.0); MONO # 0.3 10^3/uL (0.0-0.8); MONO % 7.4 % (0.0-5.0); NEUTROPHILS # 2.3 10^3/uL (1.8-7.7); NEUTROPHILS % 57.2 % (36.0-66.0); PLATELET COUNT, AUTOMATED 282 10^3/uL (150-450); RED BLOOD COUNT 4.35 10^6/uL (4.30-6.10); RED CELL DISTRIBUTION WIDTH 13.5 % (11.5-14.5); WHITE BLOOD COUNT 4.1 10^3/uL (4.0-10.0)
[2018-01-04 12:45] LABS: LACTIC ACID SEPSIS PROTOCOL 1.4 MMOL/L (0.4-2.0)
[2018-01-04 12:45] LABS: ALBUMIN 3.6 GM/DL (3.2-5.2); ALBUMIN/GLOBULIN RATIO 0.78 (1.00-1.93); ALKALINE PHOSPHATASE 115 U/L (45-117); ALT/SGPT 30 U/L (12-78); ANION GAP 7 MEQ/L (8-16); AST/SGOT 29 U/L (7-37); BILIRUBIN,TOTAL 0.3 MG/DL (0.2-1.0); BLOOD UREA NITROGEN 12 MG/DL (7-18); CALCIUM LEVEL 8.9 MG/DL (8.5-10.1); CARBON DIOXIDE LEVEL 25 MEQ/L (21-32); CHLORIDE LEVEL 107 MEQ/L (98-107); CREATININE FOR GFR 0.94 MG/DL (0.70-1.30); GLOMERULAR FILTRATION RATE > 60.0 (>60); GLUCOSE, FASTING 94 MG/DL (70-100); SODIUM LEVEL 139 MEQ/L (136-145); TOTAL PROTEIN 8.2 GM/DL (6.4-8.2)
[2018-01-04] MEDS: MAGNESIUM CITRATE 300 ML BTL PO (13:15)
== END 2018-01-04 13:22 | disposition home or self-care (01) ==
LOC: M ED 10:47
DX: K59.00 Constipation, unspecified (principal); I10 Essential (primary) hypertension; K21.9 Gastro-esophageal reflux disease without esophagitis; F70 Mild intellectual disabilities; J30.89 Other allergic rhinitis; F80.1 Expressive language disorder; Z79.899 Other long term (current) drug therapy; Z88.8 Allergy status to other drugs, medicaments and biological substances
CPT/HCPCS: 74021

== ENCOUNTER → 2018-04-14 | Outpatient (REF) | payer MEDICAID | LOC: M SFHCLERA 18:48 | DX: J02.9 Acute pharyngitis, unspecified (principal) ==

== ENCOUNTER → 2018-07-02 | Outpatient (REF) | payer MEDICAID ==
[2018-07-02 12:20] LABS: BASO # 0.1 10^3/uL (0.0-0.2); BASO % 1.2 % (0.0-1.0); EOS # 0.3 10^3/uL (0.0-0.50); EOS % 8.1 % (0.0-3.0); HEMATOCRIT 37.6 % (42.0-52.0); HEMOGLOBIN 11.8 g/dl (13.5-17.5); IMMATURE GRANULOCYTE % 0.2 % (0-3.0); LYMPH # 0.9 10^3/uL (1.5-4.5); LYMPH % 21.4 % (24.0-44.0); MEAN CORPUSCULAR HEMOGLOBIN 26.9 pg (27.0-33.0); MEAN CORPUSCULAR HGB CONC 31.4 g/dl (32.0-36.5); MEAN CORPUSCULAR VOLUME 85.8 fl (80.0-96.0); MONO # 0.4 10^3/uL (0.0-0.8); NEUTROPHILS # 2.5 10^3/uL (1.8-7.7); NEUTROPHILS % 60.1 % (36.0-66.0); PLATELET COUNT, AUTOMATED 345 10^3/uL (150-450); RED BLOOD COUNT 4.38 10^6/uL (4.30-6.10); RED CELL DISTRIBUTION WIDTH 13.8 % (11.5-14.5); WHITE BLOOD COUNT 4.2 10^3/uL (4.0-10.0)
[2018-07-02 12:52] LABS: ALBUMIN 3.7 GM/DL (3.2-5.2); ALBUMIN/GLOBULIN RATIO 0.97 (1.00-1.93); ALKALINE PHOSPHATASE 102 U/L (45-117); ALT/SGPT 35 U/L (12-78); ANION GAP 8 MEQ/L (8-16); AST/SGOT 15 U/L (7-37); BILIRUBIN,TOTAL 0.2 MG/DL (0.2-1.0); BLOOD UREA NITROGEN 10 MG/DL (7-18); CALCIUM LEVEL 9.2 MG/DL (8.5-10.1); CARBON DIOXIDE LEVEL 27 MEQ/L (21-32); CHLORIDE LEVEL 107 MEQ/L (98-107); CREATININE FOR GFR 0.83 MG/DL (0.70-1.30); GLOMERULAR FILTRATION RATE > 60.0 (>60); GLUCOSE, FASTING 100 MG/DL (70-100); PHENOBARBITAL LEVEL 23.9 UG/ML (15.0-40.0); POTASSIUM SERUM 3.5 MEQ/L (3.5-5.1); SODIUM LEVEL 142 MEQ/L (136-145); TOTAL PROTEIN 7.5 GM/DL (6.4-8.2)
== END ==
LOC: M SFHCLERA 09:00
DX: G40.409 Other generalized epilepsy and epileptic syndromes, not intractable, without status epilepticus (principal)

== ENCOUNTER → 2018-07-31 | Outpatient (REF) | payer MEDICAID ==
[2018-07-31 11:39] LABS: BASO # 0.1 10^3/uL (0.0-0.2); BASO % 1.2 % (0.0-1.0); EOS # 0.3 10^3/uL (0.0-0.50); HEMATOCRIT 38.2 % (42.0-52.0); IMMATURE GRANULOCYTE % 0.2 % (0-3.0); LYMPH # 0.7 10^3/uL (1.5-4.5); LYMPH % 17.5 % (24.0-44.0); MEAN CORPUSCULAR HEMOGLOBIN 26.7 pg (27.0-33.0); MEAN CORPUSCULAR HGB CONC 31.4 g/dl (32.0-36.5); MEAN CORPUSCULAR VOLUME 84.9 fl (80.0-96.0); MONO # 0.3 10^3/uL (0.0-0.8); MONO % 7.1 % (0.0-5.0); NEUTROPHILS # 2.8 10^3/uL (1.8-7.7); PLATELET COUNT, AUTOMATED 268 10^3/uL (150-450); RED CELL DISTRIBUTION WIDTH 13.6 % (11.5-14.5); WHITE BLOOD COUNT 4.2 10^3/uL (4.0-10.0)
[2018-07-31 12:08] LABS: ALBUMIN 3.6 GM/DL (3.2-5.2); ALBUMIN/GLOBULIN RATIO 0.88 (1.00-1.93); ALKALINE PHOSPHATASE 117 U/L (45-117); ALT/SGPT 30 U/L (12-78); ANION GAP 10 MEQ/L (8-16); AST/SGOT 17 U/L (7-37); BILIRUBIN,DIRECT < 0.1 MG/DL (0.0-0.2); BILIRUBIN,TOTAL 0.3 MG/DL (0.2-1.0); BLOOD UREA NITROGEN 10 MG/DL (7-18); CARBON DIOXIDE LEVEL 24 MEQ/L (21-32); CHLORIDE LEVEL 108 MEQ/L (98-107); CREATININE FOR GFR 0.95 MG/DL (0.70-1.30); GLOMERULAR FILTRATION RATE > 60.0 (>60); GLUCOSE, FASTING 126 MG/DL (70-100); SODIUM LEVEL 142 MEQ/L (136-145); TOTAL PROTEIN 7.7 GM/DL (6.4-8.2)
== END ==
LOC: M SFHCLERA 08:35
DX: G40.409 Other generalized epilepsy and epileptic syndromes, not intractable, without status epilepticus (principal)

== ENCOUNTER → 2018-08-30 | Outpatient (REF) | payer MEDICAID ==
[2018-08-30 19:15] LABS: BASO # 0.1 10^3/uL (0.0-0.2); BASO % 1.6 % (0.0-1.0); EOS # 0.4 10^3/uL (0.0-0.50); EOS % 8.8 % (0.0-3.0); HEMATOCRIT 37.5 % (42.0-52.0); HEMOGLOBIN 11.5 g/dl (13.5-17.5); IMMATURE GRANULOCYTE % 0.2 % (0-3.0); LYMPH # 0.8 10^3/uL (1.5-4.5); LYMPH % 19.3 % (24.0-44.0); MEAN CORPUSCULAR HEMOGLOBIN 26.4 pg (27.0-33.0); MEAN CORPUSCULAR HGB CONC 30.7 g/dl (32.0-36.5); MONO # 0.3 10^3/uL (0.0-0.8); MONO % 7.7 % (0.0-5.0); NEUTROPHILS # 2.7 10^3/uL (1.8-7.7); NEUTROPHILS % 62.4 % (36.0-66.0); PLATELET COUNT, AUTOMATED 309 10^3/uL (150-450); RED BLOOD COUNT 4.36 10^6/uL (4.30-6.10); RED CELL DISTRIBUTION WIDTH 14.2 % (11.5-14.5); WHITE BLOOD COUNT 4.3 10^3/uL (4.0-10.0)
[2018-08-30 19:26] LABS: ALBUMIN 3.9 GM/DL (3.2-5.2); ALBUMIN/GLOBULIN RATIO 1.15 (1.00-1.93); ALKALINE PHOSPHATASE 109 U/L (45-117); ALT/SGPT 31 U/L (12-78); ANION GAP 7 MEQ/L (8-16); AST/SGOT 18 U/L (7-37); BILIRUBIN,DIRECT < 0.1 MG/DL (0.0-0.2); BILIRUBIN,TOTAL 0.2 MG/DL (0.2-1.0); BLOOD UREA NITROGEN 15 MG/DL (7-18); CALCIUM LEVEL 9.1 MG/DL (8.5-10.1); CARBON DIOXIDE LEVEL 27 MEQ/L (21-32); CHLORIDE LEVEL 108 MEQ/L (98-107); CREATININE FOR GFR 0.96 MG/DL (0.70-1.30); GLOMERULAR FILTRATION RATE > 60.0 (>60); GLUCOSE, FASTING 111 MG/DL (70-100); POTASSIUM SERUM 3.9 MEQ/L (3.5-5.1); SODIUM LEVEL 142 MEQ/L (136-145); TOTAL PROTEIN 7.3 GM/DL (6.4-8.2)
== END ==
LOC: M SFHCLERA 09:17
DX: G40.409 Other generalized epilepsy and epileptic syndromes, not intractable, without status epilepticus (principal)

== ENCOUNTER → 2018-10-02 | Outpatient (REF) | payer MEDICAID | LOC: M SFHCLERA 09:17 | DX: G40.409 Other generalized epilepsy and epileptic syndromes, not intractable, without status epilepticus (principal) ==

== ENCOUNTER → 2018-10-04 | Outpatient (REF) | payer MEDICAID | LOC: M SFHCLERA 09:14 | DX: G40.409 Other generalized epilepsy and epileptic syndromes, not intractable, without status epilepticus (principal) ==

== ENCOUNTER → 2018-10-11 | Outpatient (REF) | payer MEDICAID ==
[2018-10-11 19:17] LABS: BASO # 0.1 10^3/uL (0.0-0.2); BASO % 1.2 % (0.0-1.0); EOS # 0.6 10^3/uL (0.0-0.50); EOS % 12.5 % (0.0-3.0); HEMATOCRIT 39.4 % (42.0-52.0); HEMOGLOBIN 11.8 g/dl (13.5-17.5); IMMATURE GRANULOCYTE % 0.2 % (0-3.0); LYMPH % 20.3 % (24.0-44.0); MEAN CORPUSCULAR HEMOGLOBIN 26.5 pg (27.0-33.0); MEAN CORPUSCULAR HGB CONC 29.9 g/dl (32.0-36.5); MEAN CORPUSCULAR VOLUME 88.5 fl (80.0-96.0); MONO # 0.4 10^3/uL (0.0-0.8); MONO % 7.2 % (0.0-5.0); NEUTROPHILS % 58.6 % (36.0-66.0); PLATELET COUNT, AUTOMATED 287 10^3/uL (150-450); RED BLOOD COUNT 4.45 10^6/uL (4.30-6.10); WHITE BLOOD COUNT 5.1 10^3/uL (4.0-10.0)
[2018-10-11 19:28] LABS: ALBUMIN 3.7 GM/DL (3.2-5.2); ALBUMIN/GLOBULIN RATIO 1.09 (1.00-1.93); ALKALINE PHOSPHATASE 115 U/L (45-117); ALT/SGPT 32 U/L (12-78); AST/SGOT 15 U/L (7-37); BILIRUBIN,DIRECT < 0.1 MG/DL (0.0-0.2); BILIRUBIN,TOTAL 0.2 MG/DL (0.2-1.0); PHENOBARBITAL LEVEL 25.7 UG/ML (15.0-40.0); TOTAL PROTEIN 7.1 GM/DL (6.4-8.2)
== END ==
LOC: M SFHCLERA 09:23
DX: G40.409 Other generalized epilepsy and epileptic syndromes, not intractable, without status epilepticus (principal)

== ENCOUNTER → 2019-01-21 | Outpatient (REF) | payer MEDICAID ==
[~2019-01-21] MED LIST changes: +FELB600T PO; +SENN8.6C PO; +VITA100066 PO
[2019-01-21 11:36] LABS: BASO % 0.9 % (0.0-1.0); EOS # 0.3 10^3/uL (0.0-0.50); EOS % 7.5 % (0.0-3.0); HEMATOCRIT 36.3 % (42.0-52.0); HEMOGLOBIN 11.6 g/dl (13.5-17.5); LYMPH % 24.1 % (24.0-44.0); MEAN CORPUSCULAR HEMOGLOBIN 28.6 pg (27.0-33.0); MEAN CORPUSCULAR VOLUME 89.4 fl (80.0-96.0); MONO # 0.4 10^3/uL (0.0-0.8); MONO % 8.4 % (0.0-5.0); NEUTROPHILS # 2.5 10^3/uL (1.8-7.7); NEUTROPHILS % 58.6 % (36.0-66.0); PLATELET COUNT, AUTOMATED 329 10^3/uL (150-450); RED BLOOD COUNT 4.06 10^6/uL (4.30-6.10); WHITE BLOOD COUNT 4.3 10^3/uL (4.0-10.0)
[2019-01-21 11:43] LABS: ALBUMIN 3.7 GM/DL (3.2-5.2); ALT/SGPT 27 U/L (12-78); BILIRUBIN,DIRECT < 0.1 MG/DL (0.0-0.2); BILIRUBIN,TOTAL 0.2 MG/DL (0.2-1.0); PHENOBARBITAL LEVEL 27.9 UG/ML (15.0-40.0); TOTAL PROTEIN 7.4 GM/DL (6.4-8.2)
== END ==
LOC: M SFHCLERA 08:39
PROVIDERS: ATTEND Family Medicine
DX: G40.409 Other generalized epilepsy and epileptic syndromes, not intractable, without status epilepticus (principal)

== ENCOUNTER 2019-03-12 17:32 | Emergency (ER) | payer MEDICAID ==
[~2019-03-12] VITALS: Ht 152.4 cm; Wt 50.0 kg
[2019-03-12] MEDS ORDERED: [UNRECOGNIZED DRUG - CODE] (17:45)
[2019-03-12] MEDS ORDERED: LACT10SO3 (17:45)
--- NOTE | 2019-03-12 19:05 | REP ---
Abdomen series: Three views. History: Abdomen pain. Comparison study: January 04, 2018. Findings: Upright chest radiograph shows no evidence of infiltrate or free subdiaphragmatic air. Heart is not enlarged. There is diffuse osteopenia. Supine and erect views of the abdomen demonstrate moderate stool in the proximal and distal colon. Psoas margins are symmetric. Flank stripes are intact. No mass or organomegaly. There is a levoconvex curvature which may reflect positioning. Impression: Moderate stool. Otherwise negative acute abdominal series. Electronically Signed by Dat Mcgrath MD 03/12/2019 07:21 P
[2019-03-12 19:13] VITALS: BP 93/61
== END 2019-03-12 19:24 | disposition home or self-care (01) ==
LOC: M ED 17:32
DX: K59.00 Constipation, unspecified (principal); F70 Mild intellectual disabilities; Z79.899 Other long term (current) drug therapy

== ENCOUNTER → 2019-05-21 | Outpatient (REF) | payer MEDICAID ==
[~2019-05-21] MED LIST changes: +LACT10SO3; +[UNRECOGNIZED DRUG - CODE]
[2019-05-21 11:28] LABS: BASO # 0.1 10^3/uL (0.0-0.2); BASO % 1.1 % (0.0-1.0); EOS # 0.6 10^3/uL (0.0-0.50); EOS % 13.8 % (0.0-3.0); HEMATOCRIT 37.8 % (42.0-52.0); HEMOGLOBIN 11.9 g/dl (13.5-17.5); LYMPH % 23.4 % (24.0-44.0); MEAN CORPUSCULAR HEMOGLOBIN 28.3 pg (27.0-33.0); MEAN CORPUSCULAR HGB CONC 31.5 g/dl (32.0-36.5); MONO # 0.3 10^3/uL (0.0-0.8); MONO % 6.7 % (0.0-5.0); NEUTROPHILS # 2.4 10^3/uL (1.8-7.7); NEUTROPHILS % 54.8 % (36.0-66.0); PLATELET COUNT, AUTOMATED 276 10^3/uL (150-450); WHITE BLOOD COUNT 4.4 10^3/uL (4.0-10.0)
[2019-05-21 11:35] LABS: ALBUMIN 3.6 GM/DL (3.2-5.2); ALT/SGPT 24 U/L (12-78); BILIRUBIN,DIRECT < 0.1 MG/DL (0.0-0.2); BILIRUBIN,TOTAL 0.2 MG/DL (0.2-1.0); PHENOBARBITAL LEVEL 26.5 UG/ML (15.0-40.0); TOTAL PROTEIN 7.2 GM/DL (6.4-8.2)
== END ==
LOC: M SFHCLERA 08:18
PROVIDERS: ATTEND Family Medicine
DX: G40.409 Other generalized epilepsy and epileptic syndromes, not intractable, without status epilepticus (principal)

== ENCOUNTER → 2019-08-20 | Outpatient (REF) | payer MEDICAID ==
[2019-08-20 11:44] LABS: BASO # 0.1 10^3/uL (0.0-0.2); BASO % 1.2 % (0.0-1.0); EOS # 0.4 10^3/uL (0.0-0.5); EOS % 9.6 % (0.0-3.0); HEMATOCRIT 38.9 % (42.0-52.0); LYMPH % 24.1 % (24.0-44.0); MEAN CORPUSCULAR HEMOGLOBIN 27.4 pg (27.0-33.0); MEAN CORPUSCULAR HGB CONC 30.8 g/dl (32.0-36.5); MEAN CORPUSCULAR VOLUME 88.8 fl (80.0-96.0); MONO # 0.4 10^3/uL (0.0-0.8); MONO % 9.1 % (0.0-5.0); NEUTROPHILS # 2.4 10^3/uL (1.5-8.5); NEUTROPHILS % 55.8 % (36.0-66.0); PLATELET COUNT, AUTOMATED 313 10^3/uL (150-450); RED BLOOD COUNT 4.38 10^6/uL (4.30-6.10); WHITE BLOOD COUNT 4.3 10^3/uL (4.0-10.0)
[2019-08-20 12:39] LABS: ALBUMIN 3.8 GM/DL (3.2-5.2); ALT/SGPT 27 U/L (12-78); BILIRUBIN,DIRECT < 0.1 MG/DL (0.0-0.2); BILIRUBIN,TOTAL 0.2 MG/DL (0.2-1.0); PHENOBARBITAL LEVEL 27.4 UG/ML (15.0-40.0); TOTAL PROTEIN 7.4 GM/DL (6.4-8.2)
== END ==
LOC: M SFHCLERA 08:06
PROVIDERS: ATTEND Family Medicine
DX: G40.409 Other generalized epilepsy and epileptic syndromes, not intractable, without status epilepticus (principal)

== ENCOUNTER → 2019-12-23 | Outpatient (REF) | payer MEDICAID ==
[2019-12-23 20:20] LABS: BASO # 0.1 10^3/uL (0.0-0.2); BASO % 1.1 % (0.0-1.0); EOS # 0.4 10^3/uL (0.0-0.5); EOS % 7.8 % (0.0-3.0); HEMATOCRIT 38.3 % (42.0-52.0); HEMOGLOBIN 12.1 g/dl (13.5-17.5); LYMPH # 0.9 10^3/uL (1.5-5.0); LYMPH % 19.2 % (24.0-44.0); MEAN CORPUSCULAR HEMOGLOBIN 27.9 pg (27.0-33.0); MEAN CORPUSCULAR HGB CONC 31.6 g/dl (32.0-36.5); MEAN CORPUSCULAR VOLUME 88.2 fl (80.0-96.0); MONO # 0.5 10^3/uL (0.0-0.8); MONO % 10.7 % (0.0-5.0); NEUTROPHILS # 2.9 10^3/uL (1.5-8.5); PLATELET COUNT, AUTOMATED 267 10^3/uL (150-450); RED BLOOD COUNT 4.34 10^6/uL (4.30-6.10); WHITE BLOOD COUNT 4.8 10^3/uL (4.0-10.0)
[2019-12-23 20:31] LABS: ALBUMIN 3.9 GM/DL (3.2-5.2); ALT/SGPT 27 U/L (12-78); BILIRUBIN,DIRECT < 0.1 MG/DL (0.0-0.2); BILIRUBIN,TOTAL 0.2 MG/DL (0.2-1.0); PHENOBARBITAL LEVEL 27.8 UG/ML (15.0-40.0); TOTAL PROTEIN 7.4 GM/DL (6.4-8.2)
== END ==
LOC: M SFHCLERA 14:31
PROVIDERS: ATTEND Family Medicine
DX: G40.409 Other generalized epilepsy and epileptic syndromes, not intractable, without status epilepticus (principal)

== ENCOUNTER → 2020-08-02 | Outpatient (REF) | payer MEDICAID ==
[~2020-08-02] MED LIST changes: -TAB-TAB PO; +TAB-TAB2 PO
[2020-08-02 18:43] LABS: BASO % 0.2 % (0.0-1.0); EOS # 0.5 10^3/uL (0.0-0.5); EOS % 11.5 % (0.0-3.0); HEMOGLOBIN 12.9 g/dl (13.5-17.5); LYMPH # 1.1 10^3/uL (1.5-5.0); LYMPH % 24.7 % (24.0-44.0); MEAN CORPUSCULAR HEMOGLOBIN 29.8 pg (27.0-33.0); MEAN CORPUSCULAR HGB CONC 31.5 g/dl (32.0-36.5); MEAN CORPUSCULAR VOLUME 94.7 fl (80.0-96.0); MONO # 0.3 10^3/uL (0.0-0.8); MONO % 7.7 % (0.0-5.0); NEUTROPHILS # 2.5 10^3/uL (1.5-8.5); NEUTROPHILS % 55.7 % (36.0-66.0); PLATELET COUNT, AUTOMATED 252 10^3/uL (150-450); RED BLOOD COUNT 4.33 10^6/uL (4.30-6.10); WHITE BLOOD COUNT 4.4 10^3/uL (4.0-10.0)
[2020-08-02 19:04] LABS: ALBUMIN 3.8 GM/DL (3.2-5.2); ALT/SGPT 31 U/L (12-78); BILIRUBIN,TOTAL 0.2 MG/DL (0.2-1.0); BLOOD UREA NITROGEN 12 MG/DL (7-18); CALCIUM LEVEL 9.5 MG/DL (8.5-10.1); CARBON DIOXIDE LEVEL 28 MEQ/L (21-32); CHLORIDE LEVEL 111 MEQ/L (98-107); CREATININE FOR GFR 0.94 MG/DL (0.70-1.30); GLOMERULAR FILTRATION RATE > 60.0 (>60); GLUCOSE, FASTING 92 MG/DL (70-100); PHENOBARBITAL LEVEL 24.7 UG/ML (15.0-40.0); POTASSIUM SERUM 4.3 MEQ/L (3.5-5.1); SODIUM LEVEL 142 MEQ/L (136-145); TOTAL PROTEIN 7.1 GM/DL (6.4-8.2)
== END ==
LOC: M LAB REF 17:57
PROVIDERS: ATTEND Family Medicine
DX: G80.9 Cerebral palsy, unspecified (principal); G40.89 Other seizures

== ENCOUNTER → 2021-08-04 | Outpatient (CLI) | payer MEDICAID ==
[~2021-08-04] MED LIST changes: -LISI-542 PO; +LISI-898 PO
--- NOTE | 2021-08-05 00:31 | ECGEPIP ---
[facility] Test Date: 2021-08-04 Pat Name: DAIJA MARTINEZ Department: Room: - Gender: Male Keno Writer: rf : 1985 Requested By: Zahra Ferrer Order Number: [id number] Reading MD: Andrés Rueda Measurements Intervals [place] Rate: 98 P: 67 IA: 122 QRS: 60 QRSD: 84 T: 31 QT: 322 QTc: 411 Interpretive Statements Normal sinus rhythm Minimal voltage criteria for LVH, may be normal variant ( Sokolow-Day ) No prior tracing in the system Electronically Signed on 08-05-2021 0:31:28 EDT by Andrés Rueda
== END ==
LOC: M EKG 08:33
PROVIDERS: ATTEND Psychiatry & Neurology Neurology
DX: G40.909 Epilepsy, unspecified, not intractable, without status epilepticus (principal)

== ENCOUNTER → 2022-01-16 | Outpatient (CLI) | payer MEDICAID ==
[~2022-01-16] MED LIST changes: -LISI-898 PO; +LISI5TAB11 PO
[2022-01-16 14:17] LABS: HEMATOCRIT 39.2 % (42.0-52.0)
[2022-01-16 14:48] LABS: HEMOGLOBIN A1c 4.8 %
[2022-01-16 14:50] LABS: ALBUMIN 3.7 GM/DL (3.2-5.2); ALT/SGPT 31 U/L (12-78); BILIRUBIN,TOTAL 0.3 MG/DL (0.2-1.0); BLOOD UREA NITROGEN 18 MG/DL (7-18); CALCIUM LEVEL 9.3 MG/DL (8.5-10.1); CARBON DIOXIDE LEVEL 23 MEQ/L (21-32); CHLORIDE LEVEL 109 MEQ/L (98-107); CHOLESTEROL LEVEL 192 MG/DL (<200); CHOLESTEROL RISK RATIO 4.682 (<5); CREATININE FOR GFR 0.89 MG/DL (0.70-1.30); FREE T4 0.87 NG/DL (0.76-1.46); GLOMERULAR FILTRATION RATE > 60.0 (>60); GLUCOSE, FASTING 87 MG/DL (70-100); HDL CHOLESTEROL 41 MG/DL (>40); LDL CHOLESTEROL 120 MG/DL (<100); NON-HDL-C 151 MG/DL; PHENOBARBITAL LEVEL 28.1 UG/ML (15.0-40.0); POTASSIUM SERUM 4.2 MEQ/L (3.5-5.1); SODIUM LEVEL 139 MEQ/L (136-145); TOTAL PROTEIN 7.3 GM/DL (6.4-8.2); TRIGLYCERIDES LEVEL 156 MG/DL (<150)
[2022-01-16 14:53] LABS: PTH INTACT 24.6 PG/ML (18.5-88.0); TOTAL 25(OH) VITAMIN D 11.9 NG/ML (30.0-100.0)
[2022-01-16 14:54] LABS: VITAMIN B12 LEVEL 315 PG/ML (247-911)
[2022-01-19 12:50] LABS: ALBUMIN 4.38 GM/DL (3.29-5.55); ALPHA-1-GLOBULIN % 5.1 % (2.9-4.9); ALPHA-1-GLOBULINS 0.37 GM/DL (0.17-0.41); ALPHA-2-GLOBULINS 0.82 GM/DL (0.42-0.99); ALPHA-2-GLOBULINS % 11.2 % (7.1-11.8); BETA-1-GLOBULINS 0.39 GM/DL (0.28-0.60); BETA-1-GLOBULINS % 5.4 % (4.7-7.2); BETA-2-GLOBULINS 0.31 GM/DL (0.19-0.55); BETA-2-GLOBULINS % 4.3 % (3.2-6.5); GAMMA GLOBULINS 1.02 GM/DL (0.65-1.58)
== END ==
LOC: M PLALAB 08:38
PROVIDERS: ATTEND Family Medicine
DX: I10 Essential (primary) hypertension (principal); E55.9 Vitamin D deficiency, unspecified; G40.309 Generalized idiopathic epilepsy and epileptic syndromes, not intractable, without status epilepticus; D75.89 Other specified diseases of blood and blood-forming organs

== ENCOUNTER → 2022-01-26 | Outpatient (CLI) | payer MEDICAID | LOC: M RAD 10:56 | PROVIDERS: ATTEND Family Medicine | DX: N20.0 Calculus of kidney (principal); N28.1 Cyst of kidney, acquired ==

== ENCOUNTER → 2022-03-21 | Outpatient (CLI) | payer MEDICAID | LOC: M WHC 14:41 | PROVIDERS: ATTEND Family Medicine | DX: M81.0 Age-related osteoporosis without current pathological fracture (principal); M85.852 Other specified disorders of bone density and structure, left thigh ==

== ENCOUNTER → 2022-05-04 | Outpatient (CLI) | payer MEDICAID ==
[~2022-05-04] MED LIST changes: +ALBU2.5V10 INH; -ALBU83IN INH
[2022-05-04 10:22] LABS: EOS # 0.6 10^3/uL (0.0-0.5); EOS % 11.4 % (0.0-3.0); HEMATOCRIT 38.6 % (42.0-52.0); HEMOGLOBIN 12.3 g/dl (13.5-17.5); LYMPH # 0.7 10^3/uL (1.5-5.0); LYMPH % 14.5 % (24.0-44.0); MEAN CORPUSCULAR HEMOGLOBIN 30.3 pg (27.0-33.0); MEAN CORPUSCULAR HGB CONC 31.9 g/dl (32.0-36.5); MEAN CORPUSCULAR VOLUME 95.1 fl (80.0-96.0); MONO # 0.3 10^3/uL (0.0-0.8); NEUTROPHILS # 3.2 10^3/uL (1.5-8.5); NEUTROPHILS % 66.9 % (36.0-66.0); PLATELET COUNT, AUTOMATED 274 10^3/uL (150-450); RED BLOOD COUNT 4.06 10^6/uL (4.30-6.10); WHITE BLOOD COUNT 4.8 10^3/uL (4.0-10.0)
[2022-05-04 10:23] LABS: HEMATOCRIT 38.5 % (42.0-52.0)
[2022-05-04 11:38] LABS: ALBUMIN 3.7 GM/DL (3.2-5.2); BLOOD UREA NITROGEN 21 MG/DL (7-18); CALCIUM LEVEL 9.2 MG/DL (8.5-10.1); CARBON DIOXIDE LEVEL 24 MEQ/L (21-32); CHLORIDE LEVEL 111 MEQ/L (98-107); CREATININE FOR GFR 1.08 MG/DL (0.70-1.30); GLOMERULAR FILTRATION RATE > 60.0 (>60); GLUCOSE, FASTING 89 MG/DL (70-100); PHOSPHORUS LEVEL 3.4 MG/DL (2.5-4.9); POTASSIUM SERUM 4.4 MEQ/L (3.5-5.1); PTH INTACT 21.5 PG/ML (18.5-88.0); SODIUM LEVEL 140 MEQ/L (136-145); TOTAL 25(OH) VITAMIN D 34.9 NG/ML (30.0-100.0); VITAMIN B12 LEVEL 769 PG/ML (247-911)
== END ==
LOC: M PLALAB 07:52
PROVIDERS: ATTEND Family Medicine
DX: E53.8 Deficiency of other specified B group vitamins (principal); E55.9 Vitamin D deficiency, unspecified

== ENCOUNTER → 2022-12-11 | Outpatient (CLI) | payer MEDICAID ==
[2022-12-11 11:27] LABS: PHENOBARBITAL LEVEL 24.8 UG/ML (15.0-40.0)
[2022-12-11 11:29] LABS: MAGNESIUM LEVEL 1.7 MG/DL (1.8-2.4)
[2022-12-11 11:31] LABS: ALBUMIN 3.9 G/DL (3.2-5.2); ALKALINE PHOSPHATASE 102 U/L (46-116); ALT/SGPT 26 U/L (7.0-40); AST/SGOT 14 U/L (<34); BILIRUBIN,TOTAL 0.3 MG/DL (0.3-1.2); BLOOD UREA NITROGEN 24 MG/DL (9-23); C REACTIVE PROTEIN QUANTITATIV < 0.40 MG/DL (<1.0); CALCIUM LEVEL 9.7 MG/DL (8.5-10.1); CARBON DIOXIDE LEVEL 25 MMOL/L (20-31); CHLORIDE LEVEL 111 MMOL/L (98-107); CREATININE FOR GFR 1.01 MG/DL (0.70-1.30); GLOMERULAR FILTRATION RATE > 60.0 (>60); GLUCOSE, FASTING 91 MG/DL (60-100); PHOSPHORUS LEVEL 2.9 MG/DL (2.5-4.9); POTASSIUM SERUM 5.1 MMOL/L (3.5-5.1); PTH INTACT 25.7 PG/ML (18.5-88.0); SODIUM LEVEL 141 MMOL/L (136-145)
[2022-12-12 11:13] LABS: APOLIPOPROTEIN A-1 116 mg/dL (101-178); APOLIPOPROTEIN B 110 mg/dL (<90); APOLIPOPROTEIN B/A-1 RATIO 0.9 ratio (0.0-0.7); TISSUE TRANSGLUTAMINASE IgA <2 U/mL (0-3)
== END ==
LOC: M PLALAB 08:03
PROVIDERS: ATTEND Family Medicine
DX: I10 Essential (primary) hypertension (principal); E55.9 Vitamin D deficiency, unspecified; E78.2 Mixed hyperlipidemia; M81.0 Age-related osteoporosis without current pathological fracture; G40.309 Generalized idiopathic epilepsy and epileptic syndromes, not intractable, without status epilepticus

== ENCOUNTER → 2023-04-11 | Outpatient (CLI) | payer MEDICAID | LOC: M SLEEP 13:41 | PROVIDERS: ATTEND Psychiatry & Neurology Neurology | DX: G40.909 Epilepsy, unspecified, not intractable, without status epilepticus (principal); R94.01 Abnormal electroencephalogram [EEG] ==

== ENCOUNTER → 2023-09-30 | Outpatient (REF) | payer MEDICAID | LOC: M SFHCPLAZ 16:27 | PROVIDERS: ATTEND Family Medicine | DX: Z53.9 Procedure and treatment not carried out, unspecified reason (principal) ==

== ENCOUNTER → 2023-10-19 | Outpatient (CLI) | payer MEDICAID | LOC: M RAD 13:19 | PROVIDERS: ATTEND Physician Assistant Medical | DX: M79.671 Pain in right foot (principal); S92.411A Displaced fracture of proximal phalanx of right great toe, initial encounter for closed fracture; X58.XXXA Exposure to other specified factors, initial encounter; Y92.9 Unspecified place or not applicable; Y93.9 Activity, unspecified; Y99.9 Unspecified external cause status ==

== ENCOUNTER → 2024-01-13 | Outpatient (CLI) | payer MEDICAID | LOC: M PLAIMG 13:52 | PROVIDERS: ATTEND Physician Assistant Medical | DX: M25.512 Pain in left shoulder (principal) ==

== ENCOUNTER → 2024-01-30 | Outpatient (CLI) | payer MEDICAID ==
[2024-01-30 16:13] LABS: EOS # 0.3 10^3/uL (0.0-0.5); EOS % 6.3 % (0.0-3.0); HEMATOCRIT 39.1 % (42.0-52.0); HEMOGLOBIN 13.3 g/dl (13.5-17.5); LYMPH # 0.8 10^3/uL (1.5-5.0); LYMPH % 18.9 % (24.0-44.0); MEAN CORPUSCULAR HEMOGLOBIN 30.9 pg (27.0-33.0); MEAN CORPUSCULAR VOLUME 90.9 fl (80.0-96.0); MONO # 0.3 10^3/uL (0.0-0.8); NEUTROPHILS # 2.8 10^3/uL (1.5-8.5); NEUTROPHILS % 67.6 % (36.0-66.0); PLATELET COUNT, AUTOMATED 274 10^3/uL (150-450); WHITE BLOOD COUNT 4.1 10^3/uL (4.0-10.0)
[2024-01-30 16:21] LABS: ALBUMIN 3.7 G/DL (3.2-5.2); ALKALINE PHOSPHATASE 92 U/L (46-116); ALT/SGPT 21 U/L (7.0-40); AST/SGOT < 8 U/L (<34); BILIRUBIN,TOTAL 0.2 MG/DL (0.3-1.2); BLOOD UREA NITROGEN 12 MG/DL (9-23); CALCIUM LEVEL 8.8 MG/DL (8.5-10.1); CARBON DIOXIDE LEVEL 24 MMOL/L (20-31); CHLORIDE LEVEL 110 MMOL/L (98-107); CREATININE FOR GFR 0.79 MG/DL (0.70-1.30); GLOMERULAR FILTRATION RATE > 60.0 (>60); GLUCOSE, FASTING 104 MG/DL (60-100); POTASSIUM SERUM 4.1 MMOL/L (3.5-5.1); PTH INTACT 23.7 PG/ML (18.5-88.0); SODIUM LEVEL 136 MMOL/L (136-145); TOTAL PROTEIN 6.8 G/DL (5.7-8.2)
[2024-01-30 16:23] LABS: TOTAL 25(OH) VITAMIN D 46.2 NG/ML (20.0-100.0)
[2024-01-30 16:24] LABS: FERRITIN 16.6 NG/ML (10.5-307.3)
== END ==
LOC: M PLALAB 13:50
PROVIDERS: ATTEND Family Medicine
DX: E55.9 Vitamin D deficiency, unspecified (principal); D50.9 Iron deficiency anemia, unspecified; I10 Essential (primary) hypertension

== ENCOUNTER 2024-02-06 14:30 | Outpatient (CLI) | payer MEDICAID ==
[2024-02-06 14:30] VITALS: BP 111/75; O2SAT 97
[2024-02-06] MEDS: ZOLEDRONIC ACID 5 MG in IV 1 EA IV ONE (14:48)
[2024-02-06 15:30] VITALS: BP 116/72; O2SAT 97
== END 2024-02-06 15:35 ==
LOC: M INFU 14:30
PROVIDERS: ATTEND Physician Assistant Medical
DX: M81.0 Age-related osteoporosis without current pathological fracture (principal); Z88.6 Allergy status to analgesic agent
CPT/HCPCS: 96413; J3489

== ENCOUNTER → 2024-03-23 | Outpatient (REF) | payer MEDICAID | LOC: M SFHCPLAZ 15:01 | PROVIDERS: ATTEND Family Medicine | DX: D50.9 Iron deficiency anemia, unspecified (principal); E55.9 Vitamin D deficiency, unspecified; E53.8 Deficiency of other specified B group vitamins; Z53.9 Procedure and treatment not carried out, unspecified reason ==

== ENCOUNTER 2024-03-30 22:20 | Emergency (ER) | payer MEDICAID ==
[~2024-03-30] VITALS: Ht 149.9 cm; Wt 51.8 kg
[~2024-03-30 22:20] MED LIST changes: -LACT10SO3; +LACT10SO3 PO
[2024-03-31 00:51] LABS: BASO % 0.1 % (0.0-1.0); HEMATOCRIT 45.2 % (42.0-52.0); HEMOGLOBIN 15.6 g/dl (13.5-17.5); LYMPH # 0.3 10^3/uL (1.5-5.0); LYMPH % 1.6 % (24.0-44.0); MEAN CORPUSCULAR HGB CONC 34.5 g/dl (32.0-36.5); MEAN CORPUSCULAR VOLUME 89.7 fl (80.0-96.0); MONO # 0.8 10^3/uL (0.0-0.8); MONO % 4.8 % (2.0-8.0); NEUTROPHILS # 14.6 10^3/uL (1.5-8.5); NEUTROPHILS % 92.9 % (36.0-66.0); PLATELET COUNT, AUTOMATED 308 10^3/uL (150-450); RED BLOOD COUNT 5.04 10^6/uL (4.30-6.10); WHITE BLOOD COUNT 15.8 10^3/uL (4.0-10.0)
[2024-03-31 01:18] LABS: ALBUMIN 3.8 G/DL (3.2-5.2); ALKALINE PHOSPHATASE 110 U/L (46-116); ALT/SGPT 26 U/L (7.0-40); AST/SGOT 22 U/L (<34); BILIRUBIN,DIRECT 0.1 MG/DL (<0.4); BILIRUBIN,TOTAL 0.3 MG/DL (0.3-1.2); BLOOD UREA NITROGEN 33 MG/DL (9-23); CALCIUM LEVEL 8.4 MG/DL (8.5-10.1); CARBON DIOXIDE LEVEL 24 MMOL/L (20-31); CHLORIDE LEVEL 102 MMOL/L (98-107); CK-MB VALUE MASS < 1.0 NG/ML (<3.6); CREATININE FOR GFR 0.92 MG/DL (0.70-1.30); GLOMERULAR FILTRATION RATE > 60.0 (>60); GLUCOSE, FASTING 184 MG/DL (60-100); POTASSIUM SERUM 3.6 MMOL/L (3.5-5.1); SODIUM LEVEL 138 MMOL/L (136-145); TOTAL PROTEIN 7.6 G/DL (5.7-8.2)
[2024-03-31 01:20] LABS: THYROID STIMULATING HORMONE 0.389 uIU/ML (0.55-4.78)
[2024-03-31 01:22] LABS: CPK CREATINE PHOSPHOKINASE 28 U/L (46-171); MB/CK RELATIVE INDEX 3.57 (< OR =4)
[2024-03-31] MEDS: NS 500 ML IV ONE (02:05)
[2024-03-31] MEDS ORDERED: ONDANSETRON 4MG 2ML VIAL As Ordered ONE (02:15)
[2024-03-31] MEDS: ACETAMINOPHEN *IV* 500 MG in IV 1 EA IV ONE (02:17)
[2024-03-31] MEDS: FAMOTIDINE 20MG/2ML VIAL IVP ONE (02:44)
[2024-03-31] MEDS: ONDANSETRON 4MG 2ML VIAL IV ONE (02:44)
[2024-03-31] MEDS ORDERED: ONDA4TAB6 PO (04:44)
[2024-03-31 05:00] VITALS: BP 124/88; TEMP 98.9; O2SAT 98
== END 2024-03-31 05:03 | disposition home or self-care (01) ==
LOC: M ED 22:20
DX: R11.10 Vomiting, unspecified (principal); R06.6 Hiccough; B97.81 Human metapneumovirus as the cause of diseases classified elsewhere; G40.909 Epilepsy, unspecified, not intractable, without status epilepticus; J45.909 Unspecified asthma, uncomplicated; G80.9 Cerebral palsy, unspecified; K59.00 Constipation, unspecified; Z79.52 Long term (current) use of systemic steroids; Z79.83 Long term (current) use of bisphosphonates; Z79.899 Other long term (current) drug therapy
CPT/HCPCS: 71045; 74176; 80048; 80076; 82550; 82553; 83605; 84443; 84484; 85025; 87040; 87486; 87581; 87633; 87798; 96365; 96366; 96375; 99284; J0131; J2405; S0028

== ENCOUNTER 2024-04-02 08:39 | Inpatient (IN) | payer MEDICAID ==
[~2024-04-02] VITALS: Ht 149.9 cm; Wt 51.8 kg
[~2024-04-02 08:39] MED LIST changes: +ONDA4TAB6 PO
[2024-04-02] MEDS: NS 1,000 ML IV ONE (09:35)
[2024-04-02 10:06] LABS: BASO % 0.1 % (0.0-1.0); HEMOGLOBIN 13.2 g/dl (13.5-17.5); LYMPH # 0.5 10^3/uL (1.5-5.0); LYMPH % 3.7 % (24.0-44.0); MEAN CORPUSCULAR HEMOGLOBIN 30.6 pg (27.0-33.0); MEAN CORPUSCULAR HGB CONC 33.8 g/dl (32.0-36.5); MEAN CORPUSCULAR VOLUME 90.3 fl (80.0-96.0); MONO % 8.5 % (2.0-8.0); NEUTROPHILS # 10.6 10^3/uL (1.5-8.5); NEUTROPHILS % 87.3 % (36.0-66.0); PLATELET COUNT, AUTOMATED 318 10^3/uL (150-450); RED BLOOD COUNT 4.32 10^6/uL (4.30-6.10); WHITE BLOOD COUNT 12.2 10^3/uL (4.0-10.0)
[2024-04-02 10:30] LABS: LIPASE 29 U/L (12-53)
[2024-04-02 10:34] LABS: ALKALINE PHOSPHATASE 91 U/L (46-116); ALT/SGPT 23 U/L (7.0-40); AST/SGOT 12 U/L (<34); BILIRUBIN,DIRECT 0.1 MG/DL (<0.4); BILIRUBIN,TOTAL 0.3 MG/DL (0.3-1.2); BLOOD UREA NITROGEN 27 MG/DL (9-23); CALCIUM LEVEL 8.6 MG/DL (8.5-10.1); CARBON DIOXIDE LEVEL 20 MMOL/L (20-31); CHLORIDE LEVEL 108 MMOL/L (98-107); GLOMERULAR FILTRATION RATE > 60.0 (>60); GLUCOSE, FASTING 117 MG/DL (60-100); POTASSIUM SERUM 3.9 MMOL/L (3.5-5.1); SODIUM LEVEL 140 MMOL/L (136-145)
[2024-04-02] MEDS ORDERED: FLEEENE12 PR (11:33)
[2024-04-02] MEDS ORDERED: VITA100T15 PO (11:33)
[2024-04-02] MEDS ORDERED: D3 H2000 PO (11:33)
[2024-04-02] MEDS ORDERED: ACET-683 PO (11:33)
[2024-04-02] MEDS ORDERED: BUDE0.5S6 INH (11:33)
[2024-04-02] MEDS ORDERED: TAB-TAB3 PO (11:33)
[2024-04-02] MEDS ORDERED: MELA5TAB58 PO (11:33)
[2024-04-02] MEDS ORDERED: ONDA4TAB6 PO (11:33)
[2024-04-02] MEDS ORDERED: IBUP200C25 PO (11:33)
[2024-04-02] MEDS ORDERED: OMEP-173 PO (11:33)
[2024-04-02] MEDS ORDERED: CETI-24 PO (11:33)
[2024-04-02] MEDS ORDERED: LISI2.5T8 PO (11:33)
[2024-04-02 11:35] LABS: PROCALCITONIN 0.06 ng/ml
[2024-04-02] MEDS ORDERED: HOME MED LIST COMPLETE! XX SCH (11:35)
[2024-04-02] MEDS: NS 1,000 ML IV SCH (11:43)
[2024-04-02] MEDS ORDERED: ONDANSETRON 4MG ORAL DISINTEGRATING TAB PO PRN (12:55)
[2024-04-02 15:00] VITALS: BP 130/84; TEMP 98.8; O2SAT 92
[2024-04-02] MEDS: cefTRIAXone SOD 1 GM in D5W MINI-BAG PLUS 50 ML IV SCH (15:24)
[2024-04-02] MEDS: OMEPRAZOLE 20MG CAP PO SCH (15:31)
[2024-04-02] MEDS: PHENobarbitaL 30 MG TAB PO SCH (15:31)
[2024-04-02] MEDS: LACTULOSE 20GM/30ML SYRUP UDC PO SCH (15:31)
[2024-04-02] MEDS: LISINOPRIL *2.5 MG* TAB PO SCH (15:32)
[2024-04-02] MEDS: VITAMIN D 1,000 INTERNATIONAL UNITS TABLET PO SCH (15:32)
[2024-04-02] MEDS: MULTIVITAMINS/MINERALS THERAP 1 TAB PO ONE (15:32)
[2024-04-02] MEDS: CETIRIZINE (ZyrTEC) 10 MG TAB PO SCH (15:32)
[2024-04-02] MEDS: TOPIRAMATE (TopAMAX) 100 MG TAB PO SCH (15:32)
[2024-04-02] MEDS: AZITHROMYCIN INJ 500 MG, VIAL MATE ADAPTER 1 EACH in NS 250 ML IV SCH (16:33)
[2024-04-02 20:00] VITALS: BP 130/94; TEMP 100.6; O2SAT 96
[2024-04-02] MEDS: ALBUTEROL SULFATE 2.5MG/0.5ML INH NEB SOLN INH PRN (20:36)
[2024-04-02] MEDS: BUDESONIDE 0.5 MG/2 ML INHALATION SUSPENSION INH PRN (20:36)
[2024-04-02] MEDS: FELBAMATE 600 MG PO SCH (21:00)
[2024-04-02] MEDS ORDERED: PILL CUTTER 1 EACH XX PRN (21:45)
[2024-04-02 22:21] VITALS: TEMP 98.8
[2024-04-02 22:48] VITALS: TEMP 100.3
[2024-04-03 04:18] VITALS: BP 122/82; TEMP 99.9; O2SAT 95
[2024-04-03 07:46] LABS: ALBUMIN 2.5 G/DL (3.2-5.2); ALKALINE PHOSPHATASE 73 U/L (46-116); ALT/SGPT 17 U/L (7.0-40); AST/SGOT 10 U/L (<34); BILIRUBIN,TOTAL 0.3 MG/DL (0.3-1.2); BLOOD UREA NITROGEN 18 MG/DL (9-23); CALCIUM LEVEL 7.5 MG/DL (8.5-10.1); CARBON DIOXIDE LEVEL 18 MMOL/L (20-31); CHLORIDE LEVEL 113 MMOL/L (98-107); CREATININE FOR GFR 0.58 MG/DL (0.70-1.30); GLOMERULAR FILTRATION RATE > 60.0 (>60); GLUCOSE, FASTING 81 MG/DL (60-100); POTASSIUM SERUM 3.7 MMOL/L (3.5-5.1); SODIUM LEVEL 141 MMOL/L (136-145); TOTAL PROTEIN 5.7 G/DL (5.7-8.2)
[2024-04-03 08:54] LABS: BASO % 0.1 % (0.0-1.0); EOS # 0.1 10^3/uL (0.0-0.5); EOS % 0.7 % (0.0-3.0); HEMATOCRIT 34.4 % (42.0-52.0); HEMOGLOBIN 11.5 g/dl (13.5-17.5); LYMPH # 0.9 10^3/uL (1.5-5.0); LYMPH % 12.7 % (24.0-44.0); MEAN CORPUSCULAR HEMOGLOBIN 30.3 pg (27.0-33.0); MEAN CORPUSCULAR HGB CONC 33.4 g/dl (32.0-36.5); MEAN CORPUSCULAR VOLUME 90.5 fl (80.0-96.0); MONO # 0.5 10^3/uL (0.0-0.8); MONO % 7.3 % (2.0-8.0); NEUTROPHILS # 5.5 10^3/uL (1.5-8.5); NEUTROPHILS % 78.6 % (36.0-66.0); PLATELET COUNT, AUTOMATED 236 10^3/uL (150-450)
[2024-04-03] MEDS: AZITHROMYCIN 250MG TABLET PO SCH (10:00)
[2024-04-03] MEDS: SODIUM BICARBONATE 100 MEQ in D5W 1,000 ML IV SCH (11:12)
[2024-04-03 14:00] VITALS: BP 123/85; TEMP 98.6; O2SAT 96
[2024-04-03] MEDS: SENOKOT S TAB PO PRN (15:36)
[2024-04-03] MEDS: FLEET ENEMA PR PRN (18:19)
[2024-04-03 21:23] VITALS: BP 98/60; TEMP 99.6; O2SAT 96
[2024-04-04 05:50] VITALS: BP 121/81; TEMP 99.2; O2SAT 96
[2024-04-04 09:14] LABS: BLOOD UREA NITROGEN 13 MG/DL (9-23); CALCIUM LEVEL 7.1 MG/DL (8.5-10.1); CARBON DIOXIDE LEVEL 23 MMOL/L (20-31); CHLORIDE LEVEL 107 MMOL/L (98-107); CREATININE FOR GFR 0.54 MG/DL (0.70-1.30); GLOMERULAR FILTRATION RATE > 60.0 (>60); GLUCOSE, FASTING 113 MG/DL (60-100); MAGNESIUM LEVEL 1.6 MG/DL (1.8-2.4); POTASSIUM SERUM 3.1 MMOL/L (3.5-5.1); SODIUM LEVEL 141 MMOL/L (136-145)
[2024-04-04 14:00] VITALS: BP 119/78; TEMP 98.8; O2SAT 90
[2024-04-04] MEDS: POTASSIUM CHLORIDE 10MEQ SR TABLET PO SCH (15:18)
[2024-04-04] MEDS: MAG SULF 1GM/100ML (MAG RUN) 1 GM in IV 1 EA IV SCH (15:19)
[2024-04-04 21:30] VITALS: BP 128/93; TEMP 100.2; O2SAT 90
[2024-04-05 05:42] VITALS: BP 129/85; TEMP 98.8; O2SAT 96
[2024-04-05 06:52] LABS: BASO % 0.3 % (0.0-1.0); EOS # 0.2 10^3/uL (0.0-0.5); EOS % 3.9 % (0.0-3.0); HEMATOCRIT 34.5 % (42.0-52.0); HEMOGLOBIN 11.9 g/dl (13.5-17.5); LYMPH % 16.4 % (24.0-44.0); MEAN CORPUSCULAR HEMOGLOBIN 30.8 pg (27.0-33.0); MEAN CORPUSCULAR HGB CONC 34.5 g/dl (32.0-36.5); MEAN CORPUSCULAR VOLUME 89.4 fl (80.0-96.0); MONO # 0.5 10^3/uL (0.0-0.8); NEUTROPHILS # 4.2 10^3/uL (1.5-8.5); NEUTROPHILS % 69.9 % (36.0-66.0); PLATELET COUNT, AUTOMATED 278 10^3/uL (150-450); RED BLOOD COUNT 3.86 10^6/uL (4.30-6.10)
[2024-04-05 07:25] LABS: ALBUMIN 2.5 G/DL (3.2-5.2); ALKALINE PHOSPHATASE 79 U/L (46-116); ALT/SGPT 18 U/L (7.0-40); AST/SGOT 11 U/L (<34); BILIRUBIN,TOTAL < 0.2 MG/DL (0.3-1.2); BLOOD UREA NITROGEN 9 MG/DL (9-23); CALCIUM LEVEL 7.8 MG/DL (8.5-10.1); CARBON DIOXIDE LEVEL 22 MMOL/L (20-31); CHLORIDE LEVEL 108 MMOL/L (98-107); GLOMERULAR FILTRATION RATE > 60.0 (>60); GLUCOSE, FASTING 98 MG/DL (60-100); MAGNESIUM LEVEL 2.2 MG/DL (1.8-2.4); POTASSIUM SERUM 3.6 MMOL/L (3.5-5.1); SODIUM LEVEL 140 MMOL/L (136-145); TOTAL PROTEIN 5.7 G/DL (5.7-8.2)
[2024-04-05] MEDS: ACETAMINOPHEN TAB 650MG DOSE (2X325MG) PO PRN (09:09)
[2024-04-05 09:10] VITALS: BP 138/92
[2024-04-05] MEDS: POTASSIUM CHLORIDE 10MEQ SR TABLET PO SCH (09:10)
[2024-04-05] MEDS ORDERED: AZIT-12 PO (11:53)
[2024-04-05] MEDS ORDERED: CEFD300CAP PO (11:53)
== END 2024-04-05 14:43 | disposition home or self-care (01) | DRG 720 ==
LOC: M ED 08:39 → M ED INP 12:54 → M MSPAV 14:54
PROVIDERS: ADMIT Hospitalist; ATTEND Hospitalist
DX: A41.9 Sepsis, unspecified organism (principal); J12.3 Human metapneumovirus pneumonia; E87.20 Acidosis, unspecified; G80.9 Cerebral palsy, unspecified; G40.909 Epilepsy, unspecified, not intractable, without status epilepticus; I10 Essential (primary) hypertension; K21.9 Gastro-esophageal reflux disease without esophagitis; E86.0 Dehydration; K59.09 Other constipation; Z79.899 Other long term (current) drug therapy

== ENCOUNTER → 2024-04-13 | Outpatient (CLI) | payer MEDICAID ==
[~2024-04-13] MED LIST changes: +ACET-683 PO; +AZIT-12 PO; +BUDE0.5S6 INH; +CEFD300CAP PO; +CETI-24 PO; +D3 H2000 PO; +FLEEENE12 PR; +IBUP200C25 PO; +LISI2.5T8 PO; +MELA5TAB58 PO; +OMEP-173 PO; +TAB-TAB3 PO; +VITA100T15 PO
[2024-04-13 18:00] LABS: BASO % 0.3 % (0.0-1.0); EOS # 0.2 10^3/uL (0.0-0.5); EOS % 5.3 % (0.0-3.0); HEMATOCRIT 35.8 % (42.0-52.0); HEMOGLOBIN 11.7 g/dl (13.5-17.5); LYMPH # 0.8 10^3/uL (1.5-5.0); LYMPH % 20.6 % (24.0-44.0); MEAN CORPUSCULAR HEMOGLOBIN 30.4 pg (27.0-33.0); MEAN CORPUSCULAR HGB CONC 32.7 g/dl (32.0-36.5); MONO # 0.4 10^3/uL (0.0-0.8); MONO % 9.7 % (2.0-8.0); NEUTROPHILS # 2.5 10^3/uL (1.5-8.5); NEUTROPHILS % 63.6 % (36.0-66.0); PLATELET COUNT, AUTOMATED 396 10^3/uL (150-450); RED BLOOD COUNT 3.85 10^6/uL (4.30-6.10); WHITE BLOOD COUNT 3.9 10^3/uL (4.0-10.0)
[2024-04-13 18:32] LABS: ALKALINE PHOSPHATASE 80 U/L (46-116); ALT/SGPT 20 U/L (7.0-40); AST/SGOT < 8 U/L (<34); BILIRUBIN,TOTAL 0.2 MG/DL (0.3-1.2); BLOOD UREA NITROGEN 14 MG/DL (9-23); CALCIUM LEVEL 8.9 MG/DL (8.5-10.1); CARBON DIOXIDE LEVEL 20 MMOL/L (20-31); CHLORIDE LEVEL 110 MMOL/L (98-107); CREATININE FOR GFR 0.75 MG/DL (0.70-1.30); GLOMERULAR FILTRATION RATE > 60.0 (>60); GLUCOSE, FASTING 96 MG/DL (60-100); POTASSIUM SERUM 4.2 MMOL/L (3.5-5.1); SODIUM LEVEL 139 MMOL/L (136-145); TOTAL PROTEIN 6.2 G/DL (5.7-8.2)
== END ==
LOC: M PLALAB 14:52
PROVIDERS: ATTEND Physician Assistant Medical
DX: J18.9 Pneumonia, unspecified organism (principal)

== ENCOUNTER → 2024-05-07 | Outpatient (CLI) | payer MEDICAID ==
[~2024-05-07] MED LIST changes: +ONDA-282 PO; -ONDA4TAB6 PO
== END ==
LOC: M RAD 08:47
PROVIDERS: ATTEND Physician Assistant Medical
DX: J18.9 Pneumonia, unspecified organism (principal)

== ENCOUNTER → 2024-06-29 | Outpatient (CLI) | payer MEDICAID ==
[2024-06-29 15:23] LABS: BASO % 0.3 % (0.0-1.0); EOS # 0.2 10^3/uL (0.0-0.5); EOS % 5.7 % (0.0-3.0); HEMATOCRIT 38.4 % (42.0-52.0); HEMOGLOBIN 12.5 g/dl (13.5-17.5); LYMPH # 0.9 10^3/uL (1.5-5.0); LYMPH % 27.4 % (24.0-44.0); MEAN CORPUSCULAR HGB CONC 32.6 g/dl (32.0-36.5); MEAN CORPUSCULAR VOLUME 92.1 fl (80.0-96.0); MONO # 0.3 10^3/uL (0.0-0.8); MONO % 10.2 % (2.0-8.0); NEUTROPHILS # 1.8 10^3/uL (1.5-8.5); NEUTROPHILS % 56.1 % (36.0-66.0); PLATELET COUNT, AUTOMATED 231 10^3/uL (150-450); RED BLOOD COUNT 4.17 10^6/uL (4.30-6.10); WHITE BLOOD COUNT 3.1 10^3/uL (4.0-10.0)
[2024-06-29 15:39] LABS: ALBUMIN 3.3 G/DL (3.2-5.2); ALKALINE PHOSPHATASE 72 U/L (46-116); ALT/SGPT 24 U/L (7.0-40); AST/SGOT 9 U/L (<34); BILIRUBIN,TOTAL 0.2 MG/DL (0.3-1.2); BLOOD UREA NITROGEN 9 MG/DL (9-23); CALCIUM LEVEL 8.8 MG/DL (8.5-10.1); CARBON DIOXIDE LEVEL 24 MMOL/L (20-31); CHLORIDE LEVEL 110 MMOL/L (98-107); GLOMERULAR FILTRATION RATE > 60.0 (>60); GLUCOSE, FASTING 101 MG/DL (60-100); POTASSIUM SERUM 3.9 MMOL/L (3.5-5.1); SODIUM LEVEL 138 MMOL/L (136-145); TOTAL PROTEIN 6.7 G/DL (5.7-8.2)
== END ==
LOC: M PLALAB 09:57
PROVIDERS: ATTEND Psychiatry & Neurology Neurology
DX: G40.814 Lennox-Gastaut syndrome, intractable, without status epilepticus (principal)

== ENCOUNTER → 2024-08-24 | Outpatient (CLI) | payer MEDICAID ==
[2024-08-24 19:11] LABS: BASO % 0.2 % (0.0-1.0); EOS # 0.1 10^3/uL (0.0-0.5); EOS % 1.9 % (0.0-3.0); HEMATOCRIT 39.1 % (42.0-52.0); LYMPH # 0.8 10^3/uL (1.5-5.0); MEAN CORPUSCULAR HEMOGLOBIN 30.4 pg (27.0-33.0); MEAN CORPUSCULAR HGB CONC 33.2 g/dl (32.0-36.5); MEAN CORPUSCULAR VOLUME 91.4 fl (80.0-96.0); MONO # 0.4 10^3/uL (0.0-0.8); MONO % 8.7 % (2.0-8.0); PLATELET COUNT, AUTOMATED 246 10^3/uL (150-450); RED BLOOD COUNT 4.28 10^6/uL (4.30-6.10); WHITE BLOOD COUNT 4.3 10^3/uL (4.0-10.0)
[2024-08-24 19:48] LABS: FERRITIN 12.3 NG/ML (10.5-307.3); TOTAL 25(OH) VITAMIN D 56.8 NG/ML (20.0-100.0)
[2024-08-24 19:49] LABS: VITAMIN B12 LEVEL 891 PG/ML (211-911)
[2024-08-24 19:50] LABS: IRON (FE) 118 UG/DL (65-175); PERCENT SATURATION 36.6 % (19.7-50.0); TOTAL IRON BINDING CAPACITY 322 UG/DL (250-425)
[2024-08-24 21:54] LABS: ALBUMIN 3.9 G/DL (3.2-5.2); ALKALINE PHOSPHATASE 83 U/L (46-116); ALT/SGPT 27 U/L (7.0-40); AST/SGOT 11 U/L (<34); BILIRUBIN,TOTAL 0.3 MG/DL (0.3-1.2); BLOOD UREA NITROGEN 10 MG/DL (9-23); CALCIUM LEVEL 9.9 MG/DL (8.5-10.1); CARBON DIOXIDE LEVEL 24 MMOL/L (20-31); CHLORIDE LEVEL 108 MMOL/L (98-107); CREATININE FOR GFR 0.91 MG/DL (0.70-1.30); GLOMERULAR FILTRATION RATE > 60.0 (>60); GLUCOSE, FASTING 80 MG/DL (60-100); POTASSIUM SERUM 4.2 MMOL/L (3.5-5.1); PTH INTACT 33.4 PG/ML (18.5-88.0); SODIUM LEVEL 140 MMOL/L (136-145); TOTAL PROTEIN 7.4 G/DL (5.7-8.2)
== END ==
LOC: M PLALAB 16:09
PROVIDERS: ATTEND Family Medicine
DX: D50.9 Iron deficiency anemia, unspecified (principal); E55.9 Vitamin D deficiency, unspecified; E53.8 Deficiency of other specified B group vitamins

== ENCOUNTER → 2024-08-24 | Outpatient (REF) | payer MEDICAID | LOC: M SFHCPLAZ 15:30 | PROVIDERS: ATTEND Family Medicine | DX: D50.9 Iron deficiency anemia, unspecified (principal); E55.9 Vitamin D deficiency, unspecified; E53.8 Deficiency of other specified B group vitamins; Z53.9 Procedure and treatment not carried out, unspecified reason ==

== ENCOUNTER → 2024-11-11 | Outpatient (CLI) | payer MEDICAID ==
[~2024-11-11] MED LIST changes: -LACT10SO3 PO; +LACT10SO94 PO
[2024-11-11 18:10] LABS: BASO % 0.3 % (0.0-1.0); EOS # 0.1 10^3/uL (0.0-0.5); EOS % 3.3 % (0.0-3.0); HEMATOCRIT 36.8 % (42.0-52.0); LYMPH # 0.8 10^3/uL (1.5-5.0); LYMPH % 20.5 % (24.0-44.0); MEAN CORPUSCULAR HEMOGLOBIN 29.9 pg (27.0-33.0); MEAN CORPUSCULAR HGB CONC 32.6 g/dl (32.0-36.5); MEAN CORPUSCULAR VOLUME 91.5 fl (80.0-96.0); MONO # 0.3 10^3/uL (0.0-0.8); MONO % 7.9 % (2.0-8.0); NEUTROPHILS # 2.5 10^3/uL (1.5-8.5); NEUTROPHILS % 67.7 % (36.0-66.0); PLATELET COUNT, AUTOMATED 243 10^3/uL (150-450); RED BLOOD COUNT 4.02 10^6/uL (4.30-6.10); WHITE BLOOD COUNT 3.7 10^3/uL (4.0-10.0)
[2024-11-11 18:31] LABS: ALBUMIN 3.3 G/DL (3.2-5.2); ALKALINE PHOSPHATASE 75 U/L (40-129); ALT/SGPT 25 U/L (7.0-40); AST/SGOT 10 U/L (<34); BILIRUBIN,TOTAL < 0.2 MG/DL (0.3-1.2); BLOOD UREA NITROGEN 14 MG/DL (9-23); CALCIUM LEVEL 9.5 MG/DL (8.5-10.1); CARBON DIOXIDE LEVEL 23 MMOL/L (20-31); CHLORIDE LEVEL 108 MMOL/L (98-107); CREATININE FOR GFR 0.95 MG/DL (0.70-1.30); GLOMERULAR FILTRATION RATE > 60.0 (>60); GLUCOSE, FASTING 106 MG/DL (60-100); POTASSIUM SERUM 3.9 MMOL/L (3.5-5.1); SODIUM LEVEL 138 MMOL/L (136-145); TOTAL PROTEIN 6.9 G/DL (5.7-8.2)
== END ==
LOC: M PLALAB 14:32
PROVIDERS: ATTEND Psychiatry & Neurology Neurology
DX: G40.814 Lennox-Gastaut syndrome, intractable, without status epilepticus (principal)

== ENCOUNTER → 2025-02-06 | Outpatient (CLI) | payer MEDICAID ==
[2025-02-06 09:48] LABS: BASO % 0.3 % (0.0-1.0); HEMATOCRIT 39.4 % (42.0-52.0); HEMOGLOBIN 12.6 g/dl (13.5-17.5); LYMPH # 0.7 10^3/uL (1.5-5.0); LYMPH % 22.9 % (24.0-44.0); MEAN CORPUSCULAR HEMOGLOBIN 29.2 pg (27.0-33.0); MEAN CORPUSCULAR VOLUME 91.4 fl (80.0-96.0); MONO # 0.3 10^3/uL (0.0-0.8); MONO % 9.9 % (2.0-8.0); NEUTROPHILS # 2.2 10^3/uL (1.5-8.5); NEUTROPHILS % 66.6 % (36.0-66.0); PLATELET COUNT, AUTOMATED 248 10^3/uL (150-450); RED BLOOD COUNT 4.31 10^6/uL (4.30-6.10); WHITE BLOOD COUNT 3.2 10^3/uL (4.0-10.0)
[2025-02-06 10:10] LABS: ALBUMIN 3.6 G/DL (3.2-5.2); ALKALINE PHOSPHATASE 70 U/L (40-129); ALT/SGPT 32 U/L (7.0-40); AST/SGOT 15 U/L (<34); BILIRUBIN,TOTAL 0.2 MG/DL (0.3-1.2); BLOOD UREA NITROGEN 10 MG/DL (9-23); CALCIUM LEVEL 9.4 MG/DL (8.5-10.1); CARBON DIOXIDE LEVEL 24 MMOL/L (20-31); CHLORIDE LEVEL 106 MMOL/L (98-107); CREATININE FOR GFR 1.02 MG/DL (0.70-1.30); GLOMERULAR FILTRATION RATE > 60.0 (>60); GLUCOSE, FASTING 88 MG/DL (60-100); POTASSIUM SERUM 4.3 MMOL/L (3.5-5.1); SODIUM LEVEL 138 MMOL/L (136-145); TOTAL PROTEIN 7.3 G/DL (5.7-8.2)
[2025-02-06 10:12] LABS: FERRITIN 12.3 NG/ML (10.5-307.3); VITAMIN B12 LEVEL 956 PG/ML (211-911)
== END ==
LOC: M LAB 08:47
PROVIDERS: ATTEND Family Medicine
DX: D50.9 Iron deficiency anemia, unspecified (principal); E55.9 Vitamin D deficiency, unspecified; E53.8 Deficiency of other specified B group vitamins

== ENCOUNTER 2025-02-09 15:50 | Outpatient (CLI) | payer MEDICAID ==
[2025-02-09] MEDS: ZOLEDRONIC ACID 5 MG in IV 1 EA IV ONE (16:04)
== END 2025-02-09 16:40 ==
LOC: M INFU 15:50
PROVIDERS: ATTEND Family Medicine
DX: M81.0 Age-related osteoporosis without current pathological fracture (principal)
CPT/HCPCS: 96413; J3489

== ENCOUNTER → 2025-02-25 | Outpatient (CLI) | payer MEDICAID ==
[2025-02-25 18:30] LABS: BASO % 0.5 % (0.0-1.0); EOS % 0.3 % (0.0-3.0); HEMATOCRIT 36.5 % (42.0-52.0); HEMOGLOBIN 12.1 g/dl (13.5-17.5); LYMPH # 0.8 10^3/uL (1.5-5.0); LYMPH % 22.7 % (24.0-44.0); MEAN CORPUSCULAR HEMOGLOBIN 30.3 pg (27.0-33.0); MEAN CORPUSCULAR HGB CONC 33.2 g/dl (32.0-36.5); MEAN CORPUSCULAR VOLUME 91.5 fl (80.0-96.0); MONO # 0.4 10^3/uL (0.0-0.8); MONO % 9.6 % (2.0-8.0); NEUTROPHILS # 2.4 10^3/uL (1.5-8.5); NEUTROPHILS % 66.6 % (36.0-66.0); PLATELET COUNT, AUTOMATED 251 10^3/uL (150-450); RED BLOOD COUNT 3.99 10^6/uL (4.30-6.10); WHITE BLOOD COUNT 3.7 10^3/uL (4.0-10.0)
[2025-02-25 18:56] LABS: ALBUMIN 3.6 G/DL (3.2-5.2); ALKALINE PHOSPHATASE 69 U/L (40-129); ALT/SGPT 25 U/L (7.0-40); AST/SGOT 14 U/L (<34); BILIRUBIN,TOTAL 0.2 MG/DL (0.3-1.2); BLOOD UREA NITROGEN 12 MG/DL (9-23); CALCIUM LEVEL 8.9 MG/DL (8.5-10.1); CARBON DIOXIDE LEVEL 22 MMOL/L (20-31); CHLORIDE LEVEL 106 MMOL/L (98-107); CREATININE FOR GFR 1.01 MG/DL (0.70-1.30); GLOMERULAR FILTRATION RATE > 60.0 (>60); GLUCOSE, FASTING 81 MG/DL (60-100); POTASSIUM SERUM 4.5 MMOL/L (3.5-5.1); SODIUM LEVEL 138 MMOL/L (136-145)
== END ==
LOC: M PLALAB 15:48
PROVIDERS: ATTEND Psychiatry & Neurology Neurology
DX: G40.814 Lennox-Gastaut syndrome, intractable, without status epilepticus (principal)

== ENCOUNTER → 2025-04-12 | Outpatient (CLI) | payer MEDICAID ==
[~2025-04-12] MED LIST changes: +TOPI-257 PO; -TOPI100T9 PO
[2025-04-12 16:00] LABS: ALBUMIN 3.5 G/DL (3.2-5.2); ALKALINE PHOSPHATASE 74 U/L (40-129); ALT/SGPT 23 U/L (7.0-40); AST/SGOT 11 U/L (<34); BILIRUBIN,TOTAL 0.2 MG/DL (0.3-1.2); BLOOD UREA NITROGEN 10 MG/DL (9-23); CALCIUM LEVEL 9.4 MG/DL (8.5-10.1); CARBON DIOXIDE LEVEL 23 MMOL/L (20-31); CHLORIDE LEVEL 106 MMOL/L (98-107); CREATININE FOR GFR 1.01 MG/DL (0.70-1.30); GLOMERULAR FILTRATION RATE > 90.0 (>60); GLUCOSE, FASTING 95 MG/DL (60-100); POTASSIUM SERUM 4.5 MMOL/L (3.5-5.1); SODIUM LEVEL 139 MMOL/L (136-145)
== END ==
LOC: M PLAIMG 13:49
PROVIDERS: ATTEND Psychiatry & Neurology Neurology
DX: G40.814 Lennox-Gastaut syndrome, intractable, without status epilepticus (principal)

== ENCOUNTER 2025-07-22 10:34 | Day surgery (SDC) | payer MEDICAID ==
[~2025-07-22] VITALS: Ht 154.9 cm; Wt 52.5 kg
[~2025-07-22 10:34] MED LIST changes: +CLAR5TAB11 PO; +EPID100S PO
[2025-07-22] MEDS ORDERED: KETAMINE HCL 200 MG/20 ML VIAL As Ordered ONE (12:10)
[2025-07-22] MEDS ORDERED: LABETALOL 100 MG/20 ML VIAL As Ordered ONE (12:17)
[2025-07-22 13:15] VITALS: BP 107/86; O2SAT 94
== END 2025-07-22 13:20 | disposition home or self-care (01) ==
LOC: M OPP 10:34
PROVIDERS: ATTEND Internal Medicine Gastroenterology
DX: K59.00 Constipation, unspecified (principal); K22.89 Other specified disease of esophagus; K44.9 Diaphragmatic hernia without obstruction or gangrene; R93.3 Abnormal findings on diagnostic imaging of other parts of digestive tract; R12 Heartburn; Z79.899 Other long term (current) drug therapy; R56.9 Unspecified convulsions
CPT/HCPCS: 43239; 45378; 88305; J1920

== ENCOUNTER → 2025-08-30 | Outpatient (CLI) | payer MEDICAID ==
[2025-08-30 18:38] LABS: BASO # 0.0 10^3/uL (0.0-0.2); BASO % 0.0 % (0.0-1.0); EOS # 0.0 10^3/uL (0.0-0.5); EOS % 0.0 % (0.0-3.0); LYMPH # 0.8 10^3/uL (1.5-5.0); LYMPH % 23.1 % (24.0-44.0); MONO # 0.2 10^3/uL (0.0-0.8); MONO % 6.5 % (2.0-8.0); NEUTROPHILS # 2.3 10^3/uL (1.5-8.5); NEUTROPHILS % 70.1 % (36.0-66.0); PLATELET COUNT, AUTOMATED 200 10^3/uL (150-450)
[2025-08-30 18:51] LABS: ALT/SGPT 17 U/L (7.0-40); AST/SGOT 11 U/L (<34); CALCIUM LEVEL 8.6 MG/DL (8.5-10.1); CARBON DIOXIDE LEVEL 20 MMOL/L (20-31); CHLORIDE LEVEL 109 MMOL/L (98-107); CREATININE FOR GFR 0.99 MG/DL (0.70-1.30); GLOMERULAR FILTRATION RATE > 90.0 (>60); POTASSIUM SERUM 4.0 MMOL/L (3.5-5.1); SODIUM LEVEL 141 MMOL/L (136-145)
== END ==
LOC: M PLALAB 14:41
PROVIDERS: ATTEND Psychiatry & Neurology Neurology
DX: G40.814 Lennox-Gastaut syndrome, intractable, without status epilepticus (principal)

== ENCOUNTER → 2025-08-30 | Outpatient (CLI) | payer MEDICAID ==
[2025-08-30 18:38] LABS: BASO # 0.0 10^3/uL (0.0-0.2); BASO % 0.3 % (0.0-1.0); EOS # 0.0 10^3/uL (0.0-0.5); EOS % 0.0 % (0.0-3.0); LYMPH # 0.7 10^3/uL (1.5-5.0); LYMPH % 23.2 % (24.0-44.0); MONO # 0.2 10^3/uL (0.0-0.8); MONO % 7.6 % (2.0-8.0); NEUTROPHILS # 2.2 10^3/uL (1.5-8.5); NEUTROPHILS % 68.9 % (36.0-66.0); PLATELET COUNT, AUTOMATED 199 10^3/uL (150-450)
[2025-08-30 18:46] LABS: TOTAL 25(OH) VITAMIN D 42.2 NG/ML (20.0-100.0)
[2025-08-30 18:49] LABS: ALT/SGPT 16 U/L (7.0-40); AST/SGOT 11 U/L (<34); CALCIUM LEVEL 8.6 MG/DL (8.5-10.1); CARBON DIOXIDE LEVEL 20 MMOL/L (20-31); CHLORIDE LEVEL 111 MMOL/L (98-107); CHOLESTEROL LEVEL 221 MG/DL (<200); CHOLESTEROL RISK RATIO 5.48 (<5); CREATININE FOR GFR 0.97 MG/DL (0.70-1.30); GLOMERULAR FILTRATION RATE > 90.0 (>60); IRON (FE) 57 UG/DL (65-175); LDL CHOLESTEROL 147.5 MG/DL (<100); NON-HDL-C 180.7 MG/DL; PERCENT SATURATION 17.3 % (19.7-50.0); POTASSIUM SERUM 4.1 MMOL/L (3.5-5.1); PTH INTACT 33.2 PG/ML (18.5-88.0); SODIUM LEVEL 142 MMOL/L (136-145); TRIGLYCERIDES LEVEL 166 MG/DL (<150)
[2025-08-30 18:53] LABS: VITAMIN B12 LEVEL 544 PG/ML (211-911)
== END ==
LOC: M PLALAB 14:36
PROVIDERS: ATTEND Family Medicine
DX: E53.8 Deficiency of other specified B group vitamins (principal); E55.9 Vitamin D deficiency, unspecified; D50.9 Iron deficiency anemia, unspecified; E78.2 Mixed hyperlipidemia

== ENCOUNTER 2025-10-20 15:04 | Outpatient (CLI) | payer MEDICAID ==
[~2025-10-20 15:04] MED LIST changes: +ALBUTEROL SULFATE 2.5 MG/0.5 ML INH CONCENTRATE NEB SOLN INH PRN; +EPINEPHrine INJ 1 MG/ML 1ML AMP IM PRN; +diphenhydrAMINE 50 MG/ML VIAL IV PRN
[2025-10-20] MEDS: FERRIC CARBOXYMALTOSE 750 MG (VIAL MATE) IN 100ML NS IV ONE (16:07)
[2025-10-20 17:00] VITALS: BP 114/75; O2SAT 98
== END 2025-10-20 17:00 | disposition home or self-care (01) ==
LOC: M INFU 15:04
PROVIDERS: ATTEND Family Medicine
DX: D50.9 Iron deficiency anemia, unspecified (principal)
CPT/HCPCS: 96365; J1439

== ENCOUNTER 2025-11-08 14:32 | Emergency (ER) | payer MEDICAID ==
[~2025-11-08 14:32] MED LIST changes: -ALBUTEROL SULFATE 2.5 MG/0.5 ML INH CONCENTRATE NEB SOLN INH PRN; -EPINEPHrine INJ 1 MG/ML 1ML AMP IM PRN; -diphenhydrAMINE 50 MG/ML VIAL IV PRN
[2025-11-08 18:12] LABS: BASO # 0.0 10^3/uL (0.0-0.2); BASO % 0.5 % (0.0-1.0); EOS # 0.0 10^3/uL (0.0-0.5); EOS % 0.0 % (0.0-3.0); LYMPH # 0.8 10^3/uL (1.5-5.0); LYMPH % 18.7 % (24.0-44.0); MONO # 0.3 10^3/uL (0.0-0.8); MONO % 7.0 % (2.0-8.0); NEUTROPHILS # 3.0 10^3/uL (1.5-8.5); NEUTROPHILS % 73.3 % (36.0-66.0); PLATELET COUNT, AUTOMATED 278 10^3/uL (150-450)
[2025-11-08 18:35] LABS: CALCIUM LEVEL 8.9 MG/DL (8.5-10.1); CARBON DIOXIDE LEVEL 22 MMOL/L (20-31); CHLORIDE LEVEL 108 MMOL/L (98-107); CREATININE FOR GFR 0.96 MG/DL (0.70-1.30); GLOMERULAR FILTRATION RATE > 90.0 (>60); POTASSIUM SERUM 4.5 MMOL/L (3.5-5.1); SODIUM LEVEL 139 MMOL/L (136-145)
[2025-11-08] MEDS ORDERED: AMOX875T2 PO (19:20)
[2025-11-08] MEDS: AUGMENTIN 875 MG TAB PO ONE (19:36)
[2025-11-08 19:37] VITALS: BP 132/90; TEMP 98.2; O2SAT 100
== END 2025-11-08 19:44 | disposition home or self-care (01) ==
LOC: M ED 14:32
DX: J18.9 Pneumonia, unspecified organism (principal)

== ENCOUNTER → 2025-11-11 | Outpatient (CLI) | payer MEDICAID ==
[~2025-11-11] MED LIST changes: +AMOX875T2 PO
[2025-11-11 19:46] LABS: ALT/SGPT 21 U/L (7.0-40); AST/SGOT 14 U/L (<34); CALCIUM LEVEL 8.7 MG/DL (8.5-10.1); CARBON DIOXIDE LEVEL 22 MMOL/L (20-31); CHLORIDE LEVEL 108 MMOL/L (98-107); CHOLESTEROL LEVEL 214 MG/DL (<200); CHOLESTEROL RISK RATIO 5.31 (<5); CREATININE FOR GFR 0.95 MG/DL (0.70-1.30); GLOMERULAR FILTRATION RATE > 90.0 (>60); LDL CHOLESTEROL 135.5 MG/DL (<100); NON-HDL-C 173.7 MG/DL; POTASSIUM SERUM 4.4 MMOL/L (3.5-5.1); SODIUM LEVEL 140 MMOL/L (136-145); TRIGLYCERIDES LEVEL 191 MG/DL (<150)
[2025-11-11 19:48] LABS: VITAMIN B12 LEVEL 587 PG/ML (211-911)
[2025-11-11 20:00] LABS: BASO # 0.0 10^3/uL (0.0-0.2); BASO % 0.6 % (0.0-1.0); EOS # 0.0 10^3/uL (0.0-0.5); EOS % 0.0 % (0.0-3.0); LYMPH # 0.6 10^3/uL (1.5-5.0); LYMPH % 19.3 % (24.0-44.0); MONO # 0.3 10^3/uL (0.0-0.8); MONO % 8.0 % (2.0-8.0); NEUTROPHILS # 2.3 10^3/uL (1.5-8.5); NEUTROPHILS % 71.8 % (36.0-66.0); PLATELET COUNT, AUTOMATED 292 10^3/uL (150-450)
== END ==
LOC: M PLALAB 15:35
PROVIDERS: ATTEND Family Medicine
DX: D50.9 Iron deficiency anemia, unspecified (principal); E55.9 Vitamin D deficiency, unspecified; E78.2 Mixed hyperlipidemia; E53.8 Deficiency of other specified B group vitamins